=== PATIENT | male | born 1985 | race American Indian/Alaskan Native ===

== ENCOUNTER 2017-03-08 00:49 | Emergency (ER) | payer MEDICAID ==
[2017-03-08 01:02] VITALS: BP 164/90
[2017-03-08] MEDS ORDERED: HYDROmorphone 1 MG/ML Syringe IM ONE (01:04)
[2017-03-08] MEDS ORDERED: Ketorolac 30 MG/ML SDV IM ONE (01:04)
[2017-03-08] MEDS ORDERED: Promethazine 25 MG/ML SDV IM ONE (01:04)
--- NOTE | 2017-03-08 01:10 | EDM.PDOC ---
ED HPI GENERAL MEDICAL PROBLEM - General Chief Complaint: Back Pain or Injury Stated Complaint: BACK AND LEG PAIN Time Seen by Provider: 03/08/17 01:05 Source of Information: Reports: Patient History Limitations: Reports: No Limitations - History of Present Illness INITIAL COMMENTS - FREE TEXT/NARRATIVE: s/p lumbar laminiectomy since Nov' still in lot of pain but tolerable till tonight. Lower Back Pain Score (Numeric/FACES): 8 - Related Data Allergies Allergy/AdvReac Type Severity Reaction Status Date / Time No Known Allergies Allergy Verified 03/08/17 00:57 Past Medical History - Past Health History Medical/Surgical History: Denies Medical/Surgical History HEENT History: Reports: None Cardiovascular History: Reports: None Respiratory History: Reports: Asthma Gastrointestinal History: Reports: GERD, Hiatal Hernia Genitourinary History: Reports: None Musculoskeletal History: Reports: Other (See Below) Other Musculoskeletal History: left knee injury 1 year ago. buldging disc. L4-5 Neurological History: Reports: Other (See Below) Other Neuro History: bulging L4 & L5 discs Psychiatric History: Reports: None Endocrine/Metabolic History: Reports: None Hematologic History: Reports: None Immunologic History: Reports: None Oncologic (Cancer) History: Reports: None Dermatologic History: Reports: None - Infectious Disease History Infectious Disease History: Reports: Chicken Pox - Past Surgical History GI Surgical History: Reports: Other (See Below) Social & Family History - Family History : Reports: Diabetic Nephropathy Other Family History: mother Musculoskeletal: Reports: Arthritis Other Musculoskeletal Family History: mother Oncologic: Reports: Brain, Lung Other Oncologic Family History: father - Tobacco Use Smoking Status *Q: Light Tobacco Smoker Years of Tobacco use: 10 Packs/Tins Daily: 0.5 Used Tobacco, but Quit: No Second Hand Smoke Exposure: No - Caffeine Use Caffeine Use: Reports: Coffee, Energy Drinks, Soda - Alcohol Use Days Per Week of Alcohol Use: 0 Number of Drinks Per Day: 0 Total Drinks Per Week: 0 - Recreational Drug Use Recreational Drug Use: No - Living Situation & Occupation Living situation: Reports: with Family Occupation: Employed ED ROS GENERAL - Review of Systems Review Of Systems: ROS reveals no pertinent complaints other than HPI. ED EXAM,LOWER BACK PAIN/INJURY - Physical Exam Exam: See Below Exam Limited By: No Limitations General Appearance: Alert, WD/WN, Mild Distress, Other (pain) Ears: Hearing Grossly Normal Throat/Mouth: Normal Voice, No Airway Compromise Head: Atraumatic Neck: Non-Tender, Full Range of Motion Respiratory/Chest: No Respiratory Distress Cardiovascular: Regular Rate, Rhythm GI/Abdominal: Soft, Non-Tender Back Exam: Decreased Range of Motion, Muscle Spasm, Paraspinal Tenderness, Other (scar no s/s infection, gait limited to pain.) Neurological: Alert, No Motor/Sensory Deficits, Oriented x 3 Psychiatric: Tearful Skin Exam: Warm, Dry Lymphatic: No Adenopathy Course - Vital Signs Last Recorded V/S: Last Vital Signs Temp 35.6 C 03/08/17 00:58 Pulse 94 03/08/17 00:58 Resp 18 03/08/17 00:58 BP 164/90 H 03/08/17 00:58 Pulse Ox 97 03/08/17 00:58 - Orders/Labs/Meds Orders: Active Orders 24 hr Category Date Time Status HYDROmorphone [Dilaudid] Med 03/08/17 01:04 Once 1 mg IM ONETIME ONE Ketorolac [Toradol] Med 03/08/17 01:04 Once 30 mg IM ONETIME ONE Promethazine [Phenergan] Med 03/08/17 01:04 Once 25 mg IM ONETIME ONE Departure - Departure Time of Disposition: 01:07 Disposition: Home, Self-Care 01 Condition: good Clinical Impression: Lumbar radiculopathy, acute - Discharge Information Instructions: Back Pain, Adult, [id number] Forms: ED Department Discharge Additional Instructions: 1) rest avoid bendin lifting straining 2) try heat or ice to sore areas 3) follow up at clinic or recheck as needed rx given: robaxin 500 bid prn x 12 vicodin 5/325mg tid prn x 12 - My Orders Last 24 Hours: My Active Orders 03/08/17 01:04 HYDROmorphone [Dilaudid] 1 mg IM ONETIME ONE Ketorolac [Toradol] 30 mg IM ONETIME ONE Promethazine [Phenergan] 25 mg IM ONETIME ONE - Assessment/Plan Last 24 Hours: My Active Orders 03/08/17 01:04 HYDROmorphone [Dilaudid] 1 mg IM ONETIME ONE Ketorolac [Toradol] 30 mg IM ONETIME ONE Promethazine [Phenergan] 25 mg IM ONETIME ONE
== END 2017-03-08 01:39 | disposition home or self-care (01) ==
LOC: DL.ED 00:49
DX: M54.16 Radiculopathy, lumbar region (principal); J45.909 Unspecified asthma, uncomplicated; K21.9 Gastro-esophageal reflux disease without esophagitis; F17.210 Nicotine dependence, cigarettes, uncomplicated
CPT/HCPCS: 96372; 99283; J1170; J1885; J2550

== ENCOUNTER 2017-06-15 00:33 | Emergency (ER) | payer MEDICAID ==
[2017-06-15 00:42] VITALS: BP 140/82
[2017-06-15] MEDS ORDERED: Promethazine 25 MG/ML SDV IM ONE (00:56)
[2017-06-15] MEDS ORDERED: Butorphanol 2 MG/ML SDV IM ONE (00:56)
--- NOTE | 2017-06-15 01:03 | EDM.PDOC ---
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 states on pain management and able to go to work wearing knee brace but tonight been worse. Left Knee Pain Score (Numeric/FACES): 7 - Related Data Allergies Allergy/AdvReac Type Severity Reaction Status Date / Time No Known Allergies Allergy Verified 06/15/17 00:38 Home Meds: Home Meds oxyCODONE HCl/Acetaminophen [Endocet 10-325 mg Tablet] 1 each PO ASDIRECTED PRN 06/15/17 [History] Past Medical History - Past Health History Medical/Surgical History: Denies Medical/Surgical History HEENT History: Reports: None Cardiovascular History: Reports: None Respiratory History: Reports: Asthma Gastrointestinal History: Reports: GERD, Hiatal Hernia Genitourinary History: Reports: None Musculoskeletal History: Reports: Other (See Below) Other Musculoskeletal History: left knee injury in 2016. buldging disc. L4-5. Back surgery in 2017 Neurological History: Reports: Other (See Below) Other Neuro History: bulging L4 & L5 discs Psychiatric History: Reports: None Endocrine/Metabolic History: Reports: None Hematologic History: Reports: None Immunologic History: Reports: None Oncologic (Cancer) History: Reports: None Dermatologic History: Reports: None - Infectious Disease History Infectious Disease History: Reports: Chicken Pox - Past Surgical History Head Surgeries/Procedures: Reports: None Social & Family History - Family History : Reports: Diabetic Nephropathy Other Family History: mother Musculoskeletal: Reports: Arthritis Other Musculoskeletal Family History: mother Oncologic: Reports: Brain, Lung Other Oncologic Family History: father - Tobacco Use Smoking Status *Q: Heavy Tobacco Smoker Years of Tobacco use: 10 Packs/Tins Daily: 1 Used Tobacco, but Quit: No Second Hand Smoke Exposure: No - Caffeine Use Caffeine Use: Reports: Coffee, Energy Drinks, Soda - Alcohol Use Days Per Week of Alcohol Use: 0 Number of Drinks Per Day: 0 Total Drinks Per Week: 0 - Recreational Drug Use Recreational Drug Use: No - Living Situation & Occupation Living situation: Reports: with Family Occupation: Employed Review of Systems - Review of Systems Review Of Systems: ROS reveals no pertinent complaints other than HPI. ED EXAM, GENERAL - Physical Exam Exam: See Below Exam Limited By: No Limitations General Appearance: Alert, WD/WN, No Apparent Distress, Mild Distress, Other ( tearful) Ears: Hearing Grossly Normal Throat/Mouth: Normal Voice, No Airway Compromise Head: Atraumatic Neck: Non-Tender, Full Range of Motion Respiratory/Chest: No Respiratory Distress Cardiovascular: Regular Rate, Rhythm GI/Abdominal: Soft, Non-Tender Extremities: Other (left knee exhibit laxity on R/P, gait limited to pain, NV wnl) Neurological: Alert, Oriented, Normal Cognition, Normal Gait, No Motor/Sensory Deficits Psychiatric: Tearful Skin Exam: Warm, Dry, Normal Color Lymphatic: No Adenopathy Course - Vital Signs Last Recorded V/S: Last Vital Signs Temp 35.9 C 06/15/17 00:39 Pulse 70 06/15/17 00:39 Resp 18 06/15/17 00:39 BP 140/82 06/15/17 00:39 Pulse Ox 100 06/15/17 00:39 - Orders/Labs/Meds Orders: Active Orders 24 hr Category Date Time Status Butorphanol [Stadol] Med 06/15/17 00:56 Once 2 mg IM ONETIME ONE Promethazine [Phenergan] Med 06/15/17 00:56 Once 50 mg IM ONETIME ONE Medication Orders Butorphanol Tartrate (Stadol) 2 mg IM ONETIME ONE Stop: 06/15/17 00:57 Promethazine HCl (Phenergan) 50 mg IM ONETIME ONE Stop: 06/15/17 00:57 Meds: Medications Generic Name Dose Route Start Last Admin Trade Name Freq PRN Reason Stop Dose Admin Butorphanol Tartrate 2 mg 06/15/17 00:56 Stadol IM 06/15/17 00:57 ONETIME ONE Promethazine HCl 50 mg 06/15/17 00:56 Phenergan IM 06/15/17 00:57 ONETIME ONE Departure - Departure Time of Disposition: 01:01 Disposition: Home, Self-Care 01 Condition: Good Clinical Impression: Internal derangement of knee Qualifiers: Laterality: left Qualified Code(s): M23.92 - Unspecified internal derangement of left knee - Discharge Information Instructions: Knee Effusion, [id number] Forms: ED Department Discharge Additional Instructions: 1) elevate leg as much as possible next 48 hours 2) call ORTHO tomorrow for MRI of left knee 3) continue home meds - My Orders Last 24 Hours: My Active Orders 06/15/17 00:56 Butorphanol [Stadol] 2 mg IM ONETIME ONE Promethazine [Phenergan] 50 mg IM ONETIME ONE - Assessment/Plan Last 24 Hours: My Active Orders 06/15/17 00:56 Butorphanol [Stadol] 2 mg IM ONETIME ONE Promethazine [Phenergan] 50 mg IM ONETIME ONE
== END 2017-06-15 01:21 | disposition home or self-care (01) ==
LOC: DL.ED 00:33
DX: M23.92 Unspecified internal derangement of left knee (principal); J45.909 Unspecified asthma, uncomplicated; K21.9 Gastro-esophageal reflux disease without esophagitis; F17.210 Nicotine dependence, cigarettes, uncomplicated
CPT/HCPCS: 96372; 99283; J0595; J2550

== ENCOUNTER 2017-09-26 23:16 | Emergency (ER) | payer MEDICAID ==
[2017-09-26 23:25] VITALS: BP 144/76
[2017-09-26] MEDS ORDERED: Amoxicillin/Clavulanate K 500-125 MG Tab PO ONE (23:33)
--- NOTE | 2017-09-26 23:40 | EDM.PDOC ---
ED HPI GENERAL MEDICAL PROBLEM - General Chief Complaint: Respiratory Problem Stated Complaint: POSSIBLE BRONCHITIS [id number] Time Seen by Provider: 09/26/17 23:30 Source of Information: Reports: Patient History Limitations: Reports: No Limitations - History of Present Illness INITIAL COMMENTS - FREE TEXT/NARRATIVE: This 31 yo male patient reports to the ED with a 2 day history of head congestion and nasal drainage. The patient reports a history of sinus infections that only improve by antibiotics Onset Date: 09/25/17 Duration: Constant, Getting Worse Location: Reports: Face Quality: Reports: Pressure Severity: Severe Improves with: Reports: None Worsens with: Reports: None Associated Symptoms: Reports: Cough Face Pain Score (Numeric/FACES): 5 - Related Data Allergies Allergy/AdvReac Type Severity Reaction Status Date / Time No Known Allergies Allergy Verified 09/26/17 23:29 Home Meds: Home Meds oxyCODONE HCl/Acetaminophen [Endocet 10-325 mg Tablet] 1 each PO BID 06/15/17 [ History] Past Medical History - Past Health History Medical/Surgical History: Denies Medical/Surgical History HEENT History: Reports: None Cardiovascular History: Reports: None Respiratory History: Reports: Asthma Gastrointestinal History: Reports: GERD, Hiatal Hernia Genitourinary History: Reports: None Musculoskeletal History: Reports: Back Pain, Chronic, Other (See Below) Other Musculoskeletal History: left knee injury in 2016. buldging disc. L4-5. Back surgery in 2017 Neurological History: Reports: Other (See Below) Other Neuro History: bulging L4 & L5 discs Psychiatric History: Reports: None Endocrine/Metabolic History: Reports: None Hematologic History: Reports: None Immunologic History: Reports: None Oncologic (Cancer) History: Reports: None Dermatologic History: Reports: None - Infectious Disease History Infectious Disease History: Reports: Chicken Pox - Past Surgical History Head Surgeries/Procedures: Reports: None Social & Family History - Family History : Reports: Diabetic Nephropathy Other Family History: mother Musculoskeletal: Reports: Arthritis Other Musculoskeletal Family History: mother Oncologic: Reports: Brain, Lung Other Oncologic Family History: father - Tobacco Use Smoking Status *Q: Current Every Day Smoker Years of Tobacco use: 10 Packs/Tins Daily: 0.5 Used Tobacco, but Quit: No Second Hand Smoke Exposure: Yes - Caffeine Use Caffeine Use: Reports: Coffee, Energy Drinks, Soda - Alcohol Use Days Per Week of Alcohol Use: 0 Number of Drinks Per Day: 0 Total Drinks Per Week: 0 - Recreational Drug Use Recreational Drug Use: No - Living Situation & Occupation Living situation: Reports: with Family Occupation: Employed ED ROS GENERAL - Review of Systems Review Of Systems: ROS reveals no pertinent complaints other than HPI. ED EXAM, GENERAL - Physical Exam Exam: See Below Exam Limited By: No Limitations General Appearance: Alert, WD/WN, Moderate Distress Eye Exam: Bilateral Eye: EOMI, Normal Inspection, PERRL Ears: Normal External Exam, Normal Canal, Hearing Grossly Normal, Normal TMs Nose: Normal Inspection, No Blood, Nasal Drainage Throat/Mouth: Normal Inspection, Normal Lips, Normal Teeth, Normal Gums, Normal Oropharynx, Normal Voice, No Airway Compromise Head: Atraumatic, Normocephalic, Sinus Tenderness Neck: Normal Inspection, Supple, Non-Tender, Full Range of Motion Respiratory/Chest: No Respiratory Distress, Lungs Clear, Normal Breath Sounds, No Accessory Muscle Use, Chest Non-Tender Cardiovascular: Normal Peripheral Pulses, Regular Rate, Rhythm, No Edema, No Gallop, No JVD, No Murmur, No Rub GI/Abdominal: Normal Bowel Sounds, Soft, Non-Tender, No Organomegaly, No Distention, No Abnormal Bruit, No Mass (Male) Exam: Deferred Rectal (Males) Exam: Deferred Back Exam: Normal Inspection, Full Range of Motion, NT Extremities: Normal Inspection, Normal Range of Motion, Non-Tender, Normal Capillary Refill, No Pedal Edema Neurological: Alert, Oriented, CN II-XII Intact, Normal Cognition, Normal Gait, Normal Reflexes, No Motor/Sensory Deficits Psychiatric: Normal Affect, Normal Mood Skin Exam: Warm, Dry, Intact, Normal Color, No Rash Lymphatic: No Adenopathy Course - Vital Signs Last Recorded V/S: Last Vital Signs Temp 35.9 C 09/26/17 23:22 Pulse 95 09/26/17 23:22 Resp 18 09/26/17 23:22 BP 144/76 H 09/26/17 23:22 Pulse Ox 96 09/26/17 23:22 - Orders/Labs/Meds Meds: Medications Discontinued Medications Generic Name Dose Route Start Last Admin Trade Name Freq PRN Reason Stop Dose Admin Amoxicillin/Clavulanate Potassium 1 tab 09/26/17 23:33 Augmentin 500 Mg\125 Mg PO 09/26/17 23:34 ONETIME ONE Departure - Departure Time of Disposition: 23:36 Disposition: Home, Self-Care 01 Condition: Fair Clinical Impression: Sinusitis Qualifiers: Sinusitis location: maxillary Chronicity: acute Recurrence: non-recurrent Qualified Code(s): J01.00 - Acute maxillary sinusitis, unspecified - Discharge Information Instructions: Sinusitis, Adult, [id number] Care Plan Goals: The patient was advised of the examination results during the visit. The patient was given an oral dose of Augmentin while in the ED. The patient was discharged with a script for Augmentin (500/125) to take 1 by mouth 2 times per day for 10 days. If the patient has any additional symptoms or concerns, the patient should follow-up with his primary care facility or return to the ED.
== END 2017-09-27 00:05 | disposition home or self-care (01) ==
LOC: DL.ED 23:16
DX: J01.00 Acute maxillary sinusitis, unspecified (principal); F17.210 Nicotine dependence, cigarettes, uncomplicated
CPT/HCPCS: 99283; A9270

== ENCOUNTER 2017-11-05 23:35 | Emergency (ER) | payer SELFPAY ==
[2017-11-05 23:50] VITALS: BP 128/84
[2017-11-05] MEDS ORDERED: Albuterol/Ipratropium 3.0-0.5 MG/3 ML Neb Soln NEB ONE (23:58)
--- NOTE | 2017-11-06 00:02 | EDM.PDOC ---
ED HPI GENERAL MEDICAL PROBLEM - General Chief Complaint: Respiratory Problem Stated Complaint: COUGHING [id number] Time Seen by Provider: 11/05/17 23:59 Source of Information: Reports: Patient History Limitations: Reports: No Limitations - History of Present Illness INITIAL COMMENTS - FREE TEXT/NARRATIVE: 1 week h/o cough congestion not getting better. - Related Data Allergies Allergy/AdvReac Type Severity Reaction Status Date / Time No Known Allergies Allergy Verified 11/05/17 23:53 Home Meds: Home Meds oxyCODONE HCl/Acetaminophen [Endocet 10-325 mg Tablet] 1 each PO BID 06/15/17 [ History] Past Medical History - Past Health History Medical/Surgical History: Denies Medical/Surgical History HEENT History: Reports: None Cardiovascular History: Reports: None Respiratory History: Reports: Asthma Gastrointestinal History: Reports: GERD, Hiatal Hernia Genitourinary History: Reports: None Musculoskeletal History: Reports: Back Pain, Chronic, Other (See Below) Other Musculoskeletal History: left knee injury in 2016. buldging disc. L4-5. Back surgery in 2017 Neurological History: Reports: Other (See Below) Other Neuro History: bulging L4 & L5 discs Psychiatric History: Reports: None Endocrine/Metabolic History: Reports: None Hematologic History: Reports: None Immunologic History: Reports: None Oncologic (Cancer) History: Reports: None Dermatologic History: Reports: None - Infectious Disease History Infectious Disease History: Reports: Chicken Pox - Past Surgical History Head Surgeries/Procedures: Reports: None Social & Family History - Family History : Reports: Diabetic Nephropathy Other Family History: mother Musculoskeletal: Reports: Arthritis Other Musculoskeletal Family History: mother Oncologic: Reports: Brain, Lung Other Oncologic Family History: father - Tobacco Use Smoking Status *Q: Current Every Day Smoker Years of Tobacco use: 15 Packs/Tins Daily: 20 Used Tobacco, but Quit: No Second Hand Smoke Exposure: Yes - Caffeine Use Caffeine Use: Reports: Coffee, Soda - Alcohol Use Days Per Week of Alcohol Use: 0 Number of Drinks Per Day: 0 Total Drinks Per Week: 0 - Recreational Drug Use Recreational Drug Use: No - Living Situation & Occupation Living situation: Reports: with Family Occupation: Employed ED ROS GENERAL - Review of Systems Review Of Systems: ROS reveals no pertinent complaints other than HPI. ED EXAM, GENERAL - Physical Exam Exam: See Below Exam Limited By: No Limitations General Appearance: Alert, WD/WN, Mild Distress, Moderate Distress, Other ( episodic cough spasm) Ears: Hearing Grossly Normal Throat/Mouth: Normal Voice, No Airway Compromise Head: Atraumatic Neck: Non-Tender, Full Range of Motion Respiratory/Chest: No Respiratory Distress, No Accessory Muscle Use, Rhonchi, Wheezing. No: Decreased Breath Sounds, Accessory Muscle Use, Retractions, Splinting Cardiovascular: Regular Rate, Rhythm GI/Abdominal: Soft, Non-Tender Neurological: Alert, Oriented, Normal Cognition, Normal Gait, No Motor/Sensory Deficits Psychiatric: Normal Affect, Normal Mood Skin Exam: Warm, Dry, Normal Color Lymphatic: No Adenopathy Course - Vital Signs Last Recorded V/S: Last Vital Signs Temp 36.6 C 11/05/17 23:45 Pulse 101 H 11/05/17 23:45 Resp 21 H 11/05/17 23:45 BP 128/84 11/05/17 23:45 Pulse Ox 91 L 11/05/17 23:45 - Orders/Labs/Meds Orders: Active Orders 24 hr Category Date Time Status RT Aerosol Therapy [RC] ASDIRECTED Care 11/05/17 23:58 Active Chest 2V [CR] Urgent Exams 11/06/17 00:05 Taken Meds: Medications Discontinued Medications Generic Name Dose Route Start Last Admin Trade Name Freq PRN Reason Stop Dose Admin Albuterol/Ipratropium 3 ml 11/05/17 23:58 11/06/17 00:01 Duoneb 3.0-0.5 Mg/3 Ml NEB 11/05/17 23:59 3 ml ONETIME ONE Administration Amoxicillin/Clavulanate Potassium 1 tab 11/06/17 00:44 Augmentin 500 Mg\125 Mg PO 11/06/17 00:45 ONETIME ONE Promethazine HCl/Codeine 5 ml 11/06/17 00:41 Phenergan With Codeine PO 11/06/17 00:42 ONETIME ONE - Re-Assessments/Exams Free Text/Narrative Re-Assessment/Exam: 11/06/17 00:45 results discussed with pt who is feeling better s/p duoneb. Departure - Departure Time of Disposition: 00:46 Disposition: Home, Self-Care 01 Condition: Good Clinical Impression: Bronchospasm with bronchitis, acute - Discharge Information Instructions: Acute Bronchitis, [id number] Forms: ED Department Discharge Additional Instructions: 1) rest and sleep as much as possible 2) take neb treatment 3 times daily as needed rx given; augmentin 500mg bid x 20 albuterol 2.5mg solution tid prn phenergan codeine syrup qid prn 4 oz - My Orders Last 24 Hours: My Active Orders 11/05/17 23:58 RT Aerosol Therapy [RC] ASDIRECTED 11/06/17 00:05 Chest 2V [CR] Urgent - Assessment/Plan Last 24 Hours: My Active Orders 11/05/17 23:58 RT Aerosol Therapy [RC] ASDIRECTED 11/06/17 00:05 Chest 2V [CR] Urgent
[2017-11-06] MEDS ORDERED: Codeine/Promethazine 10-6.25 MG/5 ML Syrup 5 ML UD Cup PO ONE (00:41)
[2017-11-06] MEDS ORDERED: Amoxicillin/Clavulanate K 500-125 MG Tab PO ONE (00:44)
== END 2017-11-06 00:56 | disposition home or self-care (01) ==
LOC: DL.ED 23:35
DX: J20.9 Acute bronchitis, unspecified (principal); F17.210 Nicotine dependence, cigarettes, uncomplicated
CPT/HCPCS: 71046; 99283; A9270

== ENCOUNTER 2017-11-09 19:10 | Emergency (ER) | payer SELFPAY ==
[2017-11-09 19:18] VITALS: BP 143/82
[2017-11-09] MEDS ORDERED: methylPREDNISolone Sodium Succinate 125 MG/2 ML SDV IM ONE (19:36)
[2017-11-09] MEDS ORDERED: Albuterol/Ipratropium 3.0-0.5 MG/3 ML Neb Soln NEB ONE (19:36)
--- NOTE | 2017-11-09 19:39 | EDM.PDOC ---
ED HPI GENERAL MEDICAL PROBLEM - General Chief Complaint: Respiratory Problem Stated Complaint: COUGHING STILL, [id number] Time Seen by Provider: 11/09/17 19:37 Source of Information: Reports: Patient History Limitations: Reports: No Limitations - History of Present Illness INITIAL COMMENTS - FREE TEXT/NARRATIVE: was here Dx with bronchitis not getting better with ABX states sometimes IM steroids is needed. been coughing all night not sleeping. Chest Pain Score (Numeric/FACES): 5 - Related Data Allergies Allergy/AdvReac Type Severity Reaction Status Date / Time No Known Allergies Allergy Verified 11/09/17 19:18 Home Meds: Home Meds oxyCODONE HCl/Acetaminophen [Endocet 10-325 mg Tablet] 1 each PO BID 06/15/17 [ History] Albuterol [IJP: Albuterol] 1 appful INH Q4HR PRN 11/09/17 [History] Amoxicillin/Potassium Clav [Amox Tr-K Clv 500-125 mg Tab] 1 each PO BID [History] Past Medical History - Past Health History Medical/Surgical History: Denies Medical/Surgical History HEENT History: Reports: None Cardiovascular History: Reports: None Respiratory History: Reports: Asthma Gastrointestinal History: Reports: GERD, Hiatal Hernia Genitourinary History: Reports: None Musculoskeletal History: Reports: Back Pain, Chronic, Other (See Below) Other Musculoskeletal History: left knee injury in 2016. buldging disc. L4-5. Back surgery in 2017 Neurological History: Reports: Other (See Below) Other Neuro History: bulging L4 & L5 discs Psychiatric History: Reports: None Endocrine/Metabolic History: Reports: None Hematologic History: Reports: None Immunologic History: Reports: None Oncologic (Cancer) History: Reports: None Dermatologic History: Reports: None - Infectious Disease History Infectious Disease History: Reports: Chicken Pox - Past Surgical History Head Surgeries/Procedures: Reports: None Social & Family History - Family History : Reports: Diabetic Nephropathy Other Family History: mother Musculoskeletal: Reports: Arthritis Other Musculoskeletal Family History: mother Oncologic: Reports: Brain, Lung Other Oncologic Family History: father - Tobacco Use Smoking Status *Q: Current Every Day Smoker Years of Tobacco use: 16 Packs/Tins Daily: 1 Used Tobacco, but Quit: No Second Hand Smoke Exposure: Yes - Caffeine Use Caffeine Use: Reports: Coffee, Soda - Alcohol Use Days Per Week of Alcohol Use: 0 Number of Drinks Per Day: 0 Total Drinks Per Week: 0 - Recreational Drug Use Recreational Drug Use: No - Living Situation & Occupation Living situation: Reports: with Family Occupation: Employed ED ROS GENERAL - Review of Systems Review Of Systems: ROS reveals no pertinent complaints other than HPI. ED EXAM, GENERAL - Physical Exam Exam: See Below Exam Limited By: No Limitations General Appearance: Alert, WD/WN, Mild Distress, Other (episodic cough spasms) Ears: Hearing Grossly Normal Throat/Mouth: Normal Voice, No Airway Compromise, Inflammation Head: Atraumatic Neck: Non-Tender, Full Range of Motion Respiratory/Chest: No Respiratory Distress, No Accessory Muscle Use, Decreased Breath Sounds, Rhonchi, Wheezing. No: Retractions, Splinting Cardiovascular: Regular Rate, Rhythm GI/Abdominal: Soft, Non-Tender Neurological: Alert, Oriented, Normal Cognition, Normal Gait, No Motor/Sensory Deficits Psychiatric: Normal Affect, Normal Mood Skin Exam: Warm, Dry, Normal Color Lymphatic: No Adenopathy Course - Vital Signs Last Recorded V/S: Last Vital Signs Temp 36.2 C 11/09/17 19:15 Pulse 91 11/09/17 19:15 Resp 18 11/09/17 19:15 BP 143/82 H 11/09/17 19:15 Pulse Ox 94 L 11/09/17 19:15 - Orders/Labs/Meds Orders: Active Orders 24 hr Category Date Time Status RT Aerosol Therapy [RC] ASDIRECTED Care 11/09/17 19:37 Active CULTURE STREP A CONFIRMATION [] Stat Lab 11/09/17 19:34 Results STREP SCRN A RAPID W CULT CONF [] Stat Lab 11/09/17 19:34 Results Meds: Medications Discontinued Medications Generic Name Dose Route Start Last Admin Trade Name Freq PRN Reason Stop Dose Admin Albuterol/Ipratropium 3 ml 11/09/17 19:36 11/09/17 20:00 Duoneb 3.0-0.5 Mg/3 Ml NEB 11/09/17 19:37 3 ml ONETIME ONE Administration Methylprednisolone Sodium Succinate 125 mg 11/09/17 19:36 11/09/17 19:59 Solu-Medrol IM 11/09/17 19:37 125 mg ONETIME ONE Administration - Re-Assessments/Exams Free Text/Narrative Re-Assessment/Exam: 11/09/17 20:28 re-exam; feeling much better s/p duo + IM solumed Departure - Departure Time of Disposition: 20:28 Disposition: Home, Self-Care 01 Condition: Good Clinical Impression: Bronchospasm with bronchitis, acute - Discharge Information Instructions: Acute Bronchitis, [id number] Forms: ED Department Discharge Additional Instructions: 1) continue nebs 2) recheck as needed rx given; medrol dospak - My Orders Last 24 Hours: My Active Orders 11/09/17 19:34 CULTURE STREP A CONFIRMATION [RM] Stat STREP SCRN A RAPID W CULT CONF [RM] Stat 11/09/17 19:37 RT Aerosol Therapy [RC] ASDIRECTED - Assessment/Plan Last 24 Hours: My Active Orders 11/09/17 19:34 CULTURE STREP A CONFIRMATION [RM] Stat STREP SCRN A RAPID W CULT CONF [RM] Stat 11/09/17 19:37 RT Aerosol Therapy [RC] ASDIRECTED
== END 2017-11-09 20:32 | disposition home or self-care (01) ==
LOC: DL.ED 19:10
DX: J20.9 Acute bronchitis, unspecified (principal); F17.210 Nicotine dependence, cigarettes, uncomplicated; J45.909 Unspecified asthma, uncomplicated
CPT/HCPCS: 87081; 87430; 87804; 96372; 99283; J2930; 99284

== ENCOUNTER 2017-11-29 01:51 | Emergency (ER) | payer OTHER ==
[2017-11-29 02:04] VITALS: BP 146/78
[2017-11-29] MEDS ORDERED: Sulfamethoxazole/Trimethoprim 800-160 MG Tab PO ONE (02:11)
[2017-11-29] MEDS ORDERED: Cephalexin 500 MG Cap PO ONE (02:11)
--- NOTE | 2017-11-29 02:15 | EDM.PDOC ---
ED HPI GENERAL MEDICAL PROBLEM - General Chief Complaint: Skin Complaint Stated Complaint: LUMP UNDER NECK [phone] Time Seen by Provider: 11/29/17 02:10 Source of Information: Reports: Patient History Limitations: Reports: No Limitations - History of Present Illness INITIAL COMMENTS - FREE TEXT/NARRATIVE: This 32 yo male patient reports to the ED with swelling to his right lower lip and under his jaw. The patient reports his pain started yesterday. Onset Date: 11/28/17 Duration: Constant, Getting Worse Location: Reports: Face Quality: Reports: Ache, Dull Severity: Moderate Improves with: Reports: None Worsens with: Reports: None Neck Pain Score (Numeric/FACES): 6 - Related Data Allergies Allergy/AdvReac Type Severity Reaction Status Date / Time No Known Allergies Allergy Verified 11/29/17 02:04 Home Meds: Home Meds oxyCODONE HCl/Acetaminophen [Endocet 10-325 mg Tablet] 1 each PO BID 06/15/17 [ History] Albuterol [IJP: Albuterol] 1 appful INH Q4HR PRN 11/09/17 [History] Amoxicillin/Potassium Clav [Amox Tr-K Clv 500-125 mg Tab] 1 each PO BID [History] Montelukast [Singulair] 10 mg PO DAILY 11/29/17 [History] Past Medical History - Past Health History Medical/Surgical History: Denies Medical/Surgical History HEENT History: Reports: None Cardiovascular History: Reports: None Respiratory History: Reports: Asthma Gastrointestinal History: Reports: GERD, Hiatal Hernia Genitourinary History: Reports: None Musculoskeletal History: Reports: Back Pain, Chronic, Other (See Below) Other Musculoskeletal History: left knee injury in 2016. buldging disc. L4-5. Back surgery in 2017 Neurological History: Reports: Other (See Below) Other Neuro History: bulging L4 & L5 discs Psychiatric History: Reports: None Endocrine/Metabolic History: Reports: None Hematologic History: Reports: None Immunologic History: Reports: None Oncologic (Cancer) History: Reports: None Dermatologic History: Reports: None - Infectious Disease History Infectious Disease History: Reports: Chicken Pox - Past Surgical History Head Surgeries/Procedures: Reports: None Social & Family History - Family History : Reports: Diabetic Nephropathy Other Family History: mother Musculoskeletal: Reports: Arthritis Other Musculoskeletal Family History: mother Oncologic: Reports: Brain, Lung Other Oncologic Family History: father - Tobacco Use Smoking Status *Q: Current Every Day Smoker Years of Tobacco use: 17 Packs/Tins Daily: 10 Used Tobacco, but Quit: No Second Hand Smoke Exposure: Yes - Caffeine Use Caffeine Use: Reports: Coffee, Soda, Tea - Alcohol Use Days Per Week of Alcohol Use: 0 Number of Drinks Per Day: 0 Total Drinks Per Week: 0 - Recreational Drug Use Recreational Drug Use: No - Living Situation & Occupation Living situation: Reports: with Family Occupation: Employed ED ROS GENERAL - Review of Systems Review Of Systems: ROS reveals no pertinent complaints other than HPI. ED EXAM, SKIN/RASH Exam: See Below Exam Limited By: No Limitations General Appearance: Alert, WD/WN, Moderate Distress Eye Exam: Bilateral Eye: EOMI, Normal Inspection, PERRL Ears: Normal External Exam, Normal Canal, Hearing Grossly Normal, Normal TMs Nose: Normal Inspection, Normal Mucosa, No Blood Throat/Mouth: Normal Teeth, Normal Gums, Normal Oropharynx, Normal Voice, No Airway Compromise, Other (abscess to the right lower lip (foliculitis)) Head: Atraumatic, Normocephalic Neck: Full Range of Motion, Tender Lateral Respiratory/Chest: No Respiratory Distress, Lungs Clear, Normal Breath Sounds, No Accessory Muscle Use, Chest Non-Tender Cardiovascular: Normal Peripheral Pulses, Regular Rate, Rhythm, No Edema, No Gallop, No JVD, No Murmur, No Rub GI/Abdominal: Normal Bowel Sounds, Soft, Non-Tender, No Organomegaly, No Distention, No Abnormal Bruit, No Mass (Male) Exam: Deferred Rectal (Males) Exam: Deferred Back Exam: Normal Inspection, Full Range of Motion, NT Extremities: Normal Inspection, Normal Range of Motion, Non-Tender, No Pedal Edema, Normal Capillary Refill Neurological: Alert, Oriented, CN II-XII Intact, Normal Cognition, Normal Gait, Normal Reflexes, No Motor/Sensory Deficits Psychiatric: Normal Affect, Normal Mood Skin: Erythema Location, Skin: Face Associated features: Warmth, Tenderness, Swelling Lymphatic: No Adenopathy Course - Vital Signs Last Recorded V/S: Last Vital Signs Temp 36.6 C 11/29/17 01:55 Pulse 84 11/29/17 01:55 Resp 18 11/29/17 01:55 BP 146/78 H 11/29/17 01:55 Pulse Ox 98 11/29/17 01:55 - Orders/Labs/Meds Meds: Medications Discontinued Medications Generic Name Dose Route Start Last Admin Trade Name Gary PRN Reason Stop Dose Admin Cephalexin 500 mg 11/29/17 02:11 Keflex PO 11/29/17 02:12 ONETIME ONE Trimethoprim/Sulfamethoxazole 1 tab 11/29/17 02:11 Septra Ds PO 11/29/17 02:12 ONETIME ONE Departure - Departure Time of Disposition: 02:20 Disposition: Home, Self-Care 01 Condition: Fair Clinical Impression: Folliculitis Cellulitis Qualifiers: Site of cellulitis: face Qualified Code(s): L03.211 - Cellulitis of face - Discharge Information Instructions: Cellulitis, Adult, [id number] Referrals: Shravan Grossman NP [Primary Care Provider] - Forms: ED Department Discharge Care Plan Goals: The patient was advised of the examination results during the visit. The patient was given an oral dose of Keflex and Bactim while in the ED. The patient was discharged with a script for Keflex (500 mg) to take 1 by mouth 3 times per day for 10 days and Bactrim DS to take 1 by mouth 2 times per day for 10 days. If the patient has any additional symptoms or concerns, the patient should follow-up with his primary care facility or return to the emergency department.
== END 2017-11-29 02:28 | disposition home or self-care (01) ==
LOC: DL.ED 01:51
DX: L73.9 Follicular disorder, unspecified (principal); L03.211 Cellulitis of face; F17.210 Nicotine dependence, cigarettes, uncomplicated; Z79.899 Other long term (current) drug therapy
CPT/HCPCS: 99283; A9270

== ENCOUNTER 2017-12-15 21:24 | Emergency (ER) | payer OTHER ==
[2017-12-15 21:37] VITALS: BP 141/78
[2017-12-15] MEDS: Acetaminophen/oxyCODONE 325-5 MG Tab PO ONE (22:28)
[2017-12-15] MEDS: predniSONE 20 MG Tab PO ONE (22:28)
[2017-12-15] MEDS: Cyclobenzaprine 10 MG Tab PO ONE (22:28)
--- NOTE | 2017-12-15 22:32 | EDM.PDOC ---
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 hx of chronic back pain and previous failed surgery. States he wants one of "those xrays to see if he damaged more" Pain worse with movement, No numbness or tingling Left Lower Back Pain Score (Numeric/FACES): 7 - Related Data Allergies Allergy/AdvReac Type Severity Reaction Status Date / Time No Known Allergies Allergy Verified 12/15/17 21:38 Home Meds: Home Meds oxyCODONE HCl/Acetaminophen [Endocet 10-325 mg Tablet] 1 each PO BID 06/15/17 [ History] Albuterol [IJP: Albuterol] 1 appful INH Q4HR PRN 11/09/17 [History] Amoxicillin/Potassium Clav [Amox Tr-K Clv 500-125 mg Tab] 1 each PO BID [History] Montelukast [Singulair] 10 mg PO DAILY 11/29/17 [History] Past Medical History - Past Health History Medical/Surgical History: Denies Medical/Surgical History HEENT History: Reports: None Cardiovascular History: Reports: None Respiratory History: Reports: Asthma Gastrointestinal History: Reports: GERD, Hiatal Hernia Genitourinary History: Reports: None Musculoskeletal History: Reports: Back Pain, Chronic, Other (See Below) Other Musculoskeletal History: left knee injury in 2016. buldging disc. L4-5. Back surgery in 2017 Neurological History: Reports: Other (See Below) Other Neuro History: bulging L4 & L5 discs Psychiatric History: Reports: None Endocrine/Metabolic History: Reports: None Hematologic History: Reports: None Immunologic History: Reports: None Oncologic (Cancer) History: Reports: None Dermatologic History: Reports: None - Infectious Disease History Infectious Disease History: Reports: Chicken Pox - Past Surgical History Head Surgeries/Procedures: Reports: None Social & Family History - Family History : Reports: Diabetic Nephropathy Other Family History: mother Musculoskeletal: Reports: Arthritis Other Musculoskeletal Family History: mother Oncologic: Reports: Brain, Lung Other Oncologic Family History: father - Tobacco Use Smoking Status *Q: Current Every Day Smoker Years of Tobacco use: 16 Packs/Tins Daily: 20 Used Tobacco, but Quit: No Second Hand Smoke Exposure: Yes - Caffeine Use Caffeine Use: Reports: Coffee, Soda - Alcohol Use Days Per Week of Alcohol Use: 0 Number of Drinks Per Day: 0 Total Drinks Per Week: 0 - Recreational Drug Use Recreational Drug Use: No - Living Situation & Occupation Living situation: Reports: with Family Occupation: Employed ED ROS GENERAL - Review of Systems Review Of Systems: ROS reveals no pertinent complaints other than HPI. Constitutional: Reports: No Symptoms HEENT: Reports: No Symptoms Respiratory: Reports: No Symptoms Cardiovascular: Reports: No Symptoms GI/Abdominal: Reports: No Symptoms : Reports: No Symptoms Musculoskeletal: Reports: Back Pain (mid to low back pain greater on left than right. radiating to right buttcok) Skin: Reports: No Symptoms Neurological: Reports: No Symptoms Psychiatric: Reports: No Symptoms ED EXAM,LOWER BACK PAIN/INJURY - Physical Exam Exam: See Below Exam Limited By: No Limitations General Appearance: Alert, Mild Distress (flinches with movment to right) Eye Exam: Bilateral Eye: EOMI Ears: Normal External Exam Nose: Normal Inspection Throat/Mouth: Normal Inspection Head: Atraumatic, Normocephalic Neck: Normal Inspection, Full Range of Motion Respiratory/Chest: No Respiratory Distress, Lungs Clear, Normal Breath Sounds Cardiovascular: Normal Peripheral Pulses GI/Abdominal: Normal Bowel Sounds Back Exam: Paraspinal Tenderness (right lumbar). No: Vertebral Tenderness Extremities: Normal Range of Motion. No: Limited Range of Motion Neurological: Alert, Normal Dorsiflexion, Normal Plantar Flexion, Straight Leg Raise (R) (mild). No: Abnormal Gait, Abnormal Sensation, Difficulty Walking Psychiatric: No: Normal Affect Skin Exam: Warm, Dry, Intact, Normal Color Course - Vital Signs Last Recorded V/S: Last Vital Signs Temp 97.4 F 12/15/17 21:29 Pulse 78 12/15/17 21:29 Resp 16 12/15/17 21:29 BP 141/78 H 12/15/17 21:29 Pulse Ox 97 12/15/17 21:29 - Orders/Labs/Meds Meds: Medications Discontinued Medications Generic Name Dose Route Start Last Admin Trade Name Freq PRN Reason Stop Dose Admin Cyclobenzaprine HCl 10 mg 12/15/17 22:22 12/15/17 22:28 Flexeril PO 12/15/17 22:23 10 mg ONETIME ONE Administration Oxycodone/Acetaminophen 1 tab 12/15/17 22:23 12/15/17 22:28 Percocet 325-5 Mg PO 12/15/17 22:24 1 tab ONETIME ONE Administration Prednisone 20 mg 12/15/17 22:22 12/15/17 22:28 Prednisone PO 12/15/17 22:23 20 mg ONETIME ONE Administration Departure - Departure Time of Disposition: 22:33 Disposition: Home, Self-Care 01 Condition: Good Clinical Impression: Chronic back pain Qualifiers: Back pain location: low back pain Back pain laterality: right Sciatica presence : without sciatica Qualified Code(s): M54.5 - Low back pain; G89.29 - Other chronic pain; G89.29 - Other chronic pain Low back pain Qualifiers: Chronicity: acute Back pain laterality: left Sciatica presence: with sciatica Sciatica laterality: sciatica of left side Qualified Code(s): M54.42 - Lumbago with sciatica, left side - Discharge Information Instructions: Muscle Strain Referrals: PCP,None [Primary Care Provider] - Forms: ED Department Discharge Additional Instructions: Follow up with primary intermediate medications Flexeril 10mg one every 8 hours as needed Prednisone 20mg one daily for 5 days urgent follow up if incontinent of urine or stool,
== END 2017-12-15 22:41 | disposition home or self-care (01) ==
LOC: DL.ED 21:24
DX: M54.42 Lumbago with sciatica, left side (principal); G89.29 Other chronic pain; K21.9 Gastro-esophageal reflux disease without esophagitis; F17.210 Nicotine dependence, cigarettes, uncomplicated; Z79.899 Other long term (current) drug therapy
CPT/HCPCS: 99283; A9270

== ENCOUNTER 2018-01-15 20:42 | Emergency (ER) | payer OTHER ==
[2018-01-15 21:07] VITALS: BP 140/83
[2018-01-15] MEDS ORDERED: Butorphanol 2 MG/ML SDV IM ONE (21:38)
[2018-01-15] MEDS ORDERED: Promethazine 25 MG/ML SDV IM ONE (21:38)
--- NOTE | 2018-01-15 21:44 | EDM.PDOC ---
ED HPI GENERAL MEDICAL PROBLEM - General Chief Complaint: Back Pain or Injury Stated Complaint: BACK PAIN [id number] Time Seen by Provider: 01/15/18 21:39 Source of Information: Reports: Patient History Limitations: Reports: No Limitations - History of Present Illness INITIAL COMMENTS - FREE TEXT/NARRATIVE: c/o exac LBP. present episode past 4 days occurring after MRI @ [facility] which showed multi level loss of disk height and herniation L4-5 with prior lizzy discetomy & spinal stenosis. Lower Back Pain Score (Numeric/FACES): 8 - Related Data Allergies Allergy/AdvReac Type Severity Reaction Status Date / Time No Known Allergies Allergy Verified 01/15/18 21:26 Home Meds: Home Meds oxyCODONE HCl/Acetaminophen [Endocet 10-325 mg Tablet] 1 each PO BID 06/15/17 [ History] Albuterol [IJP: Albuterol] 1 appful INH Q4HR PRN 11/09/17 [History] Amoxicillin/Potassium Clav [Amox Tr-K Clv 500-125 mg Tab] 1 each PO BID [History] Montelukast [Singulair] 10 mg PO DAILY 11/29/17 [History] Past Medical History - Past Health History Medical/Surgical History: Denies Medical/Surgical History HEENT History: Reports: None Cardiovascular History: Reports: None Respiratory History: Reports: Asthma Gastrointestinal History: Reports: GERD, Hiatal Hernia Genitourinary History: Reports: None Musculoskeletal History: Reports: Back Pain, Chronic, Other (See Below) Other Musculoskeletal History: left knee injury in 2016. buldging disc. L4-5. Back surgery in 2017 Neurological History: Reports: Other (See Below) Other Neuro History: bulging L4 & L5 discs Psychiatric History: Reports: None Endocrine/Metabolic History: Reports: None Hematologic History: Reports: None Immunologic History: Reports: None Oncologic (Cancer) History: Reports: None Dermatologic History: Reports: None - Infectious Disease History Infectious Disease History: Reports: Chicken Pox - Past Surgical History Head Surgeries/Procedures: Reports: None Social & Family History - Family History : Reports: Diabetic Nephropathy Other Family History: mother Musculoskeletal: Reports: Arthritis Other Musculoskeletal Family History: mother Oncologic: Reports: Brain, Lung Other Oncologic Family History: father - Tobacco Use Smoking Status *Q: Current Every Day Smoker Years of Tobacco use: 15 Packs/Tins Daily: 20 Used Tobacco, but Quit: No Second Hand Smoke Exposure: Yes - Caffeine Use Caffeine Use: Reports: Coffee, Soda - Alcohol Use Days Per Week of Alcohol Use: 0 Number of Drinks Per Day: 0 Total Drinks Per Week: 0 - Recreational Drug Use Recreational Drug Use: No - Living Situation & Occupation Living situation: Reports: with Family Occupation: Employed ED ROS GENERAL - Review of Systems Review Of Systems: ROS reveals no pertinent complaints other than HPI. ED EXAM,LOWER BACK PAIN/INJURY - Physical Exam Exam: See Below Exam Limited By: No Limitations General Appearance: Alert, WD/WN, Mild Distress, Other (pain) Ears: Hearing Grossly Normal Throat/Mouth: Normal Voice, No Airway Compromise Head: Atraumatic Neck: Non-Tender, Full Range of Motion Respiratory/Chest: No Respiratory Distress Cardiovascular: Regular Rate, Rhythm GI/Abdominal: Soft, Non-Tender Back Exam: Decreased Range of Motion, Paraspinal Tenderness, Other (L3-4-5-S1 with radiculopathy, gait limited to pain) Neurological: Alert, No Motor/Sensory Deficits, Oriented x 3 Psychiatric: Tearful Skin Exam: Warm, Dry, Normal Color Lymphatic: No Adenopathy Course - Vital Signs Last Recorded V/S: Last Vital Signs Temp 36.8 C 01/15/18 20:59 Pulse 102 H 01/15/18 20:59 Resp 18 01/15/18 20:59 BP 140/83 01/15/18 20:59 Pulse Ox 100 01/15/18 20:59 - Orders/Labs/Meds Orders: Active Orders 24 hr Category Date Time Status Butorphanol [Stadol] Med 01/15/18 21:38 Once 2 mg IM ONETIME ONE Promethazine [Phenergan] Med 01/15/18 21:38 Once 25 mg IM ONETIME ONE Medication Orders Butorphanol Tartrate (Stadol) 2 mg IM ONETIME ONE Stop: 01/15/18 21:39 Promethazine HCl (Phenergan) 25 mg IM ONETIME ONE Stop: 01/15/18 21:39 Meds: Medications Generic Name Dose Route Start Last Admin Trade Name Freq PRN Reason Stop Dose Admin Butorphanol Tartrate 2 mg 01/15/18 21:38 Stadol IM 01/15/18 21:39 ONETIME ONE Promethazine HCl 25 mg 01/15/18 21:38 Phenergan IM 01/15/18 21:39 ONETIME ONE Departure - Departure Time of Disposition: 21:43 Disposition: Home, Self-Care 01 Condition: Fair Clinical Impression: Lumbar disc herniation with radiculopathy - Discharge Information Instructions: Back Pain, Adult, [id number] Additional Instructions: 1) rest 2) avoid bending lifting straining 3) follow up with ortho - My Orders Last 24 Hours: My Active Orders 01/15/18 21:38 Butorphanol [Stadol] 2 mg IM ONETIME ONE Promethazine [Phenergan] 25 mg IM ONETIME ONE - Assessment/Plan Last 24 Hours: My Active Orders 01/15/18 21:38 Butorphanol [Stadol] 2 mg IM ONETIME ONE Promethazine [Phenergan] 25 mg IM ONETIME ONE
== END 2018-01-15 22:00 | disposition home or self-care (01) ==
LOC: DL.ED 20:42
DX: M51.16 Intervertebral disc disorders with radiculopathy, lumbar region (principal); J45.909 Unspecified asthma, uncomplicated; F17.210 Nicotine dependence, cigarettes, uncomplicated; K21.9 Gastro-esophageal reflux disease without esophagitis; Z79.899 Other long term (current) drug therapy; Z98.890 Other specified postprocedural states
CPT/HCPCS: 96372; 99283; J0595; J2550

== ENCOUNTER 2018-02-02 03:51 | Emergency (ER) | payer SELFPAY ==
[2018-02-02 04:05] VITALS: BP 138/84
[2018-02-02] MEDS ORDERED: HYDROmorphone 0.5 MG/0.5 ML Syringe IM ONE (04:14)
[2018-02-02] MEDS ORDERED: methylPREDNISolone Sodium Succinate 125 MG/2 ML SDV IM ONE (04:14)
--- NOTE | 2018-02-02 04:14 | EDM.PDOC ---
ED HPI GENERAL MEDICAL PROBLEM - General Chief Complaint: Back Pain or Injury Stated Complaint: LEG AND BACK PAIN [id number] Time Seen by Provider: 02/02/18 04:09 Source of Information: Reports: Patient, Family, RN, RN Notes Reviewed History Limitations: Reports: No Limitations - History of Present Illness INITIAL COMMENTS - FREE TEXT/NARRATIVE: Pt presents to the ER with c/o left lower back pain with shooting pains down the left leg. Pt states he had originally hurt his back a month ago and was having pain on the right lower back and down the right leg. He states he was to therapy the other day and felt it beginning to hurt then. He states he did not go to therapy yesterday because he was having too much pain. Patient states he takes oxycontin. He last took one about 2300. He was able to sleep until about 3 :00am when the pain was unbearable and woke him up so he came to the ER. 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) Left Lower Back Pain Score (Numeric/FACES): 7 - Related Data Allergies Allergy/AdvReac Type Severity Reaction Status Date / Time No Known Allergies Allergy Verified 02/02/18 04:04 Home Meds: Home Meds oxyCODONE HCl/Acetaminophen [Endocet 10-325 mg Tablet] 1 each PO BID 06/15/17 [ History] Albuterol [IJP: Albuterol] 1 appful INH Q4HR PRN 11/09/17 [History] Amoxicillin/Potassium Clav [Amox Tr-K Clv 500-125 mg Tab] 1 each PO BID [History] Montelukast [Singulair] 10 mg PO DAILY 11/29/17 [History] Past Medical History - Past Health History Medical/Surgical History: Denies Medical/Surgical History HEENT History: Reports: None Cardiovascular History: Reports: None Respiratory History: Reports: Asthma Gastrointestinal History: Reports: GERD, Hiatal Hernia Genitourinary History: Reports: None Musculoskeletal History: Reports: Back Pain, Chronic, Other (See Below) Other Musculoskeletal History: left knee injury in 2016. buldging disc. L4-5. Back surgery in 2017 Neurological History: Reports: Other (See Below) Other Neuro History: bulging L4 & L5 discs Psychiatric History: Reports: None Endocrine/Metabolic History: Reports: None Hematologic History: Reports: None Immunologic History: Reports: None Oncologic (Cancer) History: Reports: None Dermatologic History: Reports: None - Infectious Disease History Infectious Disease History: Reports: Chicken Pox - Past Surgical History Head Surgeries/Procedures: Reports: None Social & Family History - Family History : Reports: Diabetic Nephropathy Other Family History: mother Musculoskeletal: Reports: Arthritis Other Musculoskeletal Family History: mother Oncologic: Reports: Brain, Lung Other Oncologic Family History: father - Tobacco Use Smoking Status *Q: Current Every Day Smoker Years of Tobacco use: 16 Packs/Tins Daily: 20 Used Tobacco, but Quit: No Second Hand Smoke Exposure: Yes - Caffeine Use Caffeine Use: Reports: Coffee, Soda - Alcohol Use Days Per Week of Alcohol Use: 0 Number of Drinks Per Day: 0 Total Drinks Per Week: 0 - Recreational Drug Use Recreational Drug Use: No - Living Situation & Occupation Living situation: Reports: with Family Occupation: Employed ED ROS GENERAL - Review of Systems Review Of Systems: ROS reveals no pertinent complaints other than HPI. ED EXAM,LOWER BACK PAIN/INJURY - Physical Exam Exam: See Below Exam Limited By: No Limitations General Appearance: Alert, WD/WN, Moderate Distress Eye Exam: Bilateral Eye: EOMI, Normal Inspection Ears: Normal External Exam, Hearing Grossly Normal Nose: Normal Inspection Throat/Mouth: Normal Inspection, Normal Voice, No Airway Compromise Head: Atraumatic, Normocephalic Neck: Normal Inspection Respiratory/Chest: No Respiratory Distress, Lungs Clear, Normal Breath Sounds, No Accessory Muscle Use, Chest Non-Tender Cardiovascular: Normal Peripheral Pulses, Regular Rate, Rhythm, No Edema, No Gallop, No JVD GI/Abdominal: Normal Bowel Sounds (Male) Exam: Deferred Rectal (Males) Exam: Deferred Back Exam: Normal Inspection, Decreased Range of Motion, Muscle Spasm (left), Paraspinal Tenderness Extremities: Normal Inspection, Limited Range of Motion Neurological: Alert, Normal Mood/Affect, Normal Plantar Flexion, Normal Reflexes , No Motor/Sensory Deficits, Oriented x 3 Psychiatric: Normal Affect, Normal Mood Skin Exam: Warm, Dry, Intact, Normal Color, No Rash Lymphatic: No Adenopathy Course - Vital Signs Last Recorded V/S: Last Vital Signs Temp 97.8 F 02/02/18 03:57 Pulse 87 02/02/18 03:57 Resp 18 02/02/18 03:57 BP 138/84 02/02/18 03:57 Pulse Ox 96 02/02/18 03:57 - Orders/Labs/Meds Meds: Medications Discontinued Medications Generic Name Dose Route Start Last Admin Trade Name Gary PRN Reason Stop Dose Admin Hydromorphone HCl 1 mg 02/02/18 04:14 02/02/18 04:24 Dilaudid IM 02/02/18 04:15 1 mg ONETIME ONE Administration Methylprednisolone Sodium Succinate 125 mg 02/02/18 04:14 02/02/18 04:24 Solu-Medrol IM 02/02/18 04:15 125 mg ONETIME ONE Administration Departure - Departure Time of Disposition: 04:33 Disposition: Home, Self-Care 01 Condition: Fair Clinical Impression: Lumbar back pain with radiculopathy affecting left lower extremity - Discharge Information Instructions: Back Injury Prevention, [id number], Lumbosacral Radiculopathy Forms: ED Department Discharge Additional Instructions: Continue home medications as prescribed Follow up with your primary care facility
== END 2018-02-02 04:48 | disposition home or self-care (01) ==
LOC: DL.ED 03:51
DX: M54.16 Radiculopathy, lumbar region (principal); F17.210 Nicotine dependence, cigarettes, uncomplicated; Z79.899 Other long term (current) drug therapy
CPT/HCPCS: 96372; 99283; J1170; J2930

== ENCOUNTER 2018-03-18 18:37 | Emergency (ER) | payer MEDICAID, OTHER ==
[2018-03-18 20:55] VITALS: BP 140/85
--- NOTE | 2018-03-18 20:57 | EDM.PDOC ---
ED HPI GENERAL MEDICAL PROBLEM - General Chief Complaint: Upper Extremity Injury/Pain Stated Complaint: WRIST INJURY. [phone] Time Seen by Provider: 03/18/18 19:15 Source of Information: Reports: Patient History Limitations: Reports: No Limitations - History of Present Illness INITIAL COMMENTS - FREE TEXT/NARRATIVE: C/O pain to right wrist after falling and catching self on outstretched hand. Increased pain with movement, noted some swelling. Right Wrist Pain Score (Numeric/FACES): 7 - Related Data Allergies Allergy/AdvReac Type Severity Reaction Status Date / Time No Known Allergies Allergy Verified 03/18/18 19:16 Home Meds: Home Meds oxyCODONE HCl/Acetaminophen [Endocet 10-325 mg Tablet] 1 each PO BID 06/15/17 [ History] Past Medical History - Past Health History Medical/Surgical History: Denies Medical/Surgical History HEENT History: Reports: None Cardiovascular History: Reports: None Respiratory History: Reports: Asthma Gastrointestinal History: Reports: GERD, Hiatal Hernia Genitourinary History: Reports: None Musculoskeletal History: Reports: Back Pain, Chronic, Other (See Below) Other Musculoskeletal History: left knee injury in 2016. buldging disc. L4-5. Back surgery in 2017 Neurological History: Reports: Other (See Below) Other Neuro History: bulging L4 & L5 discs Psychiatric History: Reports: None Endocrine/Metabolic History: Reports: None Hematologic History: Reports: None Immunologic History: Reports: None Oncologic (Cancer) History: Reports: None Dermatologic History: Reports: None - Infectious Disease History Infectious Disease History: Reports: Chicken Pox - Past Surgical History Head Surgeries/Procedures: Reports: None Social & Family History - Family History : Reports: Diabetic Nephropathy Other Family History: mother Musculoskeletal: Reports: Arthritis Other Musculoskeletal Family History: mother Oncologic: Reports: Brain, Lung Other Oncologic Family History: father - Tobacco Use Smoking Status *Q: Current Every Day Smoker Years of Tobacco use: 16 Packs/Tins Daily: 0.5 Second Hand Smoke Exposure: Yes - Caffeine Use Caffeine Use: Reports: Coffee, Soda - Recreational Drug Use Recreational Drug Use: No - Living Situation & Occupation Living situation: Reports: with Family Occupation: Employed Review of Systems - Review of Systems Review Of Systems: ROS reveals no pertinent complaints other than HPI. ED EXAM, GENERAL - Physical Exam Exam: See Below Exam Limited By: No Limitations General Appearance: Alert, No Apparent Distress Eye Exam: Bilateral Eye: EOMI Ears: Normal External Exam Throat/Mouth: Normal Voice Neck: Full Range of Motion Respiratory/Chest: No Respiratory Distress Cardiovascular: Normal Peripheral Pulses, Regular Rate, Rhythm Extremities: Joint Swelling (minimal), Limited Range of Motion (limited extension, ) Neurological: Alert, Oriented Psychiatric: Normal Affect, Normal Mood Course - Vital Signs Last Recorded V/S: Last Vital Signs Temp 97.2 F 03/18/18 20:54 Pulse 106 H 03/18/18 20:54 Resp 16 03/18/18 20:54 BP 140/85 03/18/18 20:54 Pulse Ox 94 L 03/18/18 20:54 - Radiology Interpretation Free Text/Narrative:: right wrist xray negative for fracture Departure - Departure Time of Disposition: 20:56 Disposition: Home, Self-Care 01 Condition: Good Clinical Impression: Sprain of right wrist Qualifiers: Encounter type: initial encounter Qualified Code(s): S63.501A - Unspecified sprain of right wrist, initial encounter - Discharge Information Instructions: Wrist Sprain, Adult Referrals: Krishan Carrillo MD [Physician] - Forms: ED Department Discharge Additional Instructions: rest ice elevate satish wrap for comfort tylenolo or ibuprofen for discomfort
== END 2018-03-18 21:00 | disposition home or self-care (01) ==
LOC: DL.ED 18:37
DX: S63.501A Unspecified sprain of right wrist, initial encounter (principal); F17.210 Nicotine dependence, cigarettes, uncomplicated; W19.XXXA Unspecified fall, initial encounter
CPT/HCPCS: 73110-RT; 99283

== ENCOUNTER 2018-06-13 01:08 | Emergency (ER) | payer MEDICAID ==
[2018-06-13] MEDS ORDERED: Codeine/Promethazine 10-6.25 MG/5 ML Syrup 5 ML UD Cup PO ONE (01:09)
[2018-06-13] MEDS ORDERED: Albuterol/Ipratropium 3.0-0.5 MG/3 ML Neb Soln NEB ONE (01:18)
[2018-06-13] MEDS ORDERED: methylPREDNISolone Sodium Succinate 125 MG/2 ML SDV IVPUSH ONE (01:18)
[2018-06-13] MEDS ORDERED: Sodium Chloride 0.9% 1,000 ML IV ONE (01:18)
--- NOTE | 2018-06-13 01:22 | EDM.PDOC ---
ED HPI GENERAL MEDICAL PROBLEM - General Chief Complaint: Respiratory Problem Stated Complaint: DIFFICULTY BREATHING [id number] Time Seen by Provider: 06/13/18 01:21 Source of Information: Reports: Patient History Limitations: Reports: No Limitations - History of Present Illness INITIAL COMMENTS - FREE TEXT/NARRATIVE: few days h/o cough with F/C Chest Pain Score (Numeric/FACES): 9 - Related Data Allergies Allergy/AdvReac Type Severity Reaction Status Date / Time No Known Allergies Allergy Verified 06/03/18 07:55 Home Meds: Home Meds oxyCODONE HCl/Acetaminophen [Endocet 10-325 mg Tablet] 1 each PO TID 06/15/17 [ History] Ibuprofen 600 mg PO ASDIRECTED PRN 06/03/18 [History] Ranitidine HCl [Zantac 75] 75 mg PO ASDIRECTED PRN 06/03/18 [History] Clindamycin HCl 300 mg PO QID 06/13/18 [History] Past Medical History - Past Health History Medical/Surgical History: Denies Medical/Surgical History HEENT History: Reports: None Cardiovascular History: Reports: None Respiratory History: Reports: Asthma Gastrointestinal History: Reports: GERD, Hiatal Hernia Genitourinary History: Reports: None Musculoskeletal History: Reports: Back Pain, Chronic, Other (See Below) Other Musculoskeletal History: left knee injury in 2016. buldging disc. L4-5. Back surgery in 2017 Neurological History: Reports: Other (See Below) Other Neuro History: bulging L4 & L5 discs Psychiatric History: Reports: None Endocrine/Metabolic History: Reports: None Hematologic History: Reports: None Immunologic History: Reports: None Oncologic (Cancer) History: Reports: None Dermatologic History: Reports: None - Infectious Disease History Infectious Disease History: Reports: Chicken Pox - Past Surgical History Head Surgeries/Procedures: Reports: None Social & Family History - Family History : Reports: Diabetic Nephropathy Other Family History: mother Musculoskeletal: Reports: Arthritis Other Musculoskeletal Family History: mother Oncologic: Reports: Brain, Lung Other Oncologic Family History: father - Caffeine Use Caffeine Use: Reports: Coffee, Soda - Living Situation & Occupation Living situation: Reports: with Family Occupation: Employed ED ROS GENERAL - Review of Systems Review Of Systems: ROS reveals no pertinent complaints other than HPI. ED EXAM, GENERAL - Physical Exam Exam: See Below Exam Limited By: No Limitations General Appearance: Alert, WD/WN, Mild Distress, Other (cough spasms) Ears: Hearing Grossly Normal Throat/Mouth: Normal Voice, No Airway Compromise Head: Atraumatic Neck: Non-Tender, Full Range of Motion Respiratory/Chest: No Respiratory Distress, No Accessory Muscle Use, Decreased Breath Sounds, Rhonchi, Wheezing Cardiovascular: Regular Rate, Rhythm GI/Abdominal: Soft, Non-Tender Neurological: Alert, Oriented, Normal Cognition, Normal Gait, No Motor/Sensory Deficits Psychiatric: Flat Affect Skin Exam: Warm, Dry, Normal Color Lymphatic: No Adenopathy Course - Vital Signs Last Recorded V/S: Last Vital Signs Temp 36.6 C 06/13/18 01:14 Pulse 96 06/13/18 01:14 Resp 20 06/13/18 01:14 BP 137/77 06/13/18 01:14 Pulse Ox 89 L 06/13/18 01:14 - Orders/Labs/Meds Orders: Active Orders 24 hr Category Date Time Status RT Aerosol Therapy [RC] ASDIRECTED Care 06/13/18 01:19 Active RT Aerosol Therapy [RC] ASDIRECTED Care 06/13/18 02:09 Active CULTURE BLOOD [BC] Stat Lab 06/13/18 01:24 Received Labs: Laboratory Tests 06/13/18 06/13/18 06/13/18 Range/Units 01:24 01:24 01:24 WBC 11.6 H (5.0-10.0) 10^3/uL RBC 5.12 (4.6-6.2) 10^6/uL Hgb 15.8 (14.0-18.0) g/dL Hct 46.3 (40.0-54.0) % MCV 90.4 (80-100) fL MCH 30.9 (27.0-34.0) pg MCHC 34.1 (33.0-35.0) g/dL Plt Count 198 (150-450) 10^3/uL Neut % (Auto) 52.5 (42.2-75.2) % Lymph % (Auto) 37.2 (20.5-50.1) % Kimble % (Auto) 7.5 (2-8) % Eos % (Auto) 2.5 (1.0-3.0) % Baso % (Auto) 0.3 (0.0-1.0) % Sodium 136 (135-145) mmol/L Potassium 3.8 (3.6-5.0) mmol/L Chloride 100 L (101-111) mmol/L Carbon Dioxide 27.0 (21.0-31.0) mmol/L Anion Gap 12.8 BUN 10 (7-18) mg/dL Creatinine 0.6 (0.6-1.3) mg/dL Est Cr Clr Drug Dosing 205.50 mL/min Estimated GFR (MDRD) > 60 BUN/Creatinine Ratio 16.66 Glucose 298 H (74-105) mg/dL Lactic Acid 1.3 (0.5-2.2) mmol/L Calcium 9.1 (8.4-10.2) mg/dl Total Bilirubin 0.6 (0.2-1.0) mg/dL AST 39 (10-42) IU/L ALT 56 (10-60) IU/L Alkaline Phosphatase 63 (42-121) IU/L Total Protein 7.6 (6.7-8.2) g/dl Albumin 4.1 (3.2-5.5) g/dl Globulin 3.5 Albumin/Globulin Ratio 1.17 Meds: Medications Discontinued Medications Generic Name Dose Route Start Last Admin Trade Name Freq PRN Reason Stop Dose Admin Albuterol 2.5 mg 06/13/18 02:09 06/13/18 02:13 Proventil Neb Soln NEB 06/13/18 02:10 2.5 mg ONETIME ONE Administration Albuterol/Ipratropium 3 ml 06/13/18 01:18 06/13/18 01:28 Duoneb 3.0-0.5 Mg/3 Ml NEB 06/13/18 01:19 3 ml ONETIME ONE Administration Sodium Chloride 1,000 mls @ 999 mls/hr 06/13/18 01:18 06/13/18 01:25 Normal Saline IV 06/13/18 02:18 999 mls/hr .BOLUS ONE Administration Methylprednisolone Sodium Succinate 125 mg 06/13/18 01:18 06/13/18 01:30 Solu-Medrol IVPUSH 06/13/18 01:19 125 mg ONETIME ONE Administration Promethazine HCl/Codeine Confirm 06/13/18 02:19 Phenergan With Codeine Administered 06/13/18 02:20 Dose 5 ml .ROUTE .STK-MED ONE - Re-Assessments/Exams Free Text/Narrative Re-Assessment/Exam: 06/13/18 02:23 results discussed with pt who is better s/p duoneb + solumedrol Departure - Departure Time of Disposition: 02:23 Disposition: Home, Self-Care 01 Condition: Good Clinical Impression: Bronchospasm with bronchitis, acute - Discharge Information Instructions: Acute Bronchitis, Adult, [id number] Forms: ED Department Discharge Additional Instructions: 1) take nebs 2) don't sleep flat at night 3) follow up at clinic rx given; medrol dospak albuterol 2.5mg solution qid prn phenergan codeine syrup qid prn - My Orders Last 24 Hours: My Active Orders 06/13/18 01:19 RT Aerosol Therapy [RC] ASDIRECTED 06/13/18 01:24 CULTURE BLOOD [BC] Stat 06/13/18 02:09 RT Aerosol Therapy [RC] ASDIRECTED - Assessment/Plan Last 24 Hours: My Active Orders 06/13/18 01:19 RT Aerosol Therapy [RC] ASDIRECTED 06/13/18 01:24 CULTURE BLOOD [BC] Stat 06/13/18 02:09 RT Aerosol Therapy [RC] ASDIRECTED
[2018-06-13 01:27] VITALS: BP 137/77
[2018-06-13 01:50] LABS: ANION GAP 12.8; CHLORIDE,CL 100 mmol/L (101-111); SODIUM,NA 136 mmol/L (135-145)
[2018-06-13] MEDS ORDERED: Albuterol 0.083% 2.5 MG/3 ML Neb Soln NEB ONE (02:09)
[2018-06-13] MEDS ORDERED: Codeine/Promethazine 10-6.25 MG/5 ML Syrup 5 ML UD Cup ONE (02:19)
== END 2018-06-13 02:33 | disposition home or self-care (01) ==
LOC: DL.ED 01:08
DX: J20.9 Acute bronchitis, unspecified (principal); J45.909 Unspecified asthma, uncomplicated; Z79.899 Other long term (current) drug therapy
CPT/HCPCS: 36415; 71045; 80053; 83605; 85025; 87040; 94640; 96361; 96374; 99285; J2930; J7030; J7620; A9270-GY

== ENCOUNTER 2018-11-28 01:07 | Emergency (ER) | payer MEDICAID, OTHER ==
[2018-11-28 01:16] VITALS: BP 147/76
--- NOTE | 2018-11-28 01:29 | EDM.PDOC ---
ED HPI GENERAL MEDICAL PROBLEM - General Chief Complaint: General Stated Complaint: SICKNESS Time Seen by Provider: 11/28/18 01:20 Source of Information: Reports: Patient History Limitations: Reports: No Limitations - History of Present Illness INITIAL COMMENTS - FREE TEXT/NARRATIVE: This 33 yo male patient reports to the ED with sinus congestion, a cough and not feeling well. The patient reports his symptoms started on Wednesday. The patient has been taking OTC medications with little to no symptom relief. The patient last took Tylenol yesterday afternoon at 1600. 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 - Related Data Allergies Allergy/AdvReac Type Severity Reaction Status Date / Time No Known Allergies Allergy Verified 11/28/18 01:18 Home Meds: Home Meds oxyCODONE HCl/Acetaminophen [Endocet 10-325 mg Tablet] 1 each PO TID 06/15/17 [ History] Ibuprofen 600 mg PO ASDIRECTED PRN 06/03/18 [History] Ranitidine HCl [Zantac 75] 75 mg PO ASDIRECTED PRN 06/03/18 [History] Past Medical History - Past Health History Medical/Surgical History: Denies Medical/Surgical History HEENT History: Reports: None Cardiovascular History: Reports: None Respiratory History: Reports: Asthma Gastrointestinal History: Reports: GERD, Hiatal Hernia Genitourinary History: Reports: None Musculoskeletal History: Reports: Back Pain, Chronic, Other (See Below) Other Musculoskeletal History: left knee injury in 2016. buldging disc. L4-5. Back surgery in 2017 Neurological History: Reports: Other (See Below) Other Neuro History: bulging L4 & L5 discs Psychiatric History: Reports: None Endocrine/Metabolic History: Reports: None Hematologic History: Reports: None Immunologic History: Reports: None Oncologic (Cancer) History: Reports: None Dermatologic History: Reports: None - Infectious Disease History Infectious Disease History: Reports: Chicken Pox - Past Surgical History Head Surgeries/Procedures: Reports: None Social & Family History - Family History Family Medical History: Noncontributory : Reports: Diabetic Nephropathy Other Family History: mother Musculoskeletal: Reports: Arthritis Other Musculoskeletal Family History: mother Oncologic: Reports: Brain, Lung Other Oncologic Family History: father - Tobacco Use Smoking Status *Q: Current Every Day Smoker Years of Tobacco use: 15 Packs/Tins Daily: 10 - Caffeine Use Caffeine Use: Reports: Coffee, Tea - Recreational Drug Use Recreational Drug Use: No - Living Situation & Occupation Living situation: Reports: with Family Occupation: Employed ED ROS GENERAL - Review of Systems Review Of Systems: ROS reveals no pertinent complaints other than HPI. ED EXAM, GENERAL - Physical Exam Exam: See Below Exam Limited By: No Limitations General Appearance: Alert, WD/WN, Moderate Distress Eye Exam: Bilateral Eye: EOMI, Normal Inspection, PERRL Ears: Normal External Exam, Normal Canal, Hearing Grossly Normal, Normal TMs Nose: Normal Inspection, Normal Mucosa Throat/Mouth: Normal Lips, Normal Teeth, Normal Oropharynx, Normal Voice, No Airway Compromise, Other (posterior pharynx erythema) Head: Atraumatic, Normocephalic Neck: Normal Inspection, Supple, Non-Tender, Full Range of Motion Respiratory/Chest: No Respiratory Distress, Chest Non-Tender, Rhonchi (faint diffuse) Cardiovascular: Normal Peripheral Pulses, Regular Rate, Rhythm, No Edema, No Gallop, No JVD, No Murmur, No Rub GI/Abdominal: Normal Bowel Sounds, Soft, Non-Tender, No Organomegaly, No Distention, No Abnormal Bruit, No Mass (Male) Exam: Deferred Rectal (Males) Exam: Deferred Back Exam: Normal Inspection, Full Range of Motion, NT Extremities: Normal Inspection, Normal Range of Motion, Non-Tender, Normal Capillary Refill, No Pedal Edema Neurological: Alert, Oriented, CN II-XII Intact, Normal Cognition, Normal Gait, Normal Reflexes, No Motor/Sensory Deficits Psychiatric: Normal Affect, Normal Mood Skin Exam: Warm, Dry, Intact, Normal Color, No Rash Lymphatic: No Adenopathy Course - Vital Signs Last Recorded V/S: Last Vital Signs Temp 35.6 C 11/28/18 01:10 Pulse 81 11/28/18 01:10 Resp 19 11/28/18 01:10 BP 147/76 H 11/28/18 01:10 Pulse Ox 100 11/28/18 01:10 - Orders/Labs/Meds Orders: Active Orders 24 hr Category Date Time Status Chest 2V [CR] Urgent Exams 02/04/19 01:17 Ordered CULTURE STREP A CONFIRMATION [RM] Stat Lab 11/28/18 01:25 Results STREP SCRN A RAPID W CULT CONF [RM] Stat Lab 11/28/18 01:17 Ordered Labs: Laboratory Tests 11/28/18 11/28/18 11/28/18 Range/Units 01:25 01:25 01:41 WBC 11.0 H (5.0-10.0) 10^3/uL RBC 5.42 (4.6-6.2) 10^6/uL Hgb 16.7 (14.0-18.0) g/dL Hct 47.8 (40.0-54.0) % MCV 88.2 (80-100) fL MCH 30.8 (27.0-34.0) pg MCHC 34.9 (33.0-35.0) g/dL Plt Count 215 (150-450) 10^3/uL Neut % (Auto) 45.2 (42.2-75.2) % Lymph % (Auto) 43.9 (20.5-50.1) % [place] % (Auto) 7.7 (2-8) % Eos % (Auto) 2.9 (1.0-3.0) % Baso % (Auto) 0.3 (0.0-1.0) % Sodium (135-145) mmol/L Potassium (3.6-5.0) mmol/L Chloride (101-111) mmol/L Carbon Dioxide (21.0-31.0) mmol/L Anion Gap BUN (7-18) mg/dL Creatinine (0.6-1.3) mg/dL Est Cr Clr Drug Dosing mL/min Estimated GFR (MDRD) BUN/Creatinine Ratio Glucose (74-105) mg/dL Calcium (8.4-10.2) mg/dl Total Bilirubin (0.2-1.0) mg/dL AST (10-42) IU/L ALT (10-60) IU/L Alkaline Phosphatase (42-121) IU/L Total Protein (6.7-8.2) g/dl Albumin (3.2-5.5) g/dl Globulin Albumin/Globulin Ratio Urine Color Yellow (YELLOW) Urine Appearance Slightly cloudy (CLEAR) Urine pH 6.0 (5.0-9.0) Ur Specific [place] 1.025 (1.005-1.030) Urine Protein 30 H (NEGATIVE) Urine Glucose (UA) 100 H (NEGATIVE) Urine Ketones Negative (NEGATIVE) Urine Occult Blood Negative (NEGATIVE) Urine Nitrite Negative (NEGATIVE) Urine Bilirubin Negative (NEGATIVE) Urine Urobilinogen 0.2 (0.2-1.0) mg/dL Ur Leukocyte Esterase Negative (NEGATIVE) Urine RBC 0-5 /HPF Urine WBC Not seen (0-5/HPF) /HPF Ur Epithelial Cells Rare /HPF Urine Bacteria Rare (0-FEW/HPF) /HPF Urine Mucus Few H /LPF Urine Opiates Screen Positive H (NEGATIVE) Ur Oxycodone Screen Positive H (NEGATIVE) Urine Methadone Screen Negative (NEGATIVE) Ur Barbiturates Screen Negative (NEGATIVE) U Tricyclic Antidepress Negative (NEGATIVE) Ur Phencyclidine Scrn Negative (NEGATIVE) Ur Amphetamine Screen Negative (NEGATIVE) U Methamphetamines Scrn Negative (NEGATIVE) Urine MDMA Screen Negative (NEGATIVE) U Benzodiazepines Scrn Negative (NEGATIVE) Urine Cocaine Screen Negative (NEGATIVE) U Marijuana (THC) Screen Negative (NEGATIVE) 11/28/18 Range/Units 01:41 WBC (5.0-10.0) 10^3/uL RBC (4.6-6.2) 10^6/uL Hgb (14.0-18.0) g/dL Hct (40.0-54.0) % MCV (80-100) fL MCH (27.0-34.0) pg MCHC (33.0-35.0) g/dL Plt Count (150-450) 10^3/uL Neut % (Auto) (42.2-75.2) % Lymph % (Auto) (20.5-50.1) % [place] % (Auto) (2-8) % Eos % (Auto) (1.0-3.0) % Baso % (Auto) (0.0-1.0) % Sodium 136 (135-145) mmol/L Potassium 3.8 (3.6-5.0) mmol/L Chloride 101 (101-111) mmol/L Carbon Dioxide 25.0 (21.0-31.0) mmol/L Anion Gap 13.8 BUN 9 (7-18) mg/dL Creatinine 0.7 (0.6-1.3) mg/dL Est Cr Clr Drug Dosing 174.51 mL/min Estimated GFR (MDRD) > 60 BUN/Creatinine Ratio 12.85 Glucose 242 H (74-105) mg/dL Calcium 9.0 (8.4-10.2) mg/dl Total Bilirubin 0.6 (0.2-1.0) mg/dL AST 29 (10-42) IU/L ALT 33 (10-60) IU/L Alkaline Phosphatase 61 (42-121) IU/L Total Protein 7.5 (6.7-8.2) g/dl Albumin 4.2 (3.2-5.5) g/dl Globulin 3.3 Albumin/Globulin Ratio 1.27 Urine Color (YELLOW) Urine Appearance (CLEAR) Urine pH (5.0-9.0) Ur Specific [place] (1.005-1.030) Urine Protein (NEGATIVE) Urine Glucose (UA) (NEGATIVE) Urine Ketones (NEGATIVE) Urine Occult Blood (NEGATIVE) Urine Nitrite (NEGATIVE) Urine Bilirubin (NEGATIVE) Urine Urobilinogen (0.2-1.0) mg/dL Ur Leukocyte Esterase (NEGATIVE) Urine RBC /HPF Urine WBC (0-5/HPF) /HPF Ur Epithelial Cells /HPF Urine Bacteria (0-FEW/HPF) /HPF Urine Mucus /LPF Urine Opiates Screen (NEGATIVE) Ur Oxycodone Screen (NEGATIVE) Urine Methadone Screen (NEGATIVE) Ur Barbiturates Screen (NEGATIVE) U Tricyclic Antidepress (NEGATIVE) Ur Phencyclidine Scrn (NEGATIVE) Ur Amphetamine Screen (NEGATIVE) U Methamphetamines Scrn (NEGATIVE) Urine MDMA Screen (NEGATIVE) U Benzodiazepines Scrn (NEGATIVE) Urine Cocaine Screen (NEGATIVE) U Marijuana (THC) Screen (NEGATIVE) Meds: Medications Discontinued Medications Generic Name Dose Route Start Last Admin Trade Name Freq PRN Reason Stop Dose Admin Ceftriaxone Sodium 1 gm 11/28/18 02:04 Rocephin IM 11/28/18 02:05 ONETIME ONE Departure - Departure Time of Disposition: 02:06 Disposition: Home, Self-Care 01 Condition: Fair Clinical Impression: Bronchitis Sinusitis Qualifiers: Sinusitis location: maxillary Chronicity: acute Recurrence: non-recurrent Qualified Code(s): J01.00 - Acute maxillary sinusitis, unspecified - Discharge Information *PRESCRIPTION DRUG MONITORING PROGRAM REVIEWED*: Not Applicable *COPY OF PRESCRIPTION DRUG MONITORING REPORT IN PATIENT MARI: Not Applicable Instructions: Sinusitis, Adult, [id number], Upper Respiratory Infection, Adult, [id number] Forms: ED Department Discharge Care Plan Goals: The patient was advised of the examination, lab and x-ray results during the visit. The patient was given an injection of Rocephin while in the ED. The patient was discharged with a script for Azithromycin (250 mg) #6 to take 2 by mouth on day 1 and 1 by mouth on days 2-5. If the patient has any additional symptoms or concerns, the patient should either return to the emergency department or visit his primary care facility. - My Orders Last 24 Hours: My Active Orders 11/28/18 01:17 Chest 2V [CR] Urgent STREP SCRN A RAPID W CULT CONF [RM] Stat 11/28/18 01:25 CULTURE STREP A CONFIRMATION [RM] Stat - Assessment/Plan Last 24 Hours: My Active Orders 11/28/18 01:17 Chest 2V [CR] Urgent STREP SCRN A RAPID W CULT CONF [RM] Stat 11/28/18 01:25 CULTURE STREP A CONFIRMATION [RM] Stat
[2018-11-28 02:04] LABS: ANION GAP 13.8; CHLORIDE,CL 101 mmol/L (101-111); SODIUM,NA 136 mmol/L (135-145)
[2018-11-28] MEDS ORDERED: cefTRIAXone 1 GM Vial IM ONE (02:04)
== END 2018-11-28 02:25 | disposition home or self-care (01) ==
LOC: DL.ED 01:07
DX: J40 Bronchitis, not specified as acute or chronic (principal); J01.00 Acute maxillary sinusitis, unspecified; K21.9 Gastro-esophageal reflux disease without esophagitis; F17.210 Nicotine dependence, cigarettes, uncomplicated; Z79.52 Long term (current) use of systemic steroids
CPT/HCPCS: 36415; 71046; 80053; 80305-QW; 81001; 85025; 87081; 87430; 87804; 96372; 99284; J0696

== ENCOUNTER 2019-08-13 21:44 | Emergency (ER) | payer MEDICAID ==
[2019-08-13 21:53] VITALS: BP 149/60; PULSE 78
[2019-08-13] MEDS ORDERED: Butorphanol 2 MG/ML SDV IM ONE (22:07)
[2019-08-13] MEDS ORDERED: Promethazine 25 MG/ML SDV IM ONE (22:08)
--- NOTE | 2019-08-13 22:14 | EDM.PDOC ---
ED HPI GENERAL MEDICAL PROBLEM - General Chief Complaint: Lower Extremity Injury/Pain Stated Complaint: NEEDS LEFT LEG CHECK PAIN Time Seen by Provider: 08/13/19 22:09 Source of Information: Reports: Patient History Limitations: Reports: No Limitations - History of Present Illness INITIAL COMMENTS - FREE TEXT/NARRATIVE: c/o left sciatica. already had back surgery for right side. Left Leg Pain Score (Numeric/FACES): 9 - Related Data Allergies Allergy/AdvReac Type Severity Reaction Status Date / Time No Known Allergies Allergy Verified 08/13/19 21:48 Home Meds: Home Meds oxyCODONE HCl/Acetaminophen [Endocet 10-325 mg Tablet] 1 each PO TID 06/15/17 [ History] Ibuprofen 600 mg PO ASDIRECTED PRN 06/03/18 [History] Ranitidine HCl [Zantac 75] 75 mg PO ASDIRECTED PRN 06/03/18 [History] Past Medical History - Past Health History Medical/Surgical History: Denies Medical/Surgical History HEENT History: Reports: None Cardiovascular History: Reports: None Respiratory History: Reports: Asthma Gastrointestinal History: Reports: GERD, Hiatal Hernia Genitourinary History: Reports: None Musculoskeletal History: Reports: Back Pain, Chronic, Other (See Below) Other Musculoskeletal History: left knee injury in 2016. buldging disc. L4-5. Back surgery in 2017 Neurological History: Reports: Other (See Below) Other Neuro History: bulging L4 & L5 discs Psychiatric History: Reports: None Endocrine/Metabolic History: Reports: Diabetes, Type II Hematologic History: Reports: None Immunologic History: Reports: None Oncologic (Cancer) History: Reports: None Dermatologic History: Reports: None - Infectious Disease History Infectious Disease History: Reports: Chicken Pox - Past Surgical History Head Surgeries/Procedures: Reports: None Social & Family History - Family History Family Medical History: Noncontributory : Reports: Diabetic Nephropathy Other Family History: mother Musculoskeletal: Reports: Arthritis Other Musculoskeletal Family History: mother Oncologic: Reports: Brain, Lung Other Oncologic Family History: father - Tobacco Use Smoking Status *Q: Current Every Day Smoker Years of Tobacco use: 18 Packs/Tins Daily: 2 - Caffeine Use Caffeine Use: Reports: None - Recreational Drug Use Recreational Drug Use: No - Living Situation & Occupation Living situation: Reports: with Family Occupation: Employed Review of Systems - Review of Systems Review Of Systems: ROS reveals no pertinent complaints other than HPI. ED EXAM, GENERAL - Physical Exam Exam: See Below Exam Limited By: No Limitations General Appearance: Alert, WD/WN, Mild Distress, Other (pain) Eye Exam: Bilateral Eye: PERRL (pupils ER @ 4mm) Ears: Hearing Grossly Normal Throat/Mouth: Normal Voice, No Airway Compromise Head: Atraumatic Neck: Non-Tender, Full Range of Motion Respiratory/Chest: No Respiratory Distress Cardiovascular: Regular Rate, Rhythm GI/Abdominal: Soft, Non-Tender Back Exam: Muscle Spasm, Paraspinal Tenderness, Other (left sciatica) Neurological: Alert, Oriented, Normal Cognition, No Motor/Sensory Deficits Psychiatric: Tearful Skin Exam: Warm, Dry, Normal Color Lymphatic: No Adenopathy Course - Vital Signs Last Recorded V/S: Last Vital Signs Temp 36.9 C 08/13/19 21:51 Pulse 78 08/13/19 21:51 Resp 18 08/13/19 21:51 BP 149/60 H 08/13/19 21:51 Pulse Ox 96 08/13/19 21:51 - Orders/Labs/Meds Orders: Active Orders 24 hr Category Date Time Status Orphenadrine [Norflex] Med 08/13/19 22:15 Ordered 60 mg IM Q12H Medication Orders Orphenadrine Citrate (Norflex) 60 mg IM Q12H PRETTY Meds: Medications Generic Name Dose Route Start Last Admin Trade Name Freq PRN Reason Stop Dose Admin Orphenadrine Citrate 60 mg 08/13/19 22:15 Norflex IM Q12H PRETTY Discontinued Medications Generic Name Dose Route Start Last Admin Trade Name Freq PRN Reason Stop Dose Admin Butorphanol Tartrate 2 mg 08/13/19 22:07 Stadol IM 08/13/19 22:08 ONETIME ONE Promethazine HCl 25 mg 08/13/19 22:08 Phenergan IM 08/13/19 22:09 ONETIME ONE Departure - Departure Time of Disposition: 22:12 Disposition: Home, Self-Care 01 Condition: Good Clinical Impression: Lumbar back pain with radiculopathy affecting left lower extremity - Discharge Information Additional Instructions: 1) rest 2) avoid bending lifting straining 3) try ice or heat to sore areas 4) follow up at clinic - My Orders Last 24 Hours: My Active Orders 08/13/19 22:15 Orphenadrine [Norflex] 60 mg IM Q12H - Assessment/Plan Last 24 Hours: My Active Orders 08/13/19 22:15 Orphenadrine [Norflex] 60 mg IM Q12H
== END 2019-08-13 22:25 | disposition home or self-care (01) ==
LOC: DL.ED 21:44
DX: M54.16 Radiculopathy, lumbar region (principal); E11.9 Type 2 diabetes mellitus without complications; K21.9 Gastro-esophageal reflux disease without esophagitis; F17.210 Nicotine dependence, cigarettes, uncomplicated; Z79.899 Other long term (current) drug therapy
CPT/HCPCS: 96372; 99282; J0595; J2360; J2550

== ENCOUNTER 2019-08-15 21:20 | Emergency (ER) | payer MEDICAID ==
[2019-08-15 22:17] VITALS: BP 139/89; PULSE 83
--- NOTE | 2019-08-15 22:53 | EDM.PDOC ---
ED HPI GENERAL MEDICAL PROBLEM - General Chief Complaint: Lower Extremity Injury/Pain Stated Complaint: PAIN IN L LEG Time Seen by Provider: 08/15/19 22:32 - History of Present Illness INITIAL COMMENTS - FREE TEXT/NARRATIVE: 33 year old male who present to the Er with complaints of left leg sciatica. He states pain has been ongoing for the past one week and intermittently for many months. Pain is constant and a 10/10, sharp and radiating down his left leg. He had back surgery which he states failed. He is currently being on Oxycodone and Neurontin which he took prior to coming to the ER. He was seen in the ER two days ago and given Norflex which he reports it did not work. He states he has tried making an appointment to see his PCP and was told he is full. He denies any recent injury, fall or trauma. denies any saddle anesthesia. He is noted to walk in. 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 also Gabapentin 600 mg at 2044 Left Posterior Leg Pain Score (Numeric/FACES): 8 - Related Data Allergies Allergy/AdvReac Type Severity Reaction Status Date / Time No Known Allergies Allergy Verified 08/13/19 21:48 Home Meds: Home Meds oxyCODONE HCl/Acetaminophen [Endocet 10-325 mg Tablet] 1 each PO TID 06/15/17 [ History] Ibuprofen 600 mg PO ASDIRECTED PRN 06/03/18 [History] Ranitidine HCl [Zantac 75] 75 mg PO ASDIRECTED PRN 06/03/18 [History] Past Medical History - Past Health History Medical/Surgical History: Denies Medical/Surgical History HEENT History: Reports: None Cardiovascular History: Reports: None Respiratory History: Reports: Asthma Gastrointestinal History: Reports: GERD, Hiatal Hernia Genitourinary History: Reports: None Musculoskeletal History: Reports: Back Pain, Chronic, Other (See Below) Other Musculoskeletal History: left knee injury in 2016. buldging disc. L4-5. Back surgery in 2017 Neurological History: Reports: Other (See Below) Other Neuro History: bulging L4 & L5 discs. sciatic nerve pain Psychiatric History: Reports: None Endocrine/Metabolic History: Reports: Diabetes, Type II Hematologic History: Reports: None Immunologic History: Reports: None Oncologic (Cancer) History: Reports: None Dermatologic History: Reports: None - Infectious Disease History Infectious Disease History: Reports: Chicken Pox - Past Surgical History Head Surgeries/Procedures: Reports: None Neurological Surgical History: Reports: Lumbar Spine Social & Family History - Family History Family Medical History: Noncontributory : Reports: Diabetic Nephropathy Other Family History: mother Musculoskeletal: Reports: Arthritis Other Musculoskeletal Family History: mother Oncologic: Reports: Brain, Lung Other Oncologic Family History: father - Tobacco Use Smoking Status *Q: Current Every Day Smoker Years of Tobacco use: 18 Packs/Tins Daily: 1.5 Used Tobacco, but Quit: No Second Hand Smoke Exposure: Yes - Caffeine Use Caffeine Use: Reports: Coffee, Soda - Recreational Drug Use Recreational Drug Use: No - Living Situation & Occupation Living situation: Reports: with Family Occupation: Employed Review of Systems - Review of Systems Review Of Systems: ROS reveals no pertinent complaints other than HPI. ED EXAM, GENERAL - Physical Exam Exam: See Below Exam Limited By: No Limitations General Appearance: Alert, WD/WN, No Apparent Distress Peripheral Pulses: 4+: Posterior Tibial (L), Posterior Tibial (R), Dorsalis Pedis (L), Dorsalis Pedis (R) Back Exam: Paraspinal Tenderness Extremities: Normal Inspection, Non-Tender, No Pedal Edema, Normal Capillary Refill, Tommy's Sign, Limited Range of Motion (due to pain) Neurological: Alert, Oriented, CN II-XII Intact, Normal Cognition, Normal Gait, Normal Reflexes, No Motor/Sensory Deficits Psychiatric: Normal Affect, Normal Mood Skin Exam: Warm, Dry, Intact, Normal Color, No Rash Course - Vital Signs Last Recorded V/S: Last Vital Signs Temp 98.3 F 08/15/19 22:10 Pulse 83 08/15/19 22:10 Resp 20 08/15/19 22:10 BP 139/89 08/15/19 22:10 Pulse Ox 98 08/15/19 22:10 - Re-Assessments/Exams Free Text/Narrative Re-Assessment/Exam: 33 year old patient who presents with chronic left leg sciatic nerve pain requesting for xray. He states he wants something done. He was seen in the ER two days ago and given Norflex which he declined today. States his Neurontin and Oxycodone at home works for 45 minutes. He denies having any injury, trauma or fall recently. Discussed with patient the importance of following up in the clinic for proper imaging and referral. He verbalized understanding. Departure - Departure Time of Disposition: 22:53 Disposition: Home, Self-Care 01 Condition: Good Clinical Impression: Sciatica of left side, Lumbar back pain with radiculopathy affecting left lower extremity - Discharge Information *PRESCRIPTION DRUG MONITORING PROGRAM REVIEWED*: Not Applicable *COPY OF PRESCRIPTION DRUG MONITORING REPORT IN PATIENT MARI: Not Applicable Instructions: Sciatica, [id number] Forms: ED Department Discharge Additional Instructions: Encouraged patient to follow up with PCP for an MRI and possible referral to Neurosurgery. Continue home medications as prescribed. Apply ice/heat and rest. Patient verbalized understanding
== END 2019-08-15 23:27 | disposition home or self-care (01) ==
LOC: DL.ED 21:20
DX: M54.42 Lumbago with sciatica, left side (principal); J45.909 Unspecified asthma, uncomplicated; E11.9 Type 2 diabetes mellitus without complications; K21.9 Gastro-esophageal reflux disease without esophagitis; F17.210 Nicotine dependence, cigarettes, uncomplicated; Z79.899 Other long term (current) drug therapy
CPT/HCPCS: 99282

== ENCOUNTER 2019-08-17 18:08 | Emergency (ER) | payer MEDICAID ==
[2019-08-17] MEDS ORDERED: Butorphanol 2 MG/ML SDV IM ONE (18:52)
[2019-08-17] MEDS ORDERED: Promethazine 25 MG/ML SDV IM ONE (18:52)
[2019-08-17] MEDS ORDERED: methylPREDNISolone Sodium Succinate 125 MG/2 ML SDV IVPUSH ONE (18:52)
[2019-08-17] MEDS ORDERED: Butorphanol 2 MG/ML SDV IVPUSH ONE (18:53)
[2019-08-17] MEDS ORDERED: Metoclopramide 10 MG/2 ML SDV IVPUSH ONE (18:53)
--- NOTE | 2019-08-17 19:10 | EDM.PDOC ---
ED HPI GENERAL MEDICAL PROBLEM - General Chief Complaint: Back Pain or Injury Stated Complaint: LOWER BACK, LEFT LEG SHOOTING PAIN Time Seen by Provider: 08/17/19 19:03 Source of Information: Reports: Patient History Limitations: Reports: No Limitations - History of Present Illness INITIAL COMMENTS - FREE TEXT/NARRATIVE: long h/o LBP present episode with left lumbar radiculitis. Left Leg Pain Score (Numeric/FACES): 9 - Related Data Allergies Allergy/AdvReac Type Severity Reaction Status Date / Time No Known Allergies Allergy Verified 08/17/19 18:31 Home Meds: Home Meds oxyCODONE HCl/Acetaminophen [Endocet 10-325 mg Tablet] 1 each PO TID 06/15/17 [ History] Ibuprofen 600 mg PO ASDIRECTED PRN 06/03/18 [History] Ranitidine HCl [Zantac 75] 75 mg PO ASDIRECTED PRN 06/03/18 [History] SitaGLIPtin [Januvia] 25 mg PO BEDTIME 08/17/19 [History] Past Medical History - Past Health History Medical/Surgical History: Denies Medical/Surgical History HEENT History: Reports: None Cardiovascular History: Reports: None Respiratory History: Reports: Asthma Gastrointestinal History: Reports: GERD, Hiatal Hernia Genitourinary History: Reports: None Musculoskeletal History: Reports: Back Pain, Chronic, Other (See Below) Other Musculoskeletal History: left knee injury in 2016. buldging disc. L4-5. Back surgery in 2017 Neurological History: Reports: Other (See Below) Other Neuro History: bulging L4 & L5 discs. sciatic nerve pain Psychiatric History: Reports: None Endocrine/Metabolic History: Reports: Diabetes, Type II Hematologic History: Reports: None Immunologic History: Reports: None Oncologic (Cancer) History: Reports: None Dermatologic History: Reports: None - Infectious Disease History Infectious Disease History: Reports: Chicken Pox - Past Surgical History Head Surgeries/Procedures: Reports: None Neurological Surgical History: Reports: Lumbar Spine Social & Family History - Family History Family Medical History: Noncontributory : Reports: Diabetic Nephropathy Other Family History: mother Musculoskeletal: Reports: Arthritis Other Musculoskeletal Family History: mother Oncologic: Reports: Brain, Lung Other Oncologic Family History: father - Tobacco Use Smoking Status *Q: Current Every Day Smoker Years of Tobacco use: 15 Packs/Tins Daily: 1 Used Tobacco, but Quit: No Second Hand Smoke Exposure: No - Caffeine Use Caffeine Use: Reports: Coffee, Soda - Recreational Drug Use Recreational Drug Use: No - Living Situation & Occupation Living situation: Reports: with Family Occupation: Employed ED ROS GENERAL - Review of Systems Review Of Systems: ROS reveals no pertinent complaints other than HPI. ED EXAM,LOWER BACK PAIN/INJURY - Physical Exam Exam: See Below Exam Limited By: No Limitations General Appearance: Alert, WD/WN, Mild Distress, Moderate Distress, Other (pain) Ears: Hearing Grossly Normal Throat/Mouth: Normal Voice, No Airway Compromise Head: Atraumatic Neck: Non-Tender, Full Range of Motion Respiratory/Chest: No Respiratory Distress Cardiovascular: Regular Rate, Rhythm GI/Abdominal: Soft, Non-Tender Back Exam: Muscle Spasm, Paraspinal Tenderness, Other (L3-4-5-S1 wiht left radiculitis, gait limited to pain. ) Neurological: Alert, No Motor/Sensory Deficits, Oriented x 3 Psychiatric: Tearful Skin Exam: Warm, Dry, Normal Color Lymphatic: No Adenopathy Course - Vital Signs Last Recorded V/S: Last Vital Signs Temp 36.6 C 08/17/19 18:24 Pulse 82 08/17/19 18:24 Resp 20 08/17/19 18:24 BP 134/76 08/17/19 18:24 Pulse Ox 98 08/17/19 18:24 - Orders/Labs/Meds Meds: Medications Discontinued Medications Generic Name Dose Route Start Last Admin Trade Name Freq PRN Reason Stop Dose Admin Butorphanol Tartrate 2 mg 08/17/19 18:52 Stadol IM 08/17/19 18:53 ONETIME ONE Butorphanol Tartrate 2 mg 08/17/19 18:53 Stadol IVPUSH 08/17/19 18:54 ONETIME ONE Methylprednisolone Sodium Succinate 125 mg 08/17/19 18:52 Solu-Medrol IVPUSH 08/17/19 18:53 ONETIME ONE Metoclopramide HCl 10 mg 08/17/19 18:53 Reglan IVPUSH 08/17/19 18:54 ONETIME ONE Promethazine HCl 25 mg 08/17/19 18:52 Phenergan IM 08/17/19 18:53 ONETIME ONE Departure - Departure Time of Disposition: 19:10 Disposition: Home, Self-Care 01 Condition: Good Clinical Impression: Lumbar back pain with radiculopathy affecting left lower extremity - Discharge Information Additional Instructions: 1) rest 2) avoid bending lifting straining 3) try ice or heat to sore areas 4) follow up at clinic rx given; medrol dospak robaxin 500mg bid ti tid prn x 12
[2019-08-17 19:26] VITALS: BP 132/83; PULSE 84
== END 2019-08-17 19:30 | disposition home or self-care (01) ==
LOC: DL.ED 18:08
DX: M54.16 Radiculopathy, lumbar region (principal); J45.909 Unspecified asthma, uncomplicated; K21.9 Gastro-esophageal reflux disease without esophagitis; E11.9 Type 2 diabetes mellitus without complications; F17.210 Nicotine dependence, cigarettes, uncomplicated; Z79.899 Other long term (current) drug therapy; Z79.84 Long term (current) use of oral hypoglycemic drugs
CPT/HCPCS: 96374; 96375; 99283; J0595; J2765; J2930

== ENCOUNTER 2019-11-02 21:02 | Emergency (ER) | payer MEDICAID, OTHER ==
[2019-11-02 21:41] VITALS: BP 154/85; PULSE 90
[2019-11-02] MEDS ORDERED: methylPREDNISolone Sodium Succinate 125 MG/2 ML SDV IM ONE (23:57)
--- NOTE | 2019-11-03 00:24 | EDM.PDOC ---
ED HPI GENERAL MEDICAL PROBLEM - General Chief Complaint: Back Pain or Injury Stated Complaint: LEGS, BACK NERVES Time Seen by Provider: 11/02/19 23:58 Source of Information: Reports: Patient History Limitations: Reports: No Limitations - History of Present Illness INITIAL COMMENTS - FREE TEXT/NARRATIVE: This 34 yo male patient reports to the ED with increased lower back pain that radiates to both lower extremities. The patient reports he fell while at work yesterday and has had increased pain since the fall. The patient reports he feels like he has electric shocks in his right leg and continuous pain in his left leg since the fall. The patient is on a pain contract and has been taking his pain medications as prescribed. 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, Other (see below) Lower Back Pain Score (Numeric/FACES): 8 - Related Data Allergies Allergy/AdvReac Type Severity Reaction Status Date / Time No Known Allergies Allergy Verified 08/17/19 18:31 Home Meds: Home Meds oxyCODONE HCl/Acetaminophen [Endocet 10-325 mg Tablet] 1 each PO TID 06/15/17 [ History] Ibuprofen 600 mg PO ASDIRECTED PRN 06/03/18 [History] Gabapentin [Neurontin] 300 mg PO DAILY 08/17/19 [History] SitaGLIPtin [Januvia] 25 mg PO BEDTIME 08/17/19 [History] Past Medical History - Past Health History Medical/Surgical History: Denies Medical/Surgical History HEENT History: Reports: None Cardiovascular History: Reports: None Respiratory History: Reports: Asthma Gastrointestinal History: Reports: GERD, Hiatal Hernia Genitourinary History: Reports: None Musculoskeletal History: Reports: Back Pain, Chronic, Other (See Below) Other Musculoskeletal History: left knee injury in 2016. buldging disc. L4-5. Back surgery in 2017 Neurological History: Reports: Other (See Below) Other Neuro History: bulging L4 & L5 discs. sciatic nerve pain Psychiatric History: Reports: None Endocrine/Metabolic History: Reports: Diabetes, Type II Hematologic History: Reports: None Immunologic History: Reports: None Oncologic (Cancer) History: Reports: None Dermatologic History: Reports: None - Infectious Disease History Infectious Disease History: Reports: Chicken Pox - Past Surgical History Head Surgeries/Procedures: Reports: None Neurological Surgical History: Reports: Lumbar Spine Social & Family History - Family History Family Medical History: Noncontributory : Reports: Diabetic Nephropathy Other Family History: mother Musculoskeletal: Reports: Arthritis Other Musculoskeletal Family History: mother Oncologic: Reports: Brain, Lung Other Oncologic Family History: father - Tobacco Use Smoking Status *Q: Current Every Day Smoker Years of Tobacco use: 20 Packs/Tins Daily: 1 Used Tobacco, but Quit: No Second Hand Smoke Exposure: Yes - Caffeine Use Caffeine Use: Reports: Coffee, Soda - Recreational Drug Use Recreational Drug Use: No - Living Situation & Occupation Living situation: Reports: with Family Occupation: Employed ED ROS GENERAL - Review of Systems Review Of Systems: Comprehensive ROS is negative, except as noted in HPI. ED EXAM,LOWER BACK PAIN/INJURY - Physical Exam Exam: See Below Exam Limited By: No Limitations General Appearance: Alert, WD/WN, Moderate Distress Eye Exam: Bilateral Eye: EOMI, PERRL Ears: Hearing Grossly Normal Nose: Normal Inspection, No Blood Throat/Mouth: Normal Lips, Normal Teeth Back Exam: Paraspinal Tenderness, Vertebral Tenderness Extremities: Limited Range of Motion (due to pain in lower back) Neurological: Alert, Normal Mood/Affect Psychiatric: Normal Affect, Normal Mood Skin Exam: Warm, Dry, Intact, Normal Color, No Rash Lymphatic: No Adenopathy Course - Vital Signs Last Recorded V/S: Last Vital Signs Temp 36.5 C 11/02/19 21:36 Pulse 90 11/02/19 21:36 Resp 16 11/02/19 21:36 BP 154/85 H 11/02/19 21:36 Pulse Ox 97 11/02/19 21:36 - Orders/Labs/Meds Meds: Medications Discontinued Medications Generic Name Dose Route Start Last Admin Trade Name Juanq PRN Reason Stop Dose Admin Methylprednisolone Sodium Succinate 125 mg 11/02/19 23:57 11/03/19 00:11 Solu-Medrol IM 11/02/19 23:58 125 mg ONETIME ONE Administration Departure - Departure Time of Disposition: 00:38 Disposition: Home, Self-Care 01 Condition: Fair Clinical Impression: Back pain due to injury - Discharge Information *PRESCRIPTION DRUG MONITORING PROGRAM REVIEWED*: Not Applicable *COPY OF PRESCRIPTION DRUG MONITORING REPORT IN PATIENT MARI: Not Applicable Forms: ED Department Discharge Care Plan Goals: The patient was advised of the examination results during the visit. The patient was given an injection of Solumedrol (125 mg) while in the ED. The patient was discharged with scripts for Prednisone (20 mg) #10 to take 2 by mouth for 5 days. If the patient has any additional symptoms or concerns, the patient should either return to the emergency department or visit his primary care facility. Sepsis Event Note - Evaluation Sepsis Screening Result: No Definite Risk - Focused Exam Vital Signs: Vital Signs Temp Pulse Resp BP Pulse Ox 11/02/19 21:36 36.5 C 90 16 154/85 H 97 Date Exam was Performed: 11/03/19 Time Exam was Performed: 00:38
== END 2019-11-03 00:42 | disposition home or self-care (01) ==
LOC: DL.ED 21:02
DX: M54.5 Low back pain (principal); J45.909 Unspecified asthma, uncomplicated; E11.9 Type 2 diabetes mellitus without complications; F17.210 Nicotine dependence, cigarettes, uncomplicated; Z79.84 Long term (current) use of oral hypoglycemic drugs; W19.XXXA Unspecified fall, initial encounter; Y92.89 Other specified places as the place of occurrence of the external cause; Y99.0 Civilian activity done for income or pay
CPT/HCPCS: 72100; 96372; 99283; J2930

== ENCOUNTER 2019-11-10 00:12 | Emergency (ER) | payer MEDICAID ==
[2019-11-10 00:31] VITALS: BP 147/93; PULSE 85
--- NOTE | 2019-11-10 00:34 | EDM.PDOC ---
ED HPI GENERAL MEDICAL PROBLEM - General Chief Complaint: General Stated Complaint: INFLUENZA 2 PER PT Time Seen by Provider: 11/10/19 00:32 Source of Information: Reports: Patient History Limitations: Reports: No Limitations - History of Present Illness INITIAL COMMENTS - FREE TEXT/NARRATIVE: sick on-off with F/C body aches sleeping alot. still not better kids all with + influenza Generalized Pain Score (Numeric/FACES): 8 - Related Data Allergies Allergy/AdvReac Type Severity Reaction Status Date / Time No Known Allergies Allergy Verified 11/10/19 00:24 Home Meds: Home Meds oxyCODONE HCl/Acetaminophen [Endocet 10-325 mg Tablet] 1 each PO TID 06/15/17 [ History] Ibuprofen 600 mg PO ASDIRECTED PRN 06/03/18 [History] Gabapentin [Neurontin] 300 mg PO DAILY 08/17/19 [History] SitaGLIPtin [Januvia] 25 mg PO BEDTIME 08/17/19 [History] Past Medical History - Past Health History Medical/Surgical History: Denies Medical/Surgical History HEENT History: Reports: None Cardiovascular History: Reports: None Respiratory History: Reports: Asthma Gastrointestinal History: Reports: GERD, Hiatal Hernia Genitourinary History: Reports: None Musculoskeletal History: Reports: Back Pain, Chronic, Other (See Below) Other Musculoskeletal History: left knee injury in 2016. buldging disc. L4-5. Back surgery in 2017 Neurological History: Reports: Other (See Below) Other Neuro History: bulging L4 & L5 discs. sciatic nerve pain Psychiatric History: Reports: None Endocrine/Metabolic History: Reports: Diabetes, Type II Hematologic History: Reports: None Immunologic History: Reports: None Oncologic (Cancer) History: Reports: None Dermatologic History: Reports: None - Infectious Disease History Infectious Disease History: Reports: Chicken Pox - Past Surgical History Head Surgeries/Procedures: Reports: None Neurological Surgical History: Reports: Lumbar Spine Social & Family History - Family History Family Medical History: Noncontributory : Reports: Diabetic Nephropathy Other Family History: mother Musculoskeletal: Reports: Arthritis Other Musculoskeletal Family History: mother Oncologic: Reports: Brain, Lung Other Oncologic Family History: father - Tobacco Use Smoking Status *Q: Current Every Day Smoker Years of Tobacco use: 0 Packs/Tins Daily: 0 - Caffeine Use Caffeine Use: Reports: Coffee, Soda - Recreational Drug Use Recreational Drug Use: No - Living Situation & Occupation Living situation: Reports: with Family Occupation: Employed ED ROS GENERAL - Review of Systems Review Of Systems: Comprehensive ROS is negative, except as noted in HPI. ED EXAM, GENERAL - Physical Exam Exam: See Below Exam Limited By: No Limitations General Appearance: Alert, WD/WN, Mild Distress, Moderate Distress, Other ( discomfort) Ears: Hearing Grossly Normal Throat/Mouth: Normal Voice, No Airway Compromise Head: Atraumatic Neck: Non-Tender, Full Range of Motion Respiratory/Chest: No Accessory Muscle Use, Rhonchi. No: Decreased Breath Sounds Cardiovascular: Regular Rate, Rhythm GI/Abdominal: Soft, Non-Tender Neurological: Alert, Oriented, Normal Cognition, Normal Gait, No Motor/Sensory Deficits Psychiatric: Flat Affect Skin Exam: Warm, Dry, Normal Color Lymphatic: No Adenopathy Course - Vital Signs Last Recorded V/S: Last Vital Signs Temp 36.3 C 11/10/19 00:24 Pulse 85 11/10/19 00:24 Resp 20 11/10/19 00:24 BP 147/93 H 11/10/19 00:24 Pulse Ox 96 11/10/19 00:24 - Re-Assessments/Exams Free Text/Narrative Re-Assessment/Exam: 11/10/19 00:51 results discussed with pt. Departure - Departure Time of Disposition: 00:51 Disposition: Home, Self-Care 01 Condition: Good Clinical Impression: Flu syndrome - Discharge Information Forms: ED Department Discharge Additional Instructions: 1) sleep as much as possible 2) drink lots of liquids 3) take tylenol or motrin for fever and body aches 4) follow up at clinic rx given; tessalon pearles 100mg bid prn x 12 Sepsis Event Note - Evaluation Sepsis Screening Result: No Definite Risk - Focused Exam Vital Signs: Vital Signs Temp Pulse Resp BP Pulse Ox 11/10/19 00:24 36.3 C 85 20 147/93 H 96 Date Exam was Performed: 11/10/19 Time Exam was Performed: 00:51
== END 2019-11-10 00:56 | disposition home or self-care (01) ==
LOC: DL.ED 00:12
DX: J11.1 Influenza due to unidentified influenza virus with other respiratory manifestations (principal); J45.909 Unspecified asthma, uncomplicated; E11.9 Type 2 diabetes mellitus without complications; F17.210 Nicotine dependence, cigarettes, uncomplicated; Z79.84 Long term (current) use of oral hypoglycemic drugs
CPT/HCPCS: 87804; 99283

== ENCOUNTER 2019-11-25 20:48 | Emergency (ER) | payer MEDICAID ==
[2019-11-25] MEDS ORDERED: Acetaminophen/oxyCODONE 325-5 MG Tab PO ONE (20:49)
[2019-11-25 21:49] VITALS: BP 149/85; PULSE 83
[2019-11-25] MEDS ORDERED: Bupivacaine 0.5% 30 ML SDV INJECT ONE (22:06)
[2019-11-25] MEDS ORDERED: Lidocaine 1% with EPINEPHrine 1:100,000 20 ML MDV INJECT ONE (22:06)
--- NOTE | 2019-11-25 22:11 | EDM.PDOC ---
ED HPI GENERAL MEDICAL PROBLEM - General Chief Complaint: ENT Problem Stated Complaint: RIGHT LOWER WISDOM HURT Time Seen by Provider: 11/25/19 22:05 Source of Information: Reports: Patient History Limitations: Reports: No Limitations - History of Present Illness INITIAL COMMENTS - FREE TEXT/NARRATIVE: she comes emergency department today with complaints of right lower jaw pain. This patient yesterday had a wisdom tooth extracted in [place] by the dentist. Been taking Tylenol and ibuprofen and his chronic Percocets without relief of pain.He is on clindamycin as well for the extraction and an abscess as well under another tooth. he has been eating and drinking properly. No fever no chills. No difficulty swallowing or breathing. Right Face/Facial Pain Score (Numeric/FACES): 9 - Related Data Allergies Allergy/AdvReac Type Severity Reaction Status Date / Time No Known Allergies Allergy Verified 11/25/19 21:49 Home Meds: Home Meds oxyCODONE HCl/Acetaminophen [Endocet 10-325 mg Tablet] 1 each PO TID 06/15/17 [ History] Ibuprofen 600 mg PO ASDIRECTED PRN 06/03/18 [History] Gabapentin [Neurontin] 300 mg PO DAILY 08/17/19 [History] SitaGLIPtin [Januvia] 25 mg PO BEDTIME 08/17/19 [History] Past Medical History - Past Health History Medical/Surgical History: Denies Medical/Surgical History HEENT History: Reports: None Cardiovascular History: Reports: None Respiratory History: Reports: Asthma Gastrointestinal History: Reports: GERD, Hiatal Hernia Genitourinary History: Reports: None Musculoskeletal History: Reports: Back Pain, Chronic, Other (See Below) Other Musculoskeletal History: left knee injury in 2016. buldging disc. L4-5. Back surgery in 2017 Neurological History: Reports: Other (See Below) Other Neuro History: bulging L4 & L5 discs. sciatic nerve pain Psychiatric History: Reports: None Endocrine/Metabolic History: Reports: Diabetes, Type II Hematologic History: Reports: None Immunologic History: Reports: None Oncologic (Cancer) History: Reports: None Dermatologic History: Reports: None - Infectious Disease History Infectious Disease History: Reports: Chicken Pox - Past Surgical History Head Surgeries/Procedures: Reports: None Neurological Surgical History: Reports: Lumbar Spine Social & Family History - Family History Family Medical History: Noncontributory : Reports: Diabetic Nephropathy Other Family History: mother Musculoskeletal: Reports: Arthritis Other Musculoskeletal Family History: mother Oncologic: Reports: Brain, Lung Other Oncologic Family History: father - Tobacco Use Smoking Status *Q: Heavy Tobacco Smoker Years of Tobacco use: 7 Packs/Tins Daily: 0.5 - Caffeine Use Caffeine Use: Reports: Coffee, Soda - Recreational Drug Use Recreational Drug Use: No - Living Situation & Occupation Living situation: Reports: with Family Occupation: Employed ED ROS ENT - Review of Systems Review Of Systems: Comprehensive ROS is negative, except as noted in HPI. ED EXAM, ENT - Physical Exam Exam: See Below Exam Limited By: No Limitations General Appearance: Alert, WD/WN, No Apparent Distress Mouth/Throat: Normal Gums, Normal Lips, Dental Pain, Dental Tenderness. No: Normal Teeth (there are multiple sites of dental caries primarily in the left upper jaw. There is no overt induration abscess or swelling. In the right lower jaw on the area of the wisdom tooth there is the extraction site that appears healing well. There is no bleeding. There is no drainage. There is no erythema induration swelling or pockets. There is no facial swelling externally.), Bleeding, Dental Trauma, Drooling, Gum Swelling, Hoarse Voice, Lip Swelling, Lip Ulcers, Pharyngeal Erythema, Tongue Swelling, Uvular Deviation, Uvular Edema Head: Atraumatic, Normocephalic Neck: Normal Inspection, Supple, Non-Tender, Full Range of Motion Respiratory/Chest: No Respiratory Distress, Lungs Clear, Normal Breath Sounds, No Accessory Muscle Use Cardiovascular: Normal Peripheral Pulses, Regular Rate, Rhythm GI/Abdominal: Normal Bowel Sounds, Soft Neurological: Alert, Oriented Psychiatric: Normal Affect Skin: Warm, Dry, Intact, Normal Color Course - Vital Signs Last Recorded V/S: Last Vital Signs Temp 36.8 C 11/25/19 21:47 Pulse 83 11/25/19 21:47 Resp 18 11/25/19 21:47 BP 149/85 H 11/25/19 21:47 Pulse Ox 97 11/25/19 21:47 - Orders/Labs/Meds Meds: Medications Discontinued Medications Generic Name Dose Route Start Last Admin Trade Name Freq PRN Reason Stop Dose Admin Bupivacaine HCl 30 ml 11/25/19 22:06 11/25/19 22:15 Marcaine 0.5% INJECT 11/25/19 22:07 30 ml ONETIME ONE Administration Lidocaine/Epinephrine 20 ml 11/25/19 22:06 11/25/19 22:15 Xylocaine 1% With Epinephrine 1:100,000 INJECT 11/25/19 22:07 20 ml ONETIME ONE Administration - Re-Assessments/Exams Free Text/Narrative Re-Assessment/Exam: 11/25/19 22:21 risk and benefits of an inferior right lower alveolar block were explained to the patient. His questions were answered and he gave verbal consent. 1 percent lidocaine with epinephrine and 0.5% bupivacaine without epinephrine was mixed in a 50/50 fashion. after the appropriate landmarks were identified the above mixture was injected after verification of no blood return and the inferior alveolar block . A proximally 4 mils of the above solution was injected. The patient had almost complete pain resolution.Following the procedure. He feels much better. This block will not last until he is able to see the dentist so I will send him home with a couple extra Percocet so that he does not have to use his chronic medications for this. He is to continue his clindamycin he is understanding of this and his questions are answered. He is pain-free on discharge. 11/25/19 22:55 Departure - Departure Time of Disposition: 22:40 Disposition: Home, Self-Care 01 Clinical Impression: Pain, dental - Discharge Information Referrals: PCP,None [Primary Care Provider] - Forms: ED Department Discharge Additional Instructions: Continue with the Tylenol and or Ibuprofen. Continue with the Clindamycin I have given you 2 extra Percocets for the night to help get you through to see the dentist in the morning so you don't have to use your chronic medication for this. Push oral fluids. Rest tonight. Return to the ED if new or worsening symptoms. Follow up with Dentist tomorrow as planned. Sepsis Event Note - Evaluation Sepsis Screening Result: No Definite Risk - Focused Exam Vital Signs: Vital Signs Temp Pulse Resp BP Pulse Ox 11/25/19 21:47 36.8 C 83 18 149/85 H 97 Date Exam was Performed: 11/25/19 Time Exam was Performed: 22:55 - Assessment/Plan Assessment:: Right lower dental pain SP wisdom tooth extraction. Right lower inferior alveolar block completed by myself. Plan: Continue with the Tylenol and or Ibuprofen. Continue with the Clindamycin I have given you 2 extra Percocets for the night to help get you through to see the dentist in the morning so you don't have to use your chronic medication for this. Push oral fluids. Rest tonight. Return to the ED if new or worsening symptoms. Follow up with Dentist tomorrow as planned.
[2019-11-25] MEDS ORDERED: Acetaminophen/oxyCODONE 325-5 MG Tab ONE (22:59)
== END 2019-11-25 23:00 | disposition home or self-care (01) ==
LOC: DL.ED 20:48
DX: K08.89 Other specified disorders of teeth and supporting structures (principal); J45.909 Unspecified asthma, uncomplicated; E11.9 Type 2 diabetes mellitus without complications; F17.210 Nicotine dependence, cigarettes, uncomplicated; Z79.84 Long term (current) use of oral hypoglycemic drugs
CPT/HCPCS: 64400; 99282; J3490; A9270-GY

== ENCOUNTER 2019-11-27 19:15 | Emergency (ER) | payer MEDICAID ==
[2019-11-27 20:20] VITALS: BP 130/75; PULSE 77
--- NOTE | 2019-11-27 21:29 | EDM.PDOC ---
ED HPI GENERAL MEDICAL PROBLEM - General Chief Complaint: ENT Problem Stated Complaint: MOUTH PAIN Time Seen by Provider: 11/27/19 20:30 Source of Information: Reports: Patient, RN, RN Notes Reviewed History Limitations: Reports: No Limitations - History of Present Illness INITIAL COMMENTS - FREE TEXT/NARRATIVE: patient presents to ER with complaint of dental pain. Patient states he had right lower wisdom tooth removed on Wednesday. Patient states he has had increasingly more pain, unable to eat, pain radiates down into the throat. Patient is on 2 antibiotics, has been doing warm water rinses of the mouth, states he has had some fever and chills. 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 Right Lower Gums Pain Score (Numeric/FACES): 8 - Related Data Allergies Allergy/AdvReac Type Severity Reaction Status Date / Time No Known Allergies Allergy Verified 11/27/19 20:21 Home Meds: Home Meds oxyCODONE HCl/Acetaminophen [Endocet 10-325 mg Tablet] 1 each PO TID 06/15/17 [ History] Ibuprofen 600 mg PO ASDIRECTED PRN 06/03/18 [History] Gabapentin [Neurontin] 300 mg PO DAILY 08/17/19 [History] SitaGLIPtin [Januvia] 25 mg PO BEDTIME 08/17/19 [History] Past Medical History - Past Health History Medical/Surgical History: Denies Medical/Surgical History HEENT History: Reports: Other (See Below) Other HEENT History: [place] teeth removal November 25, 2019 Cardiovascular History: Reports: None Respiratory History: Reports: Asthma Gastrointestinal History: Reports: GERD, Hiatal Hernia Genitourinary History: Reports: None Musculoskeletal History: Reports: Back Pain, Chronic, Other (See Below) Other Musculoskeletal History: left knee injury in 2016. buldging disc. L4-5. Back surgery in 2017 Neurological History: Reports: None, Other (See Below) Other Neuro History: bulging L4 & L5 discs. sciatic nerve pain Psychiatric History: Reports: None Endocrine/Metabolic History: Reports: Diabetes, Type II Hematologic History: Reports: None Immunologic History: Reports: None Oncologic (Cancer) History: Reports: None Dermatologic History: Reports: None - Infectious Disease History Infectious Disease History: Reports: Chicken Pox - Past Surgical History Head Surgeries/Procedures: Reports: None HEENT Surgical History: Reports: Oral Surgery Cardiovascular Surgical History: Reports: None GI Surgical History: Reports: None Male Surgical History: Reports: None Endocrine Surgical History: Reports: None Neurological Surgical History: Reports: Lumbar Spine Social & Family History - Family History Family Medical History: Noncontributory : Reports: Diabetic Nephropathy Other Family History: mother Musculoskeletal: Reports: Arthritis Other Musculoskeletal Family History: mother Oncologic: Reports: Brain, Lung Other Oncologic Family History: father - Tobacco Use Smoking Status *Q: Current Every Day Smoker Years of Tobacco use: 17 Packs/Tins Daily: 0.5 Used Tobacco, but Quit: No - Caffeine Use Caffeine Use: Reports: Coffee - Recreational Drug Use Recreational Drug Use: No - Living Situation & Occupation Living situation: Reports: with Family Occupation: Employed ED ROS GENERAL - Review of Systems Review Of Systems: Comprehensive ROS is negative, except as noted in HPI. ED EXAM, GENERAL - Physical Exam Exam: See Below Exam Limited By: No Limitations General Appearance: Alert, WD/WN, Moderate Distress Eye Exam: Bilateral Eye: EOMI, Normal Inspection Ears: Normal External Exam, Hearing Grossly Normal Nose: Normal Inspection Throat/Mouth: Other (Dry socket right lower wisdom tooth removal area) Head: Atraumatic, Normocephalic Neck: Normal Inspection, Supple, Full Range of Motion, Lymphadenopathy (R), Tender Lateral Respiratory/Chest: No Respiratory Distress, Lungs Clear, Normal Breath Sounds, No Accessory Muscle Use, Chest Non-Tender Cardiovascular: Normal Peripheral Pulses, Regular Rate, Rhythm, No Edema, No Gallop, No JVD, No Murmur, No Rub Peripheral Pulses: 2+: Radial (L), Radial (R) GI/Abdominal: Normal Bowel Sounds, Soft, Non-Tender (Male) Exam: Deferred Rectal (Males) Exam: Deferred Back Exam: Normal Inspection, Full Range of Motion, NT Extremities: Normal Inspection, Normal Range of Motion, Non-Tender, Normal Capillary Refill, No Pedal Edema Neurological: Alert, Oriented, CN II-XII Intact, Normal Cognition, Normal Gait, Normal Reflexes, No Motor/Sensory Deficits Psychiatric: Anxious, Tearful Skin Exam: Warm, Intact, Normal Color, No Rash, Diaphoretic Lymphatic: No Adenopathy ED GENERAL MEDICAL PROCEDURES - Additional/Other Procedure(s) Other (Free Text) Procedure(s): Alveolar dental block completed on the right side with Bupivicaine retrieved from the Dental box. Patient states improvement. Dry Socket paste was used to fill the hole where the tooth was extracted. Course - Vital Signs Last Recorded V/S: Last Vital Signs Temp 97 F 11/27/19 20:14 Pulse 77 11/27/19 20:14 Resp 18 11/27/19 20:14 BP 130/75 11/27/19 20:14 Pulse Ox 99 11/27/19 20:14 - Orders/Labs/Meds Meds: Medications Discontinued Medications Generic Name Dose Route Start Last Admin Trade Name Gary PRN Reason Stop Dose Admin Oxycodone/Acetaminophen Confirm 11/27/19 21:34 11/27/19 21:59 Percocet 325-5 Mg Administered 11/27/19 21:35 Not Given Dose 2 tab .ROUTE .STK-MED ONE Departure - Departure Time of Disposition: 21:27 Disposition: Home, Self-Care 01 Condition: Fair Clinical Impression: Alveolar osteitis - Discharge Information *PRESCRIPTION DRUG MONITORING PROGRAM REVIEWED*: No *COPY OF PRESCRIPTION DRUG MONITORING REPORT IN PATIENT MARI: No Instructions: Dental Dry Socket, [id number] Referrals: Tiesha Mariscal MD [Primary Care Provider] - Forms: ED Department Discharge Additional Instructions: Take up to 4000mg of Vitamin C daily RX: Percocet 5/325mg orally every 4-6 hours as needed for pain Ibuprofen 800mg orally every 8 hours as needed for pain Drink plenty of water Follow up with your dentist Sepsis Event Note - Evaluation Sepsis Screening Result: No Definite Risk - Focused Exam Vital Signs: Vital Signs Temp Pulse Resp BP Pulse Ox 11/27/19 20:14 97 F 77 18 130/75 99 Date Exam was Performed: 11/28/19 Time Exam was Performed: 02:09
[2019-11-27] MEDS ORDERED: Acetaminophen/oxyCODONE 325-5 MG Tab ONE (21:34)
== END 2019-11-27 21:37 | disposition home or self-care (01) ==
LOC: DL.ED 19:15
DX: M27.3 Alveolitis of jaws (principal); E11.9 Type 2 diabetes mellitus without complications; F17.210 Nicotine dependence, cigarettes, uncomplicated; Z79.84 Long term (current) use of oral hypoglycemic drugs
CPT/HCPCS: 64400; 99282-25

== ENCOUNTER 2020-03-23 00:37 | Emergency (ER) | payer MEDICAID ==
[2020-03-23 01:02] VITALS: BP 152/85; PULSE 85
[2020-03-23] MEDS ORDERED: Clindamycin HCl 150 MG Cap PO ONE (01:06)
[2020-03-23] MEDS ORDERED: Acetaminophen/HYDROcodone 325-10 MG Tab PO ONE (01:06)
--- NOTE | 2020-03-23 01:12 | EDM.PDOC ---
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 Left Upper Tooth/Teeth Pain Score (Numeric/FACES): 8 - Related Data Allergies Allergy/AdvReac Type Severity Reaction Status Date / Time No Known Allergies Allergy Verified 03/23/20 01:02 Home Meds: Home Meds oxyCODONE HCl/Acetaminophen [Endocet 10-325 mg Tablet] 1 each PO TID 06/15/17 [ History] Ibuprofen 600 mg PO ASDIRECTED PRN 06/03/18 [History] Gabapentin [Neurontin] 300 mg PO DAILY 08/17/19 [History] SitaGLIPtin [Januvia] 25 mg PO BEDTIME 08/17/19 [History] Past Medical History - Past Health History Medical/Surgical History: Denies Medical/Surgical History HEENT History: Reports: Other (See Below) Other HEENT History: [place] teeth removal November 25, 2019 Cardiovascular History: Reports: None Respiratory History: Reports: Asthma Gastrointestinal History: Reports: GERD, Hiatal Hernia Genitourinary History: Reports: None Musculoskeletal History: Reports: Back Pain, Chronic, Other (See Below) Other Musculoskeletal History: left knee injury in 2016. buldging disc. L4-5. Back surgery in 2017 Neurological History: Reports: None, Other (See Below) Other Neuro History: bulging L4 & L5 discs. sciatic nerve pain Psychiatric History: Reports: None Endocrine/Metabolic History: Reports: Diabetes, Type II Hematologic History: Reports: None Immunologic History: Reports: None Oncologic (Cancer) History: Reports: None Dermatologic History: Reports: None - Infectious Disease History Infectious Disease History: Reports: Chicken Pox - Past Surgical History Head Surgeries/Procedures: Reports: None HEENT Surgical History: Reports: Oral Surgery Cardiovascular Surgical History: Reports: None GI Surgical History: Reports: None Male Surgical History: Reports: None Endocrine Surgical History: Reports: None Neurological Surgical History: Reports: Lumbar Spine Social & Family History - Family History Family Medical History: Noncontributory : Reports: Diabetic Nephropathy Other Family History: mother Musculoskeletal: Reports: Arthritis Other Musculoskeletal Family History: mother Oncologic: Reports: Brain, Lung Other Oncologic Family History: father - Tobacco Use Smoking Status *Q: Current Every Day Smoker Years of Tobacco use: 16 Packs/Tins Daily: 0.5 - Caffeine Use Caffeine Use: Reports: Coffee, Soda - Recreational Drug Use Recreational Drug Use: No - Living Situation & Occupation Living situation: Reports: with Family Occupation: Employed ED ROS ENT - Review of Systems Review Of Systems: Comprehensive ROS is negative, except as noted in HPI. ED EXAM, ENT - Physical Exam Exam: See Below Exam Limited By: No Limitations General Appearance: Alert, WD/WN, Mild Distress, Moderate Distress, Other (pain) Ears: Hearing Grossly Normal Mouth/Throat: Dental Abcess, Dental Pain, Dental Tenderness Head: Atraumatic Neck: Non-Tender, Full Range of Motion Respiratory/Chest: No Respiratory Distress Cardiovascular: Regular Rate, Rhythm GI/Abdominal: Soft, Non-Tender Neurological: Alert, Oriented, Normal Cognition, Normal Gait, No Motor/Sensory Deficits Psychiatric: Tearful Skin: Warm, Dry, Normal Color Lymphatic: No Adenopathy Course - Vital Signs Last Recorded V/S: Last Vital Signs Temp 36.9 C 03/23/20 00:55 Pulse 85 03/23/20 00:55 Resp 19 03/23/20 00:55 BP 152/85 H 03/23/20 00:55 Pulse Ox 98 03/23/20 00:55 - Orders/Labs/Meds Meds: Medications Discontinued Medications Generic Name Dose Route Start Last Admin Trade Name Freq PRN Reason Stop Dose Admin Hydrocodone Bitart/Acetaminophen 1 tab 03/23/20 01:06 [place] 325-10 Mg PO 03/23/20 01:07 ONETIME ONE Clindamycin HCl 300 mg 03/23/20 01:06 [place] PO 03/23/20 01:07 ONETIME ONE Departure - Departure Time of Disposition: 01:10 Disposition: Home, Self-Care 01 Condition: Good Clinical Impression: Dental caries, Dental caries extending into dentin - Discharge Information Instructions: Dental Abscess, [id number] Additional Instructions: 1) avoid solid foods 2) see dentist rx given; clindamycin 300mg qid x 40 vicodin 5/325mg bid prn x 6 Sepsis Event Note - Evaluation Sepsis Screening Result: No Definite Risk - Focused Exam Vital Signs: Vital Signs Temp Pulse Resp BP Pulse Ox 05/30/20 00:55 36.9 C 85 19 152/85 H 98 Date Exam was Performed: 03/23/20 Time Exam was Performed: 01:08
== END 2020-03-23 01:22 | disposition home or self-care (01) ==
LOC: DL.ED 00:37
DX: K02.9 Dental caries, unspecified (principal); J45.909 Unspecified asthma, uncomplicated; Z79.84 Long term (current) use of oral hypoglycemic drugs; Z79.899 Other long term (current) drug therapy; F17.210 Nicotine dependence, cigarettes, uncomplicated
CPT/HCPCS: 99282; A9270

== ENCOUNTER 2020-03-25 08:24 | Emergency (ER) | payer MEDICAID ==
[2020-03-25 08:37] VITALS: BP 143/89; PULSE 101
--- NOTE | 2020-03-25 08:37 | EDM.PDOC ---
ED HPI GENERAL MEDICAL PROBLEM - General Chief Complaint: ENT Problem Stated Complaint: TOOTH PAIN Time Seen by Provider: 03/25/20 08:33 Source of Information: Reports: Patient, Old Records, RN, RN Notes Reviewed History Limitations: Reports: No Limitations - History of Present Illness INITIAL COMMENTS - FREE TEXT/NARRATIVE: Pt presents with c/o dental pain. He was seen here last week and treated with Clindamycin and Hydrocodone. He states his dental clinic has been closed due to Covid. He does not think the Clindamycin has been helping. He is out of Hydrocodone. His [place] [facility] report indicates he has had 17 controlled substance prescriptions filled so far this year. Duration: Chronic, Constant Location: Reports: Other (dental) Quality: Reports: Ache, Throbbing Severity: Severe Improves with: Reports: None Worsens with: Reports: Eating Associated Symptoms: Reports: No Other Symptoms Oral/Mouth Pain Score (Numeric/FACES): 10 - Related Data Allergies Allergy/AdvReac Type Severity Reaction Status Date / Time No Known Allergies Allergy Verified 03/25/20 08:37 Home Meds: Home Meds oxyCODONE HCl/Acetaminophen [Endocet 10-325 mg Tablet] 1 each PO TID 06/15/17 [ History] Ibuprofen 600 mg PO ASDIRECTED PRN 06/03/18 [History] Gabapentin [Neurontin] 300 mg PO DAILY 08/17/19 [History] SitaGLIPtin [Januvia] 25 mg PO BEDTIME 08/17/19 [History] Past Medical History - Past Health History Medical/Surgical History: Denies Medical/Surgical History HEENT History: Reports: Other (See Below) Other HEENT History: [place] teeth removal November 25, 2019 Cardiovascular History: Reports: None Respiratory History: Reports: Asthma Gastrointestinal History: Reports: GERD, Hiatal Hernia Genitourinary History: Reports: None Musculoskeletal History: Reports: Back Pain, Chronic, Other (See Below) Other Musculoskeletal History: left knee injury in 2016. buldging disc. L4-5. Back surgery in 2017 Neurological History: Reports: None, Other (See Below) Other Neuro History: bulging L4 & L5 discs. sciatic nerve pain Psychiatric History: Reports: Addiction Endocrine/Metabolic History: Reports: Diabetes, Type II Hematologic History: Reports: None Immunologic History: Reports: None Oncologic (Cancer) History: Reports: None Dermatologic History: Reports: None - Infectious Disease History Infectious Disease History: Reports: Chicken Pox - Past Surgical History Head Surgeries/Procedures: Reports: None HEENT Surgical History: Reports: Oral Surgery Cardiovascular Surgical History: Reports: None GI Surgical History: Reports: None Male Surgical History: Reports: None Endocrine Surgical History: Reports: None Neurological Surgical History: Reports: Lumbar Spine Social & Family History - Family History Family Medical History: Noncontributory : Reports: Diabetic Nephropathy Other Family History: mother Musculoskeletal: Reports: Arthritis Other Musculoskeletal Family History: mother Oncologic: Reports: Brain, Lung Other Oncologic Family History: father - Caffeine Use Caffeine Use: Reports: Coffee, Soda - Living Situation & Occupation Living situation: Reports: with Family Occupation: Employed ED ROS ENT - Review of Systems Review Of Systems: Comprehensive ROS is negative, except as noted in HPI. ED EXAM, ENT - Physical Exam Exam: See Below Exam Limited By: No Limitations General Appearance: Alert, WD/WN, No Apparent Distress Eye Exam: Bilateral Eye: Normal Inspection Ears: Normal External Exam, Hearing Grossly Normal Nose: Normal Inspection Mouth/Throat: Normal Lips, Normal Oropharynx, Dental Pain, Dental Tenderness, Other (chronic dental decay) Head: Atraumatic, Normocephalic Neck: Normal Inspection. No: Lymphadenopathy (L), Lymphadenopathy (R) Respiratory/Chest: No Respiratory Distress Neurological: Alert, Oriented, CN II-XII Intact, No Motor/Sensory Deficits Psychiatric: Normal Mood Skin: Warm, Dry, Intact, Normal Color, No Rash Course - Vital Signs Last Recorded V/S: Last Vital Signs Temp 97.6 F 03/25/20 08:32 Pulse 101 H 03/25/20 08:32 Resp 14 03/25/20 08:32 BP 143/89 H 03/25/20 08:32 Pulse Ox 98 03/25/20 08:32 - Orders/Labs/Meds Orders: Active Orders 24 hr Category Date Time Status Acetaminophen/HYDROcodone [[place] 325-10 MG] Med 03/25/20 08:40 Once 1 tab PO ONETIME ONE Amoxicillin/Clavulanate K [Augmentin 875 MG/125 MG] Med 03/25/20 08:40 Once 1 tab PO ONETIME ONE Departure - Departure Time of Disposition: 08:41 Disposition: Home, Self-Care 01 Condition: Good Clinical Impression: Pain, dental, Dental caries extending into dentin - Discharge Information *PRESCRIPTION DRUG MONITORING PROGRAM REVIEWED*: Yes *COPY OF PRESCRIPTION DRUG MONITORING REPORT IN PATIENT MARI: Yes Instructions: Dental Abscess, [id number] Forms: ED Department Discharge Additional Instructions: Rx: Augmentin 875mg [place] the Clindamycin prescription. Use the Lidocaine Gel every 2 hours as needed, spit the excess. Follow up with your clinic doctor for pain management if your dental clinic does not open this week. Sepsis Event Note - Focused Exam Vital Signs: Vital Signs Temp Pulse Resp BP Pulse Ox 03/25/20 08:32 97.6 F 101 H 14 143/89 H 98 Date Exam was Performed: 03/25/20 Time Exam was Performed: 08:41 - My Orders Last 24 Hours: My Active Orders 03/25/20 08:40 Acetaminophen/HYDROcodone [[place] 325-10 MG] 1 tab PO ONETIME ONE Amoxicillin/Clavulanate K [Augmentin 875 MG/125 MG] 1 tab PO ONETIME ONE - Assessment/Plan Last 24 Hours: My Active Orders 03/25/20 08:40 Acetaminophen/HYDROcodone [[place] 325-10 MG] 1 tab PO ONETIME ONE Amoxicillin/Clavulanate K [Augmentin 875 MG/125 MG] 1 tab PO ONETIME ONE
[2020-03-25] MEDS ORDERED: Acetaminophen/HYDROcodone 325-10 MG Tab PO ONE (08:40)
[2020-03-25] MEDS ORDERED: Amoxicillin/Clavulanate K 875-125 MG Tab PO ONE (08:40)
== END 2020-03-25 08:49 | disposition home or self-care (01) ==
LOC: DL.ED 08:24
DX: K02.9 Dental caries, unspecified (principal); J45.909 Unspecified asthma, uncomplicated; E11.9 Type 2 diabetes mellitus without complications; Z79.84 Long term (current) use of oral hypoglycemic drugs; Z79.899 Other long term (current) drug therapy
CPT/HCPCS: 99282; A9270

== ENCOUNTER 2020-03-25 20:00 | Emergency (ER) | payer MEDICAID ==
[2020-03-25] MEDS ORDERED: Acetaminophen/HYDROcodone 325-10 MG Tab PO ONE (20:01)
--- NOTE | 2020-03-25 20:10 | EDM.PDOC ---
ED HPI GENERAL MEDICAL PROBLEM - General Chief Complaint: ENT Problem Stated Complaint: MOUTH PAIN Time Seen by Provider: 03/25/20 20:09 Source of Information: Reports: Patient, RN, RN Notes Reviewed History Limitations: Reports: No Limitations - History of Present Illness INITIAL COMMENTS - FREE TEXT/NARRATIVE: Patient presents to the ER with complaint of dental pain to the left upper back molars and incisor. Patient was to have them removed but since the , his dentist in [place] has been closed. He was able to get an appointment set up today for Wednesday to have the teeth extracted. Patient was seen in the ER on March 23, as well as today March 25 this morning. Patient was started on Augmentin at that time and was given 1 [place]. Patient states he has been having severe pain, rating it 9/10, with headache associated. Patient states he has been taking the antibiotics and the ibuprofen as directed. States he has not been able to eat much, so stomach is upset from these medications. Onset: Gradual Left Face/Facial Pain Score (Numeric/FACES): 9 - Related Data Allergies Allergy/AdvReac Type Severity Reaction Status Date / Time No Known Allergies Allergy Verified 03/25/20 08:37 Home Meds: Home Meds Ibuprofen 800 mg PO ASDIRECTED PRN 06/03/18 [History] SitaGLIPtin [Januvia] 25 mg PO BEDTIME 08/17/19 [History] Past Medical History - Past Health History Medical/Surgical History: Denies Medical/Surgical History HEENT History: Reports: Other (See Below) Other HEENT History: [place] teeth removal November 25, 2019 Cardiovascular History: Reports: None Respiratory History: Reports: Asthma Gastrointestinal History: Reports: GERD, Hiatal Hernia Genitourinary History: Reports: None Musculoskeletal History: Reports: Back Pain, Chronic, Other (See Below) Other Musculoskeletal History: left knee injury in 2016. buldging disc. L4-5. Back surgery in 2017 Neurological History: Reports: None, Other (See Below) Other Neuro History: bulging L4 & L5 discs. sciatic nerve pain Psychiatric History: Reports: Addiction Endocrine/Metabolic History: Reports: Diabetes, Type II Hematologic History: Reports: None Immunologic History: Reports: None Oncologic (Cancer) History: Reports: None Dermatologic History: Reports: None - Infectious Disease History Infectious Disease History: Reports: Chicken Pox - Past Surgical History Head Surgeries/Procedures: Reports: None HEENT Surgical History: Reports: Oral Surgery Cardiovascular Surgical History: Reports: None GI Surgical History: Reports: None Male Surgical History: Reports: None Endocrine Surgical History: Reports: None Neurological Surgical History: Reports: Lumbar Spine Social & Family History - Family History Family Medical History: Noncontributory : Reports: Diabetic Nephropathy Other Family History: mother Musculoskeletal: Reports: Arthritis Other Musculoskeletal Family History: mother Oncologic: Reports: Brain, Lung Other Oncologic Family History: father - Caffeine Use Caffeine Use: Reports: Coffee, Soda - Living Situation & Occupation Living situation: Reports: with Family Occupation: Employed ED ROS GENERAL - Review of Systems Review Of Systems: Comprehensive ROS is negative, except as noted in HPI. ED EXAM, GENERAL - Physical Exam Exam: See Below Exam Limited By: No Limitations General Appearance: Alert, WD/WN, Moderate Distress Eye Exam: Bilateral Eye: EOMI, Normal Inspection Ears: Normal External Exam, Hearing Grossly Normal Nose: Normal Inspection Throat/Mouth: Normal Voice, No Airway Compromise, Other (dental caries and fractures of upper left molars) Head: Atraumatic, Normocephalic Neck: Normal Inspection, Supple, Non-Tender, Full Range of Motion Respiratory/Chest: No Respiratory Distress, Lungs Clear, Normal Breath Sounds, No Accessory Muscle Use, Chest Non-Tender Cardiovascular: Normal Peripheral Pulses, Regular Rate, Rhythm, No Edema, No Gallop, No JVD, No Murmur, No Rub Peripheral Pulses: 2+: Radial (L), Radial (R) GI/Abdominal: Normal Bowel Sounds, Soft, Non-Tender (Male) Exam: Deferred Rectal (Males) Exam: Deferred Back Exam: Normal Inspection, Full Range of Motion, NT Extremities: Normal Inspection, Normal Range of Motion, Non-Tender, Normal Capillary Refill, No Pedal Edema Neurological: Alert, Oriented, CN II-XII Intact, Normal Cognition, Normal Gait, Normal Reflexes, No Motor/Sensory Deficits Psychiatric: Normal Affect, Normal Mood Skin Exam: Warm, Dry, Intact, Normal Color, No Rash Lymphatic: No Adenopathy ED GENERAL MEDICAL PROCEDURES - Additional/Other Procedure(s) Other (Free Text) Procedure(s): Supraperiosteal infiltration performed to the left upper mucobuccal fold with Bupivicaine 0.5%. 1.8mL injected. No complications. Was first numbed with a Lolli from the dental box. Course - Vital Signs Last Recorded V/S: Last Vital Signs Temp 97.4 F 03/25/20 20:05 Pulse 104 H 03/25/20 20:05 Resp 16 03/25/20 20:05 BP 132/96 H 03/25/20 20:05 Pulse Ox 99 03/25/20 20:05 - Orders/Labs/Meds Meds: Medications Discontinued Medications Generic Name Dose Route Start Last Admin Trade Name Gary PRN Reason Stop Dose Admin Hydrocodone Bitart/Acetaminophen Confirm 03/25/20 20:41 [place] 325-10 Mg Administered 03/25/20 20:42 Dose 1 tab .ROUTE .STK-MED ONE Departure - Departure Time of Disposition: 20:35 Disposition: Home, Self-Care 01 Condition: Fair Clinical Impression: Pain due to dental caries - Discharge Information *PRESCRIPTION DRUG MONITORING PROGRAM REVIEWED*: No *COPY OF PRESCRIPTION DRUG MONITORING REPORT IN PATIENT MARI: No Instructions: How to Use Cold Therapy, [id number] Referrals: iTesha Mariscal MD [Primary Care Provider] - Forms: ED Department Discharge Additional Instructions: May use ice and heat to the area Take antibiotics as prescribed Take Ibuprofen and Tylenol as directed Follow up with dentistry on Wednesday RX: [place] one time, sent home with patient Sepsis Event Note - Focused Exam Vital Signs: Vital Signs Temp Pulse Resp BP Pulse Ox 03/25/20 20:05 97.4 F 104 H 16 132/96 H 99 Date Exam was Performed: 03/25/20 Time Exam was Performed: 20:55
[2020-03-25 20:13] VITALS: BP 132/96; PULSE 104
[2020-03-25] MEDS ORDERED: Acetaminophen/HYDROcodone 325-10 MG Tab ONE (20:41)
== END 2020-03-25 20:45 | disposition home or self-care (01) ==
LOC: DL.ED 20:00
DX: K03.81 Cracked tooth (principal); K02.9 Dental caries, unspecified; J45.909 Unspecified asthma, uncomplicated; E11.9 Type 2 diabetes mellitus without complications; Z79.84 Long term (current) use of oral hypoglycemic drugs
CPT/HCPCS: 64400; 99282; A9270

== ENCOUNTER 2020-03-28 | Emergency (ER) | payer MEDICAID ==
[2020-03-28 00:40] VITALS: BP 130/74; PULSE 84
--- NOTE | 2020-03-28 00:52 | EDM.PDOC ---
ED HPI GENERAL MEDICAL PROBLEM - General Chief Complaint: ENT Problem Stated Complaint: BACK LEFT UPPER TOP, CHECK TO INFECTED GUM Time Seen by Provider: 03/28/20 00:52 Source of Information: Reports: Patient, RN, RN Notes Reviewed History Limitations: Reports: No Limitations - History of Present Illness INITIAL COMMENTS - FREE TEXT/NARRATIVE: Patient presents to ER with complaint of left upper dental pain. Patient had 2 teeth extracted on Wednesday. States he has had throbbing pain since then. Patient states he has been following the directions of his dentist, has not been smoking, has only been eating soup, and has been rinsing his mouth thoroughly. Patient continues to take antibiotics that were prescribed in the ER prior to the tooth extraction. Patient states he has 2 clindamycin doses left, and continues to take the Augmentin of which he has about 8 days left. She denies any fever or chills. States he has been using Tylenol and ibuprofen for pain, and has been resting/sleeping a lot today. Patient states he is diabetic. Onset: Gradual Left Upper Gums Pain Score (Numeric/FACES): 9 - Related Data Allergies Allergy/AdvReac Type Severity Reaction Status Date / Time No Known Allergies Allergy Verified 03/28/20 00:40 Home Meds: Home Meds Ibuprofen 800 mg PO ASDIRECTED PRN 06/03/18 [History] SitaGLIPtin [Januvia] 100 mg PO BEDTIME 08/17/19 [History] Rosuvastatin Calcium 5 mg PO DAILY 03/28/20 [History] Sildenafil [Viagra] 50 mg PO BEDTIME PRN 03/28/20 [History] Past Medical History - Past Health History Medical/Surgical History: Denies Medical/Surgical History HEENT History: Reports: Other (See Below) Other HEENT History: [place] teeth removal November 25, 2019 Cardiovascular History: Reports: None Respiratory History: Reports: Asthma Gastrointestinal History: Reports: GERD, Hiatal Hernia Genitourinary History: Reports: None Musculoskeletal History: Reports: Back Pain, Chronic, Other (See Below) Other Musculoskeletal History: left knee injury in 2016. buldging disc. L4-5. Back surgery in 2017 Neurological History: Reports: Other (See Below) Other Neuro History: bulging L4 & L5 discs. sciatic nerve pain Psychiatric History: Reports: Addiction Endocrine/Metabolic History: Reports: Diabetes, Type II Hematologic History: Reports: None Immunologic History: Reports: None Oncologic (Cancer) History: Reports: None Dermatologic History: Reports: None - Infectious Disease History Infectious Disease History: Reports: Chicken Pox - Past Surgical History Head Surgeries/Procedures: Reports: None HEENT Surgical History: Reports: Oral Surgery Cardiovascular Surgical History: Reports: None GI Surgical History: Reports: None Male Surgical History: Reports: None Endocrine Surgical History: Reports: None Neurological Surgical History: Reports: Lumbar Spine Social & Family History - Family History Family Medical History: Noncontributory : Reports: Diabetic Nephropathy Other Family History: mother Musculoskeletal: Reports: Arthritis Other Musculoskeletal Family History: mother Oncologic: Reports: Brain, Lung Other Oncologic Family History: father - Tobacco Use Smoking Status *Q: Current Every Day Smoker Years of Tobacco use: 15 Packs/Tins Daily: 0.5 Second Hand Smoke Exposure: Yes - Caffeine Use Caffeine Use: Reports: Coffee, Soda - Recreational Drug Use Recreational Drug Use: No - Living Situation & Occupation Living situation: Reports: with Family Occupation: Employed ED ROS GENERAL - Review of Systems Review Of Systems: Comprehensive ROS is negative, except as noted in HPI. ED EXAM, GENERAL - Physical Exam Exam: See Below Exam Limited By: No Limitations General Appearance: Alert, WD/WN, Mild Distress Eye Exam: Bilateral Eye: EOMI, Normal Inspection Ears: Normal External Exam, Hearing Grossly Normal Nose: Normal Inspection Throat/Mouth: Normal Voice, No Airway Compromise, Other (No blood clot noted in the extraction sites, white bone noted in the second molar extraction site. Tissue is erythematous and inflamed.) Head: Atraumatic, Normocephalic Neck: Normal Inspection, Supple, Non-Tender, Full Range of Motion Respiratory/Chest: No Respiratory Distress, Lungs Clear, Normal Breath Sounds, No Accessory Muscle Use, Chest Non-Tender Cardiovascular: Normal Peripheral Pulses, Regular Rate, Rhythm, No Edema, No Gallop, No JVD, No Murmur, No Rub GI/Abdominal: Normal Bowel Sounds, Soft, Non-Tender (Male) Exam: Deferred Rectal (Males) Exam: Deferred Back Exam: Normal Inspection, Full Range of Motion, NT Extremities: Normal Inspection, Normal Range of Motion, Non-Tender, Normal Capillary Refill, No Pedal Edema Neurological: Alert, Oriented, CN II-XII Intact, Normal Cognition, Normal Gait, Normal Reflexes, No Motor/Sensory Deficits Psychiatric: Normal Mood, Flat Affect Skin Exam: Warm, Dry, Intact, Normal Color, No Rash Lymphatic: No Adenopathy ED GENERAL MEDICAL PROCEDURES - Additional/Other Procedure(s) Other (Free Text) Procedure(s): Extraction site in the left upper jaw of molars was rinsed with a 10cc syringe of Normal Saline and an 18g jelco to remove food particles. The area was then dried with 2x2. Dry Socket paste placed in the left upper molar extraction areas. Course - Vital Signs Last Recorded V/S: Last Vital Signs Temp 97.7 F 03/28/20 00:36 Pulse 84 03/28/20 00:36 Resp 18 03/28/20 00:36 BP 130/74 03/28/20 00:36 Pulse Ox 97 03/28/20 00:36 Departure - Departure Time of Disposition: 01:42 Disposition: Home, Self-Care 01 Condition: Fair Clinical Impression: Dry socket, Pain, dental - Discharge Information *PRESCRIPTION DRUG MONITORING PROGRAM REVIEWED*: No *COPY OF PRESCRIPTION DRUG MONITORING REPORT IN PATIENT MARI: No Instructions: Dental Dry Socket, [id number] Forms: ED Department Discharge Additional Instructions: Continue to follow Dentist's instructions Follow up with your Dentist Continue taking antibiotics that were prescribed previously Keep your blood sugars under control May use Tylenol and/or Ibuprofen as directed for pain Sepsis Event Note - Evaluation Sepsis Screening Result: No Definite Risk - Focused Exam Vital Signs: Vital Signs Temp Pulse Resp BP Pulse Ox 03/28/20 00:36 97.7 F 84 18 130/74 97 Date Exam was Performed: 03/28/20 Time Exam was Performed: 02:10
== END 2020-03-28 01:44 | disposition home or self-care (01) ==
LOC: DL.ED
DX: M27.3 Alveolitis of jaws (principal); J45.909 Unspecified asthma, uncomplicated; E11.9 Type 2 diabetes mellitus without complications; F17.210 Nicotine dependence, cigarettes, uncomplicated; Z79.84 Long term (current) use of oral hypoglycemic drugs; Z79.899 Other long term (current) drug therapy
CPT/HCPCS: 99282

== ENCOUNTER 2020-04-04 20:41 | Emergency (ER) | payer MEDICAID ==
[2020-04-04] MEDS ORDERED: Cyclobenzaprine 10 MG Tab PO ONE (20:42)
[2020-04-04] MEDS ORDERED: Acetaminophen/HYDROcodone 325-10 MG Tab PO ONE (20:42)
[2020-04-04 22:24] VITALS: BP 145/80; PULSE 82
[2020-04-04] MEDS ORDERED: Cyclobenzaprine 10 MG Tab ONE (23:06)
[2020-04-04] MEDS ORDERED: Acetaminophen/HYDROcodone 325-10 MG Tab ONE (23:06)
--- NOTE | 2020-04-04 23:13 | EDM.PDOC ---
ED HPI GENERAL MEDICAL PROBLEM - General Chief Complaint: Back Pain or Injury Stated Complaint: pain in back Time Seen by Provider: 04/04/20 22:30 Source of Information: Reports: Patient History Limitations: Reports: No Limitations - History of Present Illness INITIAL COMMENTS - FREE TEXT/NARRATIVE: Familiar patient with chronic back pain and "failed " remote surgery. presents with c/o new onset back pain tonight after falling from ladder missed steps while cleaning gutters. 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 Left Back Pain Score (Numeric/FACES): 8 - Related Data Allergies Allergy/AdvReac Type Severity Reaction Status Date / Time No Known Allergies Allergy Verified 04/04/20 22:13 Home Meds: Home Meds Ibuprofen 800 mg PO ASDIRECTED PRN 06/03/18 [History] SitaGLIPtin [Januvia] 100 mg PO BEDTIME 08/17/19 [History] Rosuvastatin Calcium 5 mg PO DAILY 03/28/20 [History] Sildenafil [Viagra] 50 mg PO BEDTIME PRN 03/28/20 [History] Past Medical History - Past Health History Medical/Surgical History: Denies Medical/Surgical History HEENT History: Reports: Other (See Below) Other HEENT History: [place] teeth removal November 25, 2019 Cardiovascular History: Reports: None Respiratory History: Reports: Asthma Gastrointestinal History: Reports: GERD, Hiatal Hernia Genitourinary History: Reports: None Musculoskeletal History: Reports: Back Pain, Chronic, Other (See Below) Other Musculoskeletal History: left knee injury in 2016. buldging disc. L4-5. Back surgery in 2017 Neurological History: Reports: Other (See Below) Other Neuro History: bulging L4 & L5 discs. sciatic nerve pain Psychiatric History: Reports: Addiction Endocrine/Metabolic History: Reports: Diabetes, Type II Hematologic History: Reports: None Immunologic History: Reports: None Oncologic (Cancer) History: Reports: None Dermatologic History: Reports: None - Infectious Disease History Infectious Disease History: Reports: Chicken Pox - Past Surgical History Head Surgeries/Procedures: Reports: None HEENT Surgical History: Reports: Oral Surgery Cardiovascular Surgical History: Reports: None GI Surgical History: Reports: None Male Surgical History: Reports: None Endocrine Surgical History: Reports: None Neurological Surgical History: Reports: Lumbar Spine Social & Family History - Family History Family Medical History: Noncontributory : Reports: Diabetic Nephropathy Other Family History: mother Musculoskeletal: Reports: Arthritis Other Musculoskeletal Family History: mother Oncologic: Reports: Brain, Lung Other Oncologic Family History: father - Tobacco Use Smoking Status *Q: Current Every Day Smoker Years of Tobacco use: 17 Packs/Tins Daily: 1 - Caffeine Use Caffeine Use: Reports: Coffee - Recreational Drug Use Recreational Drug Use: No - Living Situation & Occupation Living situation: Reports: with Family Occupation: Employed ED ROS GENERAL - Review of Systems Review Of Systems: Comprehensive ROS is negative, except as noted in HPI. ED EXAM,LOWER BACK PAIN/INJURY - Physical Exam Exam: See Below Exam Limited By: No Limitations General Appearance: Alert, Moderate Distress Eye Exam: Bilateral Eye: EOMI Ears: Normal External Exam Nose: Normal Inspection Throat/Mouth: Normal Inspection Head: Atraumatic, Normocephalic Neck: Normal Inspection Respiratory/Chest: No Respiratory Distress, Normal Breath Sounds, Chest Non- Tender Cardiovascular: Normal Peripheral Pulses, Regular Rate, Rhythm Back Exam: Muscle Spasm (lumbar bilateral), Paraspinal Tenderness (lumbar belt line). No: Vertebral Tenderness Extremities: Normal Inspection Neurological: Alert, Normal Mood/Affect, Oriented x 3, Abnormal Gait (antalgic stooped posture), Straight Leg Raise (L), Straight Leg Raise (R). No: Abnormal Sensation, Tremor, Saddle Anesthesia Psychiatric: Normal Affect Skin Exam: Warm, Dry, Intact, Normal Color Course - Vital Signs Last Recorded V/S: Last Vital Signs Temp 98.3 F 04/04/20 22:20 Pulse 82 04/04/20 22:20 Resp 18 04/04/20 22:20 BP 145/80 H 04/04/20 22:20 Pulse Ox 99 04/04/20 22:20 - Orders/Labs/Meds Meds: Medications Discontinued Medications Generic Name Dose Route Start Last Admin Trade Name Freq PRN Reason Stop Dose Admin Hydrocodone Bitart/Acetaminophen Confirm 04/04/20 23:06 [place] 325-10 Mg Administered 04/04/20 23:07 Dose 2 tab .ROUTE .STK-MED ONE Hydrocodone Bitart/Acetaminophen 1 tab 04/04/20 20:42 [place] 325-10 Mg PO 04/04/20 20:43 .STK-MED ONE Cyclobenzaprine HCl Confirm 04/04/20 23:06 Flexeril Administered 04/04/20 23:07 Dose 20 mg .ROUTE .STK-MED ONE Cyclobenzaprine HCl 10 mg 04/04/20 20:42 Flexeril PO 04/04/20 20:43 .STK-MED ONE Departure - Departure Time of Disposition: 23:09 Disposition: Home, Self-Care 01 Condition: Good Clinical Impression: Acute exacerbation of chronic low back pain - Discharge Information *PRESCRIPTION DRUG MONITORING PROGRAM REVIEWED*: No *COPY OF PRESCRIPTION DRUG MONITORING REPORT IN PATIENT MARI: No Instructions: Acute Back Pain, Adult Forms: ED Department Discharge Additional Instructions: ice alternate tylenol and ibuprofen every 4 hours as needed for discomfort, not to exceed 3000mg of iether in 24 hours flexeril 10mg one every 8 hours as needed for back spasm #12 Hydrocodone 10/325 one every 6 hours as needed for severe pain follow with primary in am Sepsis Event Note (ED) - Evaluation Sepsis Screening Result: No Definite Risk
== END 2020-04-04 23:37 | disposition home or self-care (01) ==
LOC: DL.ED 20:41
DX: G89.29 Other chronic pain (principal); M54.5 Low back pain; J45.909 Unspecified asthma, uncomplicated; E11.9 Type 2 diabetes mellitus without complications; F17.210 Nicotine dependence, cigarettes, uncomplicated; Z79.84 Long term (current) use of oral hypoglycemic drugs; Z79.899 Other long term (current) drug therapy
CPT/HCPCS: 99283; A9270

== ENCOUNTER 2020-04-14 12:36 | Emergency (ER) | payer MEDICAID ==
[2020-04-14 12:50] VITALS: BP 147/92; PULSE 100
[2020-04-14] MEDS ORDERED: Cyclobenzaprine 10 MG Tab PO ONE (12:56)
--- NOTE | 2020-04-14 13:06 | EDM.PDOC ---
Scribed by Silvina Medeiros 04/14/20 1302 for Matty Chairez PA ED HPI GENERAL MEDICAL PROBLEM - General Chief Complaint: Back Pain or Injury Stated Complaint: BACK PAIN Time Seen by Provider: 04/14/20 12:41 Source of Information: Reports: Patient, RN, RN Notes Reviewed History Limitations: Reports: No Limitations - History of Present Illness INITIAL COMMENTS - FREE TEXT/NARRATIVE: This 34 yo male patient reports to the ED with a 1 1/2 week history of lower back pain with sciatica to his left hip and leg. The patient reports he has been seen by Dr. Mariscal and was given some muscle relaxer and a steroid. The patient reports he took the muscle relaxer and finished the steroids yesterday, but continues to have back pain and back spasms. The patient is attempting to get into surgery in [place] and is also attempting to get into pain management for continued evaluation and care. Duration: Week(s):, Constant, Getting Worse Location: Reports: Back, Lower Extremity, Left Quality: Reports: Ache, Dull Severity: Moderate Improves with: Reports: None Worsens with: Reports: None Context: Reports: Other Associated Symptoms: Reports: No Other Symptoms - Related Data Allergies Allergy/AdvReac Type Severity Reaction Status Date / Time No Known Allergies Allergy Verified 04/14/20 12:50 Home Meds: Home Meds Ibuprofen 800 mg PO ASDIRECTED PRN 06/03/18 [History] SitaGLIPtin [Januvia] 100 mg PO BEDTIME 08/17/19 [History] Rosuvastatin Calcium 5 mg PO DAILY 03/28/20 [History] Sildenafil [Viagra] 50 mg PO BEDTIME PRN 03/28/20 [History] Past Medical History - Past Health History Medical/Surgical History: Denies Medical/Surgical History HEENT History: Reports: Other (See Below) Other HEENT History: [place] teeth removal November 25, 2019 Cardiovascular History: Reports: None Respiratory History: Reports: Asthma Gastrointestinal History: Reports: GERD, Hiatal Hernia Genitourinary History: Reports: None Musculoskeletal History: Reports: Back Pain, Chronic, Other (See Below) Other Musculoskeletal History: left knee injury in 2016. buldging disc. L4-5. Back surgery in 2017 Neurological History: Reports: Other (See Below) Other Neuro History: bulging L4 & L5 discs. sciatic nerve pain Psychiatric History: Reports: Addiction Endocrine/Metabolic History: Reports: Diabetes, Type II Hematologic History: Reports: None Immunologic History: Reports: None Oncologic (Cancer) History: Reports: None Dermatologic History: Reports: None - Infectious Disease History Infectious Disease History: Reports: Chicken Pox - Past Surgical History Head Surgeries/Procedures: Reports: None HEENT Surgical History: Reports: Oral Surgery Cardiovascular Surgical History: Reports: None GI Surgical History: Reports: None Male Surgical History: Reports: None Endocrine Surgical History: Reports: None Neurological Surgical History: Reports: Lumbar Spine Social & Family History - Family History Family Medical History: Noncontributory : Reports: Diabetic Nephropathy Other Family History: mother Musculoskeletal: Reports: Arthritis Other Musculoskeletal Family History: mother Oncologic: Reports: Brain, Lung Other Oncologic Family History: father - Caffeine Use Caffeine Use: Reports: Coffee - Living Situation & Occupation Living situation: Reports: with Family Occupation: Employed ED ROS GENERAL - Review of Systems Review Of Systems: Comprehensive ROS is negative, except as noted in HPI. ED EXAM,LOWER BACK PAIN/INJURY - Physical Exam Exam: See Below Exam Limited By: No Limitations General Appearance: Alert, WD/WN, Moderate Distress Eye Exam: Bilateral Eye: EOMI, Normal Inspection, PERRL Ears: Normal External Exam, Normal Canal, Hearing Grossly Normal, Normal TMs Nose: Normal Inspection, Normal Mucosa, No Blood Throat/Mouth: Normal Inspection, Normal Lips, Normal Teeth, Normal Gums, Normal Oropharynx, Normal Voice, No Airway Compromise Head: Atraumatic, Normocephalic Neck: Normal Inspection, Supple, Non-Tender, Full Range of Motion Respiratory/Chest: No Respiratory Distress, Lungs Clear, Normal Breath Sounds, No Accessory Muscle Use, Chest Non-Tender Cardiovascular: Normal Peripheral Pulses, Regular Rate, Rhythm, No Edema, No Gallop, No JVD, No Murmur, No Rub GI/Abdominal: Normal Bowel Sounds, Soft, Non-Tender, No Organomegaly, No Distention, No Abnormal Bruit, No Mass (Male) Exam: Deferred Rectal (Males) Exam: Deferred Back Exam: Muscle Spasm, Paraspinal Tenderness Extremities: Normal Inspection, Normal Range of Motion, Non-Tender, No Pedal Edema, Normal Capillary Refill Neurological: Alert, Normal Mood/Affect, Normal Dorsiflexion, CN II-XII Intact, Normal Plantar Flexion, Normal Gait, Normal Reflexes, No Motor/Sensory Deficits, Oriented x 3 Psychiatric: Normal Affect, Normal Mood Skin Exam: Warm, Dry, Intact, Normal Color, No Rash Lymphatic: No Adenopathy Course - Vital Signs Last Recorded V/S: Last Vital Signs Temp 36.9 C 04/14/20 12:45 Pulse 100 04/14/20 12:45 Resp 16 04/14/20 12:45 BP 147/92 H 04/14/20 12:45 Pulse Ox 99 04/14/20 12:45 - Orders/Labs/Meds Orders: Active Orders 24 hr Category Date Time Status Cyclobenzaprine [Flexeril] Med 04/14/20 12:56 Once 10 mg PO ONETIME ONE Departure - Departure Time of Disposition: 13:01 Disposition: Home, Self-Care 01 Condition: Fair Clinical Impression: Sciatica of left side, Acute exacerbation of chronic low back pain - Discharge Information *PRESCRIPTION DRUG MONITORING PROGRAM REVIEWED*: Yes *COPY OF PRESCRIPTION DRUG MONITORING REPORT IN PATIENT MARI: Yes Instructions: Chronic Back Pain, [id number], Sciatica, [id number] Forms: ED Department Discharge Care Plan Goals: The patient was advised of the examination results during the visit. The patient was given an oral dose of Flexeril while in the ED. The patient was discharged with a script for Flexeril (10 mg) #30 to take 1 by mouth 3 times per day as needed. The patient should not drive a motor while taking the Flexeril. If the patient has any additional symptoms or concerns, the patient should either return to the emergency department or visit his primary care facility. Sepsis Event Note (ED) - Focused Exam Vital Signs: Vital Signs Temp Pulse Resp BP Pulse Ox 04/14/20 12:45 36.9 C 100 16 147/92 H 99 - My Orders Last 24 Hours: My Active Orders 04/14/20 12:56 Cyclobenzaprine [Flexeril] 10 mg PO ONETIME ONE - Assessment/Plan Last 24 Hours: My Active Orders 04/14/20 12:56 Cyclobenzaprine [Flexeril] 10 mg PO ONETIME ONE I have read and agree with the documentation that has been completed regarding this visit. By signing this record, I attest that the documentation was completed in my physical presence and is an accurate record of the encounter.
== END 2020-04-14 13:12 | disposition home or self-care (01) ==
LOC: DL.ED 12:36
DX: M54.42 Lumbago with sciatica, left side (principal); J45.909 Unspecified asthma, uncomplicated; E11.9 Type 2 diabetes mellitus without complications; Z79.84 Long term (current) use of oral hypoglycemic drugs; Z79.899 Other long term (current) drug therapy
CPT/HCPCS: 99283; A9270

== ENCOUNTER 2020-04-16 01:18 | Emergency (ER) | payer MEDICAID | END 2020-04-16 01:20 | disposition left against medical advice (07) | LOC: DL.ED 01:18 | DX: Z53.21 Procedure and treatment not carried out due to patient leaving prior to being seen by health care provider (principal) ==

== ENCOUNTER 2020-04-29 00:25 | Emergency (ER) | payer MEDICAID ==
[2020-04-29 00:57] VITALS: BP 135/61; PULSE 80
== END 2020-04-29 01:25 | disposition left against medical advice (07) ==
LOC: DL.ED 00:25
DX: Z53.21 Procedure and treatment not carried out due to patient leaving prior to being seen by health care provider (principal)

== ENCOUNTER 2020-10-20 22:48 | Emergency (ER) | payer MEDICAID ==
[2020-10-20 23:06] VITALS: BP 142/90; PULSE 108
[2020-10-20] MEDS ORDERED: Butorphanol 2 MG/ML SDV IM ONE (23:09)
[2020-10-20] MEDS ORDERED: Promethazine 25 MG/ML SDV IM ONE (23:09)
--- NOTE | 2020-10-20 23:13 | EDM.PDOC ---
ED HPI GENERAL MEDICAL PROBLEM - General Chief Complaint: Back Pain or Injury Stated Complaint: BACK AND LEG PAIN Time Seen by Provider: 10/20/20 23:10 Source of Information: Reports: Patient History Limitations: Reports: No Limitations - History of Present Illness INITIAL COMMENTS - FREE TEXT/NARRATIVE: h/o LBP with prior h/o surgery. Lower Back Pain Score (Numeric/FACES): 7 - Related Data Allergies Allergy/AdvReac Type Severity Reaction Status Date / Time No Known Allergies Allergy Verified 10/20/20 22:55 Home Meds: Home Meds Ibuprofen 800 mg PO ASDIRECTED PRN 06/03/18 [History] SitaGLIPtin [Januvia] 100 mg PO BEDTIME 08/17/19 [History] Rosuvastatin Calcium 5 mg PO DAILY 03/28/20 [History] Sildenafil [Viagra] 50 mg PO BEDTIME PRN 03/28/20 [History] Past Medical History - Past Health History Medical/Surgical History: Denies Medical/Surgical History HEENT History: Reports: Other (See Below) Other HEENT History: [place] teeth removal November 25, 2019 Cardiovascular History: Reports: None Respiratory History: Reports: Asthma Gastrointestinal History: Reports: GERD, Hiatal Hernia Genitourinary History: Reports: None Musculoskeletal History: Reports: Back Pain, Chronic, Other (See Below) Other Musculoskeletal History: left knee injury in 2016. buldging disc. L4-5. Back surgery in 2017 Neurological History: Reports: Other (See Below) Other Neuro History: bulging L4 & L5 discs. sciatic nerve pain Psychiatric History: Reports: Addiction Endocrine/Metabolic History: Reports: Diabetes, Type II Hematologic History: Reports: None Immunologic History: Reports: None Oncologic (Cancer) History: Reports: None Dermatologic History: Reports: None - Infectious Disease History Infectious Disease History: Reports: Chicken Pox - Past Surgical History Head Surgeries/Procedures: Reports: None HEENT Surgical History: Reports: Oral Surgery Cardiovascular Surgical History: Reports: None GI Surgical History: Reports: None Male Surgical History: Reports: None Endocrine Surgical History: Reports: None Neurological Surgical History: Reports: Lumbar Spine Social & Family History - Family History Family Medical History: No Pertinent Family History : Reports: Diabetic Nephropathy Other Family History: mother Musculoskeletal: Reports: Arthritis Other Musculoskeletal Family History: mother Oncologic: Reports: Brain, Lung Other Oncologic Family History: father - Tobacco Use Tobacco Use Status *Q: Current Every Day Tobacco User Years of Tobacco use: 17 Packs/Tins Daily: 0.5 - Caffeine Use Caffeine Use: Reports: Coffee - Recreational Drug Use Recreational Drug Use: No - Living Situation & Occupation Living situation: Reports: with Family Occupation: Employed ED ROS GENERAL - Review of Systems Review Of Systems: Comprehensive ROS is negative, except as noted in HPI. ED EXAM,LOWER BACK PAIN/INJURY - Physical Exam Exam: See Below Exam Limited By: No Limitations General Appearance: Alert, WD/WN, Mild Distress, Moderate Distress, Other (discomfort) Eye Exam: Bilateral Eye: PERRL (pupils ER @ 4mm) Ears: Hearing Grossly Normal Throat/Mouth: Normal Voice, No Airway Compromise Head: Atraumatic Neck: Non-Tender, Full Range of Motion Respiratory/Chest: No Respiratory Distress Cardiovascular: Regular Rate, Rhythm GI/Abdominal: Soft, Non-Tender (Male) Exam: Deferred Rectal (Males) Exam: Deferred Back Exam: Muscle Spasm, Paraspinal Tenderness, Other (LS region, gait limited to pain) Neurological: Alert, No Motor/Sensory Deficits, Oriented x 3 Psychiatric: Tearful Skin Exam: Warm, Dry, Normal Color Lymphatic: No Adenopathy Course - Vital Signs Last Recorded V/S: Last Vital Signs Temp 36.7 C 10/20/20 22:54 Pulse 108 H 10/20/20 22:54 Resp 16 10/20/20 22:54 BP 142/90 H 10/20/20 23:04 Pulse Ox 98 10/20/20 22:54 - Orders/Labs/Meds Orders: Active Orders 24 hr Category Date Time Status Butorphanol [Stadol] Med 10/20/20 23:09 Once 2 mg IM ONETIME ONE Promethazine [Phenergan] Med 10/20/20 23:09 Once 25 mg IM ONETIME ONE Departure - Departure Time of Disposition: 23:12 Disposition: Home, Self-Care 01 Condition: Fair Clinical Impression: Lumbar radiculopathy, acute - Discharge Information Additional Instructions: 1) rest 2) avoid bending lifting straining 3) try heat to sore area 4) follow up at clinic Sepsis Event Note (ED) - Evaluation Sepsis Screening Result: No Definite Risk - Focused Exam Vital Signs: Vital Signs Temp Pulse Resp BP Pulse Ox 10/20/20 23:04 142/90 H 10/20/20 22:54 36.7 C 108 H 16 149/102 H 98 - My Orders Last 24 Hours: My Active Orders 10/20/20 23:09 Butorphanol [Stadol] 2 mg IM ONETIME ONE Promethazine [Phenergan] 25 mg IM ONETIME ONE - Assessment/Plan Last 24 Hours: My Active Orders 10/20/20 23:09 Butorphanol [Stadol] 2 mg IM ONETIME ONE Promethazine [Phenergan] 25 mg IM ONETIME ONE
== END 2020-10-20 23:25 | disposition home or self-care (01) ==
LOC: DL.ED 22:48
DX: M54.16 Radiculopathy, lumbar region (principal); J45.909 Unspecified asthma, uncomplicated; E11.9 Type 2 diabetes mellitus without complications; F17.210 Nicotine dependence, cigarettes, uncomplicated; Z79.899 Other long term (current) drug therapy
CPT/HCPCS: 96372; 99283; J0595; J2550

== ENCOUNTER 2021-01-01 20:31 | Emergency (ER) | payer MEDICAID ==
[2021-01-01 21:29] VITALS: BP 132/80; PULSE 89
[2021-01-01] MEDS ORDERED: Orphenadrine 60 MG/2 ML Inj IM ONE (22:20)
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
== END 2021-01-01 22:43 | disposition home or self-care (01) ==
LOC: DL.ED 20:31
DX: M62.830 Muscle spasm of back (principal); J45.909 Unspecified asthma, uncomplicated; E11.9 Type 2 diabetes mellitus without complications; Z79.84 Long term (current) use of oral hypoglycemic drugs; Z79.899 Other long term (current) drug therapy; Z72.0 Tobacco use
CPT/HCPCS: 96372; 99283; J2360

== ENCOUNTER 2021-02-16 21:23 | Emergency (ER) | payer MEDICAID ==
[2021-02-16 21:47] VITALS: BP 159/83; PULSE 90
[2021-02-16] MEDS ORDERED: methylPREDNISolone Sodium Succinate 125 MG/2 ML SDV IM ONE (21:55)
[2021-02-16] MEDS ORDERED: Orphenadrine 60 MG/2 ML Inj IM ONE (21:55)
--- NOTE | 2021-02-16 22:04 | EDM.PDOC ---
ED HPI GENERAL MEDICAL PROBLEM - General Chief Complaint: Back Pain or Injury Stated Complaint: LOWER BACK HURTS Time Seen by Provider: 02/16/21 21:50 Source of Information: Reports: Patient History Limitations: Reports: No Limitations - History of Present Illness INITIAL COMMENTS - FREE TEXT/NARRATIVE: This 35 yo male patient reports to the ED with lower back pain going down to both legs. The patient reports the symptoms started yesterday, but have been getting worse. The patient reports he took Tylenol and ibuprofen with little to no symptom relief. The patient reports he did see his primary care provider regarding his lower back and knee pain. The patient reports he had an MRI of his knee, but not of his lower back. The patient reports he currently works at the [employer] in [facility]. 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, NSAIDS - Related Data Allergies Allergy/AdvReac Type Severity Reaction Status Date / Time No Known Allergies Allergy Verified 02/16/21 21:36 Home Meds: Home Meds Ibuprofen 800 mg PO ASDIRECTED PRN 06/03/18 [History] SitaGLIPtin [Januvia] 100 mg PO BEDTIME 08/17/19 [History] Rosuvastatin Calcium 5 mg PO DAILY 03/28/20 [History] Sildenafil [Viagra] 50 mg PO BEDTIME PRN 03/28/20 [History] Past Medical History - Past Health History Medical/Surgical History: Denies Medical/Surgical History HEENT History: Reports: Other (See Below) Other HEENT History: [place] teeth removal November 25, 2019 Cardiovascular History: Reports: Hypertension Respiratory History: Reports: Asthma Gastrointestinal History: Reports: GERD, Hiatal Hernia Genitourinary History: Reports: None Musculoskeletal History: Reports: Back Pain, Chronic, Other (See Below) Other Musculoskeletal History: left knee injury in 2016. buldging disc. L4-5. Back surgery in 2017 Neurological History: Reports: Other (See Below) Other Neuro History: bulging L4 & L5 discs. sciatic nerve pain Psychiatric History: Reports: Addiction Endocrine/Metabolic History: Reports: Diabetes, Type II Hematologic History: Reports: None Immunologic History: Reports: None Oncologic (Cancer) History: Reports: None Dermatologic History: Reports: None - Infectious Disease History Infectious Disease History: Reports: Chicken Pox - Past Surgical History Head Surgeries/Procedures: Reports: None HEENT Surgical History: Reports: Oral Surgery Cardiovascular Surgical History: Reports: None GI Surgical History: Reports: None Other GI Surgeries/Procedures: umbilical hernia repair Male Surgical History: Reports: None Endocrine Surgical History: Reports: None Neurological Surgical History: Reports: Lumbar Spine Musculoskeletal Surgical History: Reports: Other (See Below) Other Musculoskeletal Surgeries/Procedures:: back surgery 2016 Social & Family History - Family History Family Medical History: No Pertinent Family History : Reports: Diabetic Nephropathy Other Family History: mother Musculoskeletal: Reports: Arthritis Other Musculoskeletal Family History: mother Oncologic: Reports: Brain, Lung Other Oncologic Family History: father - Tobacco Use Tobacco Use Status *Q: Current Every Day Tobacco User Years of Tobacco use: 10 Packs/Tins Daily: 0.5 - Caffeine Use Caffeine Use: Reports: Soda - Recreational Drug Use Recreational Drug Use: No - Living Situation & Occupation Living situation: Reports: with Family Occupation: Employed ED ROS GENERAL - Review of Systems Review Of Systems: Comprehensive ROS is negative, except as noted in HPI. ED EXAM,LOWER BACK PAIN/INJURY - Physical Exam Exam: See Below Exam Limited By: No Limitations General Appearance: Alert, WD/WN, Moderate Distress Eye Exam: Bilateral Eye: EOMI, Normal Inspection, PERRL Ears: Normal External Exam, Normal Canal, Hearing Grossly Normal, Normal TMs Nose: Normal Inspection, Normal Mucosa, No Blood Throat/Mouth: Normal Inspection, Normal Lips, Normal Teeth, Normal Gums, Normal Oropharynx, Normal Voice, No Airway Compromise Head: Atraumatic, Normocephalic Neck: Normal Inspection, Supple, Non-Tender, Full Range of Motion Respiratory/Chest: No Respiratory Distress, Lungs Clear, Normal Breath Sounds, No Accessory Muscle Use, Chest Non-Tender Cardiovascular: Normal Peripheral Pulses, Regular Rate, Rhythm, No Edema, No Gallop, No JVD, No Murmur, No Rub (Male) Exam: Deferred Rectal (Males) Exam: Deferred Back Exam: Paraspinal Tenderness (lower back), Vertebral Tenderness (lower back) Extremities: Normal Inspection, Normal Range of Motion, Non-Tender, No Pedal Edema, Normal Capillary Refill Neurological: Alert, Normal Mood/Affect, Normal Dorsiflexion, CN II-XII Intact, Normal Plantar Flexion, Normal Gait, Normal Reflexes, No Motor/Sensory Deficits, Oriented x 3 Psychiatric: Normal Affect, Normal Mood Skin Exam: Warm, Dry, Intact, Normal Color, No Rash Lymphatic: No Adenopathy Course - Vital Signs Last Recorded V/S: Last Vital Signs Temp 36.6 C 02/16/21 21:41 Pulse 90 02/16/21 21:41 Resp 18 02/16/21 21:41 BP 159/83 H 02/16/21 21:41 Pulse Ox 98 02/16/21 21:41 - Orders/Labs/Meds Meds: Medications Discontinued Medications Generic Name Dose Route Start Last Admin Trade Name Freq PRN Reason Stop Dose Admin Methylprednisolone Sodium Succinate 125 mg 02/16/21 21:55 Methylprednisolone Sodium Succinate 125 Mg/2 Ml Sdv IM 02/16/21 21:56 ONETIME ONE Orphenadrine Citrate 60 mg 02/16/21 21:55 Orphenadrine 60 Mg/2 Ml Inj IM 02/16/21 21:56 ONETIME ONE Departure - Departure Time of Disposition: 22:01 Disposition: Home, Self-Care 01 Condition: Fair Clinical Impression: Acute exacerbation of chronic low back pain - Discharge Information *PRESCRIPTION DRUG MONITORING PROGRAM REVIEWED*: Not Applicable *COPY OF PRESCRIPTION DRUG MONITORING REPORT IN PATIENT MARI: Not Applicable Instructions: Back Injury Prevention, [id number] Care Plan Goals: The patient was advised of the examination results during the visit. The patient was given injections of Norflex (muscle relaxer) and SoluMedrol (steroid) while in the ED. The patient was discharged with scripts for 1) Prednisone (20 mg) #10 to take 1 by mouth daily for 5 days and Flexeril (10 mg) #10 to take 1 by mouth at bedtime as needed. The patient was encouraged to follow-up with his primary care facility for continued evaluation and further management. If the patient has any additional symptoms or concerns, the patient should either return to the emergency department or visit his primary care facility. Sepsis Event Note (ED) - Evaluation Sepsis Screening Result: No Definite Risk - Focused Exam Vital Signs: Vital Signs Temp Pulse Resp BP Pulse Ox 02/16/21 21:41 36.6 C 90 18 159/83 H 98
== END 2021-02-16 22:22 | disposition home or self-care (01) ==
LOC: DL.ED 21:23
DX: G89.29 Other chronic pain (principal); M54.5 Low back pain; I10 Essential (primary) hypertension; J45.909 Unspecified asthma, uncomplicated; E11.9 Type 2 diabetes mellitus without complications; Z79.84 Long term (current) use of oral hypoglycemic drugs; Z79.899 Other long term (current) drug therapy; Z72.0 Tobacco use
CPT/HCPCS: 96372; 99283; J2360; J2930

== ENCOUNTER 2021-03-06 16:28 | Emergency (ER) | payer MEDICAID ==
[2021-03-06 16:44] VITALS: BP 146/96; PULSE 100
--- NOTE | 2021-03-06 16:50 | EDM.PDOC ---
ED HPI GENERAL MEDICAL PROBLEM - General Chief Complaint: General Stated Complaint: RIGHT SIDE IS NUMB Time Seen by Provider: 03/06/21 16:35 Source of Information: Reports: Patient History Limitations: Reports: No Limitations - History of Present Illness INITIAL COMMENTS - FREE TEXT/NARRATIVE: This 35 yo male patient reports to the ED due to right arm numbness and tingling. The patient also reports numbness in his right leg. The patient states he went to bed last night at about midnight and slept until this afternoon at 1500. When he woke up, the patient reports he was sweating (the bed was wet from sweating). The patient reports he has had a headache (took Tylenol). The patient also reports his "entire right side is numb". When asked further questions the patient reports he feels like there are pin pricks in his right hand and his leg feels numb. The patient admits that he has had some numbness in his right leg in the past, but today it feels like it is up into his buttocks. The patient does not know of any exposure to COVID, but has not been vaccinated at this time. 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 - Related Data Allergies Allergy/AdvReac Type Severity Reaction Status Date / Time No Known Allergies Allergy Verified 03/06/21 16:40 Home Meds: Home Meds Ibuprofen 800 mg PO ASDIRECTED PRN 06/03/18 [History] SitaGLIPtin [Januvia] 100 mg PO BEDTIME 08/17/19 [History] Rosuvastatin Calcium 5 mg PO DAILY 03/28/20 [History] Sildenafil [Viagra] 50 mg PO BEDTIME PRN 03/28/20 [History] Past Medical History - Past Health History Medical/Surgical History: Denies Medical/Surgical History HEENT History: Reports: Other (See Below) Other HEENT History: [place] teeth removal November 25, 2019 Cardiovascular History: Reports: Hypertension Respiratory History: Reports: Asthma Gastrointestinal History: Reports: GERD, Hiatal Hernia Genitourinary History: Reports: None Musculoskeletal History: Reports: Back Pain, Chronic, Other (See Below) Other Musculoskeletal History: left knee injury in 2016. buldging disc. L4-5. Back surgery in 2017 Neurological History: Reports: Other (See Below) Other Neuro History: bulging L4 & L5 discs. sciatic nerve pain Psychiatric History: Reports: Addiction Endocrine/Metabolic History: Reports: Diabetes, Type II Hematologic History: Reports: None Immunologic History: Reports: None Oncologic (Cancer) History: Reports: None Dermatologic History: Reports: None - Infectious Disease History Infectious Disease History: Reports: Chicken Pox - Past Surgical History Head Surgeries/Procedures: Reports: None HEENT Surgical History: Reports: Oral Surgery Cardiovascular Surgical History: Reports: None GI Surgical History: Reports: None Other GI Surgeries/Procedures: umbilical hernia repair Male Surgical History: Reports: None Endocrine Surgical History: Reports: None Neurological Surgical History: Reports: Lumbar Spine Musculoskeletal Surgical History: Reports: Other (See Below) Other Musculoskeletal Surgeries/Procedures:: back surgery 2016 Social & Family History - Family History Family Medical History: No Pertinent Family History : Reports: Diabetic Nephropathy Other Family History: mother Musculoskeletal: Reports: Arthritis Other Musculoskeletal Family History: mother Oncologic: Reports: Brain, Lung Other Oncologic Family History: father - Caffeine Use Caffeine Use: Reports: Soda - Living Situation & Occupation Living situation: Reports: with Family Occupation: Employed ED ROS GENERAL - Review of Systems Review Of Systems: Comprehensive ROS is negative, except as noted in HPI. ED EXAM, GENERAL - Physical Exam Exam: See Below Exam Limited By: No Limitations General Appearance: Alert, WD/WN, No Apparent Distress Eye Exam: Bilateral Eye: EOMI, Normal Inspection, PERRL Ears: Normal External Exam, Normal Canal, Hearing Grossly Normal, Normal TMs Nose: Normal Inspection, Normal Mucosa, No Blood Throat/Mouth: Normal Inspection, Normal Lips, Normal Teeth, Normal Gums, Normal Oropharynx, Normal Voice, No Airway Compromise Head: Atraumatic, Normocephalic Neck: Normal Inspection, Supple, Non-Tender, Full Range of Motion Respiratory/Chest: No Respiratory Distress, Lungs Clear, Normal Breath Sounds, No Accessory Muscle Use, Chest Non-Tender Cardiovascular: Normal Peripheral Pulses, Regular Rate, Rhythm, No Edema, No Gallop, No JVD, No Murmur, No Rub GI/Abdominal: Normal Bowel Sounds, Soft, Non-Tender, No Organomegaly, No Distention, No Abnormal Bruit, No Mass (Male) Exam: Deferred Rectal (Males) Exam: Deferred, Prostate Nodule Back Exam: Normal Inspection Extremities: Arm Pain (right arm numbness), Leg Pain (right leg numbness (follows sciatic nerve)) Neurological: Alert, Oriented, CN II-XII Intact, Normal Cognition, Normal Reflexes, No Motor/Sensory Deficits Psychiatric: Normal Affect, Normal Mood Skin Exam: Warm, Dry, Intact, Normal Color, No Rash Lymphatic: No Adenopathy Course - Vital Signs Last Recorded V/S: Last Vital Signs Temp 35.6 C L 03/06/21 16:41 Pulse 100 03/06/21 16:41 Resp 18 03/06/21 16:41 BP 146/96 H 03/06/21 16:41 Pulse Ox 97 03/06/21 16:41 - Orders/Labs/Meds Orders: Active Orders 24 hr Category Date Time Status predniSONE Med 03/06/21 17:50 Once 40 mg PO ONETIME ONE Labs: Laboratory Tests 03/06/21 03/06/21 03/06/21 Range/Units 16:45 16:56 16:56 WBC 13.8 H (5.0-10.0) 10^3/uL RBC 5.60 (4.6-6.2) 10^6/uL Hgb 16.8 (14.0-18.0) g/dL Hct 49.5 (40.0-54.0) % MCV 88.4 (80-100) fL MCH 30.0 (27.0-34.0) pg MCHC 33.9 (33.0-35.0) g/dL Plt Count 242 (150-450) 10^3/uL Neut % (Auto) 65.4 (42.2-75.2) % Lymph % (Auto) 24.4 (20.5-50.1) % [place] % (Auto) 8.2 H (2-8) % Eos % (Auto) 1.7 (1.0-3.0) % Baso % (Auto) 0.3 (0.0-1.0) % Sodium 136 (136-145) mmol/L Potassium 4.2 (3.5-5.1) mmol/L Chloride 99 (98-107) mmol/L Carbon Dioxide 28 (21-32) mmol/L Anion Gap 13.2 H (7-13) mEq/L BUN 10 (7-18) mg/dL Creatinine 0.92 (0.70-1.30) mg/dL Est Cr Clr Drug Dosing 126.65 mL/min Estimated GFR (MDRD) > 60 BUN/Creatinine Ratio 10.9 (No establ ref range) Glucose 302 H (70-99) mg/dL Calcium 8.3 L (8.5-10.1) mg/dL Total Bilirubin 0.6 (0.2-1.0) mg/dL AST 14 L (15-37) U/L ALT 34 (16-63) U/L Alkaline Phosphatase 60 (46-116) U/L Total Protein 7.2 (6.4-8.2) g/dL Albumin 3.8 (3.4-5.0) g/dL Globulin 3.4 Albumin/Globulin Ratio 1.1 Influenza Type A RNA Negative (NEGATIVE) Influenza Type B RNA Negative (NEGATIVE) SARS-CoV-2 RNA (BITA) Negative (NEGATIVE) Departure - Departure Time of Disposition: 17:51 Disposition: Home, Self-Care 01 Condition: Fair Clinical Impression: Neuropathy - Discharge Information *PRESCRIPTION DRUG MONITORING PROGRAM REVIEWED*: Not Applicable *COPY OF PRESCRIPTION DRUG MONITORING REPORT IN PATIENT MARI: Not Applicable Instructions: Peripheral Neuropathy Forms: ED Department Discharge Care Plan Goals: The patient was advised of the examination and lab results during the visit. The patient was given an oral dose of Prednisone (40 mg) while in the ED. The patient was discharged with a script for Prednisone (20 mg) #8 to take 2 by mouth daily for 4 days. If the patient has any additional symptoms or concerns, the patient should either return to the emergency department or visit his primary care facility. Sepsis Event Note (ED) - Focused Exam Vital Signs: Vital Signs Temp Pulse Resp BP Pulse Ox 03/06/21 16:41 35.6 C L 100 18 146/96 H 97 - My Orders Last 24 Hours: My Active Orders 03/06/21 17:50 predniSONE 40 mg PO ONETIME ONE - Assessment/Plan Last 24 Hours: My Active Orders 03/06/21 17:50 predniSONE 40 mg PO ONETIME ONE
[2021-03-06 17:28] LABS: CORONAVIRUS COVID-19 NAA NEGATIVE (NEGATIVE)
[2021-03-06 17:43] LABS: ANION GAP 13.2 mEq/L (7-13); CHLORIDE,CL 99 mmol/L (98-107); SODIUM,NA 136 mmol/L (136-145)
[2021-03-06] MEDS ORDERED: predniSONE 20 MG Tab PO ONE (17:50)
== END 2021-03-06 18:01 | disposition home or self-care (01) ==
LOC: DL.ED 16:28
DX: E11.40 Type 2 diabetes mellitus with diabetic neuropathy, unspecified (principal); I10 Essential (primary) hypertension; J45.909 Unspecified asthma, uncomplicated; Z79.84 Long term (current) use of oral hypoglycemic drugs; Z79.899 Other long term (current) drug therapy; Z20.822 Contact with and (suspected) exposure to COVID-19
CPT/HCPCS: 0240U; 36415; 80053; 85025; 99283; 99284; J7512

== ENCOUNTER 2021-08-12 19:46 | Emergency (ER) | payer MEDICAID ==
[2021-08-12 20:10] VITALS: BP 148/100; PULSE 92
[2021-08-12] MEDS ORDERED: Benzonatate 100 MG Cap PO ONE (20:23)
--- NOTE | 2021-08-12 20:24 | EDM.PDOC ---
ED HPI GENERAL MEDICAL PROBLEM - General Chief Complaint: Back Pain or Injury Stated Complaint: 97.2* TEMP, COUGH & BACK Time Seen by Provider: 08/12/21 20:19 Source of Information: Reports: Patient - History of Present Illness INITIAL COMMENTS - FREE TEXT/NARRATIVE: Pt is here for a cough for 2 days. He feels like it is getting worse. He denies any fevers or chills. His cough is making his chronic low back pain worse. He reports a runny nose, but no congestion. No shortness of breath or chest pain. He denies any known sick contacts or exposure to COVID. He did take some cough syrup last night with relief. He does take Tylenol and ibuprofen for his chronic back pain. Pt notes the back pain will radiate down his legs. No trouble with bowel or bladder control. No numbness or tingling. No weakness. - Related Data Allergies Allergy/AdvReac Type Severity Reaction Status Date / Time No Known Allergies Allergy Verified 08/12/21 20:01 Home Meds: Home Meds Ibuprofen 800 mg PO ASDIRECTED PRN 06/03/18 [History] SitaGLIPtin [Januvia] 100 mg PO BEDTIME 08/17/19 [History] Rosuvastatin Calcium 5 mg PO DAILY 03/28/20 [History] Sildenafil [Viagra] 50 mg PO BEDTIME PRN 03/28/20 [History] Gabapentin [Neurontin] 100 mg PO TID 08/12/21 [History] Past Medical History - Past Health History Medical/Surgical History: Denies Medical/Surgical History HEENT History: Reports: Other (See Below) Other HEENT History: [place] teeth removal November 25, 2019 Cardiovascular History: Reports: Hypertension Respiratory History: Reports: Asthma Gastrointestinal History: Reports: GERD, Hiatal Hernia Genitourinary History: Reports: None Musculoskeletal History: Reports: Back Pain, Chronic, Other (See Below) Other Musculoskeletal History: left knee injury in 2016. buldging disc. L4-5. Back surgery in 2017 Neurological History: Reports: Other (See Below) Other Neuro History: bulging L4 & L5 discs. sciatic nerve pain Psychiatric History: Reports: Addiction Endocrine/Metabolic History: Reports: Diabetes, Type II Hematologic History: Reports: None Immunologic History: Reports: None Oncologic (Cancer) History: Reports: None Dermatologic History: Reports: None - Infectious Disease History Infectious Disease History: Reports: Chicken Pox - Past Surgical History Head Surgeries/Procedures: Reports: None HEENT Surgical History: Reports: Oral Surgery Cardiovascular Surgical History: Reports: None GI Surgical History: Reports: None Other GI Surgeries/Procedures: umbilical hernia repair Male Surgical History: Reports: None Endocrine Surgical History: Reports: None Neurological Surgical History: Reports: Lumbar Spine Musculoskeletal Surgical History: Reports: Other (See Below) Other Musculoskeletal Surgeries/Procedures:: back surgery 2016 Social & Family History - Family History Family Medical History: No Pertinent Family History : Reports: Diabetic Nephropathy Other Family History: mother Musculoskeletal: Reports: Arthritis Other Musculoskeletal Family History: mother Oncologic: Reports: Brain, Lung Other Oncologic Family History: father - Tobacco Use Tobacco Use Status *Q: Current Every Day Tobacco User Years of Tobacco use: 15 Packs/Tins Daily: 0.5 - Caffeine Use Caffeine Use: Reports: Soda - Recreational Drug Use Recreational Drug Use: No - Living Situation & Occupation Living situation: Reports: with Family Occupation: Employed ED ROS GENERAL - Review of Systems Review Of Systems: Comprehensive ROS is negative, except as noted in HPI. ED EXAM,LOWER BACK PAIN/INJURY - Physical Exam Exam: See Below Exam Limited By: No Limitations General Appearance: Alert, WD/WN, No Apparent Distress Eye Exam: Bilateral Eye: Normal Inspection Ears: Normal External Exam Nose: Normal Inspection Throat/Mouth: Normal Inspection, Normal Voice, No Airway Compromise Head: Atraumatic, Normocephalic Neck: Normal Inspection, Supple, Non-Tender Respiratory/Chest: No Respiratory Distress, Lungs Clear, Normal Breath Sounds, No Accessory Muscle Use. No: Crackles, Rales, Wheezing Cardiovascular: Normal Peripheral Pulses, No Murmur GI/Abdominal: Soft, No Distention (Male) Exam: Deferred Rectal (Males) Exam: Deferred Back Exam: Normal Inspection, Paraspinal Tenderness (L>R lower back with moderate muscle spasms) Extremities: Normal Range of Motion, No Pedal Edema Neurological: Alert, Normal Mood/Affect, No Motor/Sensory Deficits Psychiatric: Normal Affect, Normal Mood Skin Exam: Warm, Dry, Intact, Normal Color, No Rash Lymphatic: No Adenopathy Course - Vital Signs Last Recorded V/S: Last Vital Signs Temp 98 F 08/12/21 20:02 Pulse 92 08/12/21 20:02 Resp 20 08/12/21 20:02 BP 148/100 H 08/12/21 20:02 Pulse Ox 98 08/12/21 20:02 - Re-Assessments/Exams Free Text/Narrative Re-Assessment/Exam: discussed with pt his symptoms are consistent with a viral URI and there was no indication for antibiotics at this time. He is to continue taking his Tylenol and ibuprofen for his back pain. Offered Toradol today, but pt refused stating that it makes his pain worse. Discussed use of heat therapy. Tessalon cap given in the ER. Rx for Tessalon caps provided to pt to be filled at the pharmacy tomorrow. Pt verbalized understanding. 08/12/21 20:32 Departure - Departure Time of Disposition: 20:24 Disposition: Home, Self-Care 01 Condition: Fair Clinical Impression: Viral URI with cough Chronic back pain Qualifiers: Back pain location: low back pain Back pain laterality: right Sciatica presence: without sciatica Qualified Code(s): M54.5 - Low back pain - Discharge Information *PRESCRIPTION DRUG MONITORING PROGRAM REVIEWED*: No *COPY OF PRESCRIPTION DRUG MONITORING REPORT IN PATIENT MARI: No Instructions: Viral Respiratory Infection, Jitd-Dy-Oarg Forms: ED Department Discharge Additional Instructions: Tessalon caps three times daily as needed for cough Continue Tylenol and ibuprofen for your back pain Heat therapy as needed for back pain If your symptoms worsen, call/return to the ER Follow up with your primary care provider in 3-5 days. Sepsis Event Note (ED) - Evaluation Sepsis Screening Result: No Definite Risk - Focused Exam Vital Signs: Vital Signs Temp Pulse Resp BP Pulse Ox 08/12/21 20:02 98 F 92 20 148/100 H 98
== END 2021-08-12 20:35 | disposition home or self-care (01) ==
LOC: DL.ED 19:46
DX: J06.9 Acute upper respiratory infection, unspecified (principal); G89.29 Other chronic pain; M54.50 Low back pain, unspecified; I10 Essential (primary) hypertension; E11.9 Type 2 diabetes mellitus without complications; Z72.0 Tobacco use; Z79.899 Other long term (current) drug therapy
CPT/HCPCS: 99283; A9270

== ENCOUNTER 2021-10-01 21:29 | Emergency (ER) | payer MEDICAID ==
[2021-10-01 22:21] VITALS: BP 136/97; PULSE 89
[2021-10-01] MEDS ORDERED: Clindamycin HCl 150 MG Cap PO ONE (22:45)
--- NOTE | 2021-10-01 22:45 | EDM.PDOC ---
ED HPI GENERAL MEDICAL PROBLEM - General Chief Complaint: ENT Problem Stated Complaint: RIGHT SIDE TOP AND BOTTOM TEETH Time Seen by Provider: 10/01/21 22:40 Source of Information: Reports: Patient, RN, RN Notes Reviewed History Limitations: Reports: No Limitations - History of Present Illness INITIAL COMMENTS - FREE TEXT/NARRATIVE: Osman is a 35 y/o male who presents to the ED via personal vehicle with complaints of dental pain. The patient reports his pain began four days ago and has progressively worsened in that time. He states he has made an appointment with a local dentist, however he is unable to be examined for five more days. He notes pain and sensitivity to the 13-15 teeth space as well as the 20-17 space. He has taken transient doses of ibuprofen without relief. He denies fever, shaking chills, throat tightness, tongue swelling, palpations, nausea, vomiting, or diarrhea. Right Tooth/Teeth Pain Score (Numeric/FACES): 9 - Related Data Allergies Allergy/AdvReac Type Severity Reaction Status Date / Time No Known Allergies Allergy Verified 10/01/21 22:21 Home Meds: Home Meds Ibuprofen 800 mg PO ASDIRECTED PRN 06/03/18 [History] SitaGLIPtin [Januvia] 100 mg PO BEDTIME 08/17/19 [History] Rosuvastatin Calcium 5 mg PO DAILY 03/28/20 [History] Sildenafil [Viagra] 50 mg PO BEDTIME PRN 03/28/20 [History] Gabapentin [Neurontin] 100 mg PO TID 08/12/21 [History] Past Medical History - Past Health History Medical/Surgical History: Denies Medical/Surgical History HEENT History: Reports: Other (See Below) Other HEENT History: [place] teeth removal November 25, 2019 Cardiovascular History: Reports: Hypertension Respiratory History: Reports: Asthma Gastrointestinal History: Reports: GERD, Hiatal Hernia Genitourinary History: Reports: None Musculoskeletal History: Reports: Back Pain, Chronic, Other (See Below) Other Musculoskeletal History: left knee injury in 2016. buldging disc. L4-5. Back surgery in 2017 Neurological History: Reports: Other (See Below) Other Neuro History: bulging L4 & L5 discs. sciatic nerve pain Psychiatric History: Reports: Addiction Endocrine/Metabolic History: Reports: Diabetes, Type II Hematologic History: Reports: None Immunologic History: Reports: None Oncologic (Cancer) History: Reports: None Dermatologic History: Reports: None - Infectious Disease History Infectious Disease History: Reports: Chicken Pox - Past Surgical History Head Surgeries/Procedures: Reports: None HEENT Surgical History: Reports: Oral Surgery Cardiovascular Surgical History: Reports: None GI Surgical History: Reports: None Other GI Surgeries/Procedures: umbilical hernia repair Male Surgical History: Reports: None Endocrine Surgical History: Reports: None Neurological Surgical History: Reports: Lumbar Spine Musculoskeletal Surgical History: Reports: Other (See Below) Other Musculoskeletal Surgeries/Procedures:: back surgery 2016 Social & Family History - Family History Family Medical History: No Pertinent Family History : Reports: Diabetic Nephropathy Other Family History: mother Musculoskeletal: Reports: Arthritis Other Musculoskeletal Family History: mother Oncologic: Reports: Brain, Lung Other Oncologic Family History: father - Tobacco Use Tobacco Use Status *Q: Current Every Day Tobacco User Years of Tobacco use: 15 Packs/Tins Daily: 0.5 - Caffeine Use Caffeine Use: Reports: Coffee - Recreational Drug Use Recreational Drug Use: No - Living Situation & Occupation Living situation: Reports: with Family Occupation: Employed ED ROS GENERAL - Review of Systems Review Of Systems: Comprehensive ROS is negative, except as noted in HPI. ED EXAM, GENERAL - Physical Exam Exam: See Below Exam Limited By: No Limitations General Appearance: Alert, Mild Distress (Dental pain) Eye Exam: Bilateral Eye: EOMI, Normal Inspection, PERRL (3mm) Ears: Normal External Exam, Hearing Grossly Normal Nose: Normal Inspection, Normal Mucosa, No Blood Throat/Mouth: Normal Voice, No Airway Compromise, Other (Pain to palpation of left upper and lower dental spaces). No: Normal Lips (Dry, cracked), Normal Teeth (Multiple missing teeth and caries), Normal Gums (Erythema diffuse to gums) Head: Atraumatic, Normocephalic Neck: Normal Inspection, Supple, Non-Tender, Full Range of Motion. No: Lymphadenopathy (L), Lymphadenopathy (R) Respiratory/Chest: No Respiratory Distress, Lungs Clear, Normal Breath Sounds, No Accessory Muscle Use, Chest Non-Tender Cardiovascular: Normal Peripheral Pulses, Regular Rate, Rhythm, No Gallop, No Murmur, No Rub GI/Abdominal: Normal Bowel Sounds, Soft, Non-Tender (Male) Exam: Deferred Rectal (Males) Exam: Deferred Back Exam: Normal Inspection, Full Range of Motion Extremities: Normal Inspection, Normal Range of Motion, Normal Capillary Refill Neurological: Alert, Oriented, CN II-XII Intact, Normal Cognition, Normal Gait, No Motor/Sensory Deficits Psychiatric: Normal Affect, Normal Mood Skin Exam: Warm, Dry, Intact, Normal Color, No Rash. No: Cyanosis, Jaundice, Mottled, Pallor Course - Vital Signs Last Recorded V/S: Last Vital Signs Temp 97.8 F 10/01/21 22:16 Pulse 89 10/01/21 22:16 Resp 19 10/01/21 22:16 BP 136/97 H 10/01/21 22:16 Pulse Ox 97 10/01/21 22:16 - Orders/Labs/Meds Meds: Medications Discontinued Medications Generic Name Dose Route Start Last Admin Trade Name Gary PRN Reason Stop Dose Admin Clindamycin HCl 300 mg 10/01/21 22:45 10/01/21 23:00 Clindamycin Hcl 150 Mg Cap PO 10/01/21 22:46 300 mg ONETIME ONE Administration - Re-Assessments/Exams Free Text/Narrative Re-Assessment/Exam: 10/01/21 Findings of examination reviewed with patient. Will treat dental infection with clindamycin. Supportive cares for dental pain discussed. Patient instructed to keep dental appointment regardless of antibiotic treatment. Red flag signs and symptoms which would warrant immediate reevaluation reviewed. Patient verbalized understanding and agreement with the plan of care. Departure - Departure Time of Disposition: 23:00 Disposition: Home, Self-Care 01 Condition: Good Clinical Impression: Dental infection, Dental caries - Discharge Information *PRESCRIPTION DRUG MONITORING PROGRAM REVIEWED*: Not Applicable *COPY OF PRESCRIPTION DRUG MONITORING REPORT IN PATIENT MARI: Not Applicable Instructions: Dental Caries, Adult Forms: ED Department Discharge Additional Instructions: Rx: clindamycin 300mg (#40) 1.) Start your antibiotic tomorrow morning. Take all pills until they are gone, even as symptoms improve. 2.) You may take ibuprofen (Advil/Motrin) 400-800mg every six hours, as pain persists. You may also take acetaminophen (Tylenol) 650-1000mg every six hours, as pain persists. You may stagger these medications so you are taking a dose of either every three hours. 3.) Eat soft foods or an only liquid diet until pain improves. Avoid overly co ld or hot foods due to sensitivity. 4.) Continue with your previously scheduled dental appointment. Sepsis Event Note (ED) - Evaluation Sepsis Screening Result: No Definite Risk - Focused Exam Vital Signs: Vital Signs Temp Pulse Resp BP Pulse Ox 10/01/21 22:16 97.8 F 89 19 136/97 H 97
== END 2021-10-01 23:02 | disposition home or self-care (01) ==
LOC: DL.ED 21:29
DX: K04.7 Periapical abscess without sinus (principal); K02.9 Dental caries, unspecified; I10 Essential (primary) hypertension; J45.909 Unspecified asthma, uncomplicated; E11.9 Type 2 diabetes mellitus without complications; Z72.0 Tobacco use; Z79.899 Other long term (current) drug therapy
CPT/HCPCS: 99282; A9270

== ENCOUNTER 2021-11-08 21:00 | Emergency (ER) | payer MEDICAID ==
[2021-11-08 23:00] VITALS: BP 136/98; PULSE 94
== END 2021-11-09 00:08 | disposition home or self-care (01) ==
LOC: DL.ED 21:00
DX: S91.332A Puncture wound without foreign body, left foot, initial encounter (principal); E11.9 Type 2 diabetes mellitus without complications; K21.9 Gastro-esophageal reflux disease without esophagitis; I10 Essential (primary) hypertension; Z79.899 Other long term (current) drug therapy; Z72.0 Tobacco use; W22.09XA Striking against other stationary object, initial encounter
CPT/HCPCS: 73620-LT; 99283-25

== ENCOUNTER 2021-11-17 00:12 | Emergency (ER) | payer MEDICAID ==
[2021-11-17 01:08] LABS: CORONAVIRUS COVID-19 NAA NEGATIVE (NEGATIVE)
[2021-11-17 01:19] VITALS: BP 142/85; PULSE 74
[2021-11-17] MEDS ORDERED: Amoxicillin 500 MG Cap PO ONE (01:40)
== END 2021-11-17 02:10 | disposition home or self-care (01) ==
LOC: DL.ED 00:12
DX: J01.00 Acute maxillary sinusitis, unspecified (principal); E11.9 Type 2 diabetes mellitus without complications; I10 Essential (primary) hypertension; K21.9 Gastro-esophageal reflux disease without esophagitis; F17.210 Nicotine dependence, cigarettes, uncomplicated; Z79.899 Other long term (current) drug therapy; Z20.822 Contact with and (suspected) exposure to COVID-19
CPT/HCPCS: 0240U; 99283; A9270

== ENCOUNTER 2021-12-28 20:58 | Emergency (ER) | payer MEDICAID | END 2021-12-28 21:39 | disposition left against medical advice (07) | LOC: DL.ED 20:58 | DX: Z53.21 Procedure and treatment not carried out due to patient leaving prior to being seen by health care provider (principal) ==

== ENCOUNTER 2022-07-01 19:50 | Emergency (ER) | payer MEDICAID ==
[2022-07-01 20:04] VITALS: BP 152/91; PULSE 95
== END 2022-07-01 20:45 | disposition home or self-care (01) ==
LOC: DL.ED 19:50
DX: S93.411A Sprain of calcaneofibular ligament of right ankle, initial encounter (principal); I10 Essential (primary) hypertension; E11.9 Type 2 diabetes mellitus without complications; K21.9 Gastro-esophageal reflux disease without esophagitis; Z79.899 Other long term (current) drug therapy; X50.1XXA Overexertion from prolonged static or awkward postures, initial encounter
CPT/HCPCS: 73610-RT; 99283

== ENCOUNTER 2022-11-19 18:50 | Emergency (ER) | payer MEDICAID ==
[2022-11-19] MEDS ORDERED: Lidocaine 2% Viscous Solution 15 ML UD PO ONE (18:51)
[2022-11-19 19:13] VITALS: BP 150/88; PULSE 97
[2022-11-19] MEDS ORDERED: Lidocaine 2% Viscous Solution 15 ML UD ONE (19:49)
== END 2022-11-19 19:59 | disposition home or self-care (01) ==
LOC: DL.ED 18:50
DX: K08.89 Other specified disorders of teeth and supporting structures (principal); I10 Essential (primary) hypertension; J45.909 Unspecified asthma, uncomplicated; E11.9 Type 2 diabetes mellitus without complications; Z72.0 Tobacco use; Z88.8 Allergy status to other drugs, medicaments and biological substances
CPT/HCPCS: 64400; 99282; 99283; A9270

== ENCOUNTER 2022-11-23 22:53 | Emergency (ER) | payer MEDICAID ==
[2022-11-23] MEDS ORDERED: Lidocaine 2% Viscous Solution 15 ML UD PO ONE (23:09)
[2022-11-23] MEDS ORDERED: Clindamycin HCl 150 MG Cap PO ONE (23:30)
[2022-11-23 23:34] VITALS: BP 168/95; PULSE 84
== END 2022-11-23 23:55 | disposition home or self-care (01) ==
LOC: DL.ED 22:53
DX: K04.7 Periapical abscess without sinus (principal); K02.9 Dental caries, unspecified; K00.7 Teething syndrome; E11.9 Type 2 diabetes mellitus without complications; K21.9 Gastro-esophageal reflux disease without esophagitis; Z88.8 Allergy status to other drugs, medicaments and biological substances
CPT/HCPCS: 99282; 99283; A9270-GY

== ENCOUNTER 2022-11-28 02:22 | Emergency (ER) | payer MEDICAID | END 2022-11-28 02:32 | disposition left against medical advice (07) | LOC: DL.ED 02:22 | DX: Z53.21 Procedure and treatment not carried out due to patient leaving prior to being seen by health care provider (principal) ==

== ENCOUNTER 2022-12-07 00:25 | Emergency (ER) | payer MEDICAID | END 2022-12-07 01:18 | disposition left against medical advice (07) | LOC: DL.ED 00:25 | DX: Z53.21 Procedure and treatment not carried out due to patient leaving prior to being seen by health care provider (principal) ==

== ENCOUNTER 2023-06-08 00:20 | Emergency (ER) | payer MEDICAID ==
[2023-06-08 01:48] VITALS: BP 149/93; PULSE 85
[2023-06-08] MEDS: Bacitracin Oint 1 GM U/D Packet TOP ONE (02:40)
[2023-06-08] MEDS: Lidocaine 2% with EPINEPHrine 1:200,000 20 ML SDV INJECT ONE (02:40)
== END 2023-06-08 02:37 | disposition home or self-care (01) ==
LOC: DL.ED 00:20
DX: S61.012A Laceration without foreign body of left thumb without damage to nail, initial encounter (principal); I10 Essential (primary) hypertension; J45.909 Unspecified asthma, uncomplicated; E11.9 Type 2 diabetes mellitus without complications; F17.210 Nicotine dependence, cigarettes, uncomplicated; Z88.8 Allergy status to other drugs, medicaments and biological substances; W26.0XXA Contact with knife, initial encounter
CPT/HCPCS: 12001; 99282

== ENCOUNTER 2023-06-19 03:07 | Emergency (ER) | payer MEDICAID ==
[2023-06-19 03:19] VITALS: BP 135/92; PULSE 101
== END 2023-06-19 03:26 | disposition home or self-care (01) ==
LOC: DL.ED 03:07
DX: S61.012D Laceration without foreign body of left thumb without damage to nail, subsequent encounter (principal); I10 Essential (primary) hypertension; J45.909 Unspecified asthma, uncomplicated; E11.9 Type 2 diabetes mellitus without complications; Z88.8 Allergy status to other drugs, medicaments and biological substances; W26.8XXD Contact with other sharp object(s), not elsewhere classified, subsequent encounter
CPT/HCPCS: 99283

== ENCOUNTER 2023-08-16 03:35 | Emergency (ER) | payer SELFPAY ==
[2023-08-16] MEDS ORDERED: Dexamethasone 4 MG/ML SDV IM ONE (03:46)
[2023-08-16 03:56] VITALS: BP 139/86; PULSE 77
== END 2023-08-16 04:13 | disposition home or self-care (01) ==
LOC: DL.ED 03:35
DX: S46.912A Strain of unspecified muscle, fascia and tendon at shoulder and upper arm level, left arm, initial encounter (principal); I10 Essential (primary) hypertension; J45.909 Unspecified asthma, uncomplicated; E11.9 Type 2 diabetes mellitus without complications; Z88.8 Allergy status to other drugs, medicaments and biological substances; X50.9XXA Other and unspecified overexertion or strenuous movements or postures, initial encounter
CPT/HCPCS: 96372; 99283; J1100

== ENCOUNTER 2023-09-11 18:33 | Emergency (ER) | payer SELFPAY ==
[2023-09-11] MEDS ORDERED: Sodium Chloride 0.9% 1,000 ML IV ONE (19:12)
[2023-09-11] MEDS ORDERED: Sodium Chloride 0.9% 10 ML Syringe FLUSH PRN (19:12)
[2023-09-11] MEDS ORDERED: cloNIDine 0.1 MG Tab PO ONE ×2 (19:14→20:17)
[2023-09-11] MEDS ORDERED: Take Home: hydrOXYzine HCl 25 MG Tab, 4 Tab Pack PO ONE (20:48)
[2023-09-11] MEDS ORDERED: Take Home: Ondansetron 4 MG Tab.DIS, 5 Tab Pack PO ONE (20:48)
[2023-09-11] MEDS ORDERED: Take Home: LORazepam 1 MG Tab, 2 Tab Pack PO ONE (20:48)
[2023-09-11 20:52] VITALS: PULSE 73
[2023-09-11] MEDS ORDERED: cloNIDine 0.1 MG Tab ONE (21:06)
[2023-09-11 21:36] VITALS: BP 130/78
== END 2023-09-11 20:36 | disposition home or self-care (01) ==
LOC: DL.ED 18:33
DX: F11.23 Opioid dependence with withdrawal (principal); E11.9 Type 2 diabetes mellitus without complications; F17.210 Nicotine dependence, cigarettes, uncomplicated; Z79.84 Long term (current) use of oral hypoglycemic drugs; Z88.8 Allergy status to other drugs, medicaments and biological substances
CPT/HCPCS: 93005; 93010; 96374; 99284-25; 99285; A9270-GY; J3360; J3490; J7030; Q0162

== ENCOUNTER 2023-09-12 16:29 | Emergency (ER) | payer SELFPAY ==
[2023-09-12 16:50] VITALS: BP 136/99; PULSE 92
[2023-09-12] MEDS: Buprenorphine 8 MG Tab.SL ONE ×2 (17:11→18:13)
== END 2023-09-12 18:16 | disposition home or self-care (01) ==
LOC: DL.ED 16:29
DX: F11.23 Opioid dependence with withdrawal (principal); F17.210 Nicotine dependence, cigarettes, uncomplicated; Z86.16 Personal history of COVID-19; Z88.8 Allergy status to other drugs, medicaments and biological substances
CPT/HCPCS: 99283; A9270-GY

== ENCOUNTER 2024-03-10 22:57 | Emergency (ER) | payer MEDICAID ==
[2024-03-10 23:13] VITALS: BP 168/106; PULSE 86
[2024-03-10] MEDS: Take Home: Amoxicillin/Clavulanate K 875-125 MG Tab, 6 Tab Pack PO ONE (23:46)
== END 2024-03-10 23:53 | disposition home or self-care (01) ==
LOC: DL.ED 22:57
DX: K04.7 Periapical abscess without sinus (principal); K02.9 Dental caries, unspecified; F17.210 Nicotine dependence, cigarettes, uncomplicated; Z86.16 Personal history of COVID-19; Z88.8 Allergy status to other drugs, medicaments and biological substances
CPT/HCPCS: 99282; A9270